=== PATIENT | male | born 1960 | race Caucasian/White ===

== ENCOUNTER 2021-12-01 07:05 | Inpatient (IN) | payer MEDICARE, OTHER ==
[~2021-12-01] VITALS: Ht 185.4 cm; Wt 120.6 kg
[2021-12-01] MEDS ORDERED: IPRATROPIUM BROM 0.5 MG/2.5ML INH SOL NEB ONE (07:15)
[2021-12-01] MEDS ORDERED: methylPREDNISolone SOD SUCC 125 MG/2 ML VL IV ONE (07:15)
[2021-12-01] MEDS ORDERED: ALBUTEROL SULF 2.5 MG/0.5ML(0.5%) NEB SOLN NEB ONE (07:15)
[2021-12-01] MEDS: MAGNESIUM SULFATE 1GM/100ML 100 ML IV SCH ×2 (07:33→08:15)
[2021-12-01 07:36] LABS: Basophils # (auto) 0.1 10 ^3/uL (0-0.2); Basophils % (auto) 0.9 % (0.0-2.0); Eosinophils # (auto) 0.2 10 ^3/uL (0-0.8); Eosinophils % (auto) 1.2 % (0.0-7.0); Hematocrit 38.9 % (41.0-53.0); Hemoglobin 12.4 g/dL (13.5-17.5); Lymphocytes # (auto) 1.5 10 ^3/uL (0.4-5.4); Lymphocytes % (auto) 11.3 % (10.0-50.0); Mean Corpuscular Hemoglobin 27.3 pg (28.0-32.0); Mean Corpuscular Hgb Conc. 31.9 g/dL (32.0-36.0); Mean Corpuscular Volume 85.7 fL (80.0-100.0); Monocytes # (auto) 1.1 10 ^3/uL (0-1.3); Monocytes % (auto) 8.4 % (0.0-12.0); Neutrophils # (auto) 10.5 10 ^3/uL (1.6-8.6); Neutrophils % (auto) 78.2 % (37.0-80.0); Nucleated Red Blood Cells % 0.1 %; Red Blood Cells 4.54 10^6/uL (4.5-5.90); Red Cell Distribution Width 14.4 % (11.8-14.3); White Blood Cell 13.4 10^3/uL (4.4-10.8)
[2021-12-01 08:00] LABS: Albumin 3.1 g/dL (3.4-5.0); BUN/Creatinine Ratio 18.8; Calcium 9.2 mg/dL (8.5-10.1); Magnesium 2.2 mg/dL (1.6-2.6); Potassium 4.1 mmol/L (3.5-5.1)
[2021-12-01] MEDS ORDERED: VANCOMYCIN 1GM/250ML 250 ML IV ONE (08:00)
[2021-12-01] MEDS ORDERED: CEFEPIME 1 GM in SODIUM CHL 0.9% 50 ML IV ONE ×2 (08:00→09:45)
[2021-12-01 08:07] LABS: Bilirubin, Total 0.4 mg/dL (0.2-1.0); Total Protein 7.9 g/dL (6.4-8.2)
[2021-12-01] MEDS ORDERED: IOHEXOL 350 MG/ML 100ML IJ ONE (08:47)
[2021-12-01] MEDS ORDERED: MORPHINE SULFATE 4 MG/ML SYR/VIAL IV PRN (11:00)
[2021-12-01] MEDS ORDERED: ONDANSETRON HCL 4 MG/2 ML VIAL IV PRN (11:00)
[2021-12-01] MEDS ORDERED: FUROSEMIDE 40 MG/4 ML VIAL IV ONE (11:15)
[2021-12-01] MEDS ORDERED: ALBUTEROL SULF 2.5 MG/0.5ML(0.5%) NEB SOLN NEB PRN (11:15)
[2021-12-01 11:44] LABS: Cholesterol 142 mg/dL (< 200)
[2021-12-01 11:47] LABS: HDL Cholesterol 49 mg/dL (40-59); LDL Cholesterol 74 mg/dL (< 100); Triglycerides 101 mg/dL (< 150)
[2021-12-01 12:58] LABS: Urine Bacteria NONE SEEN /hpf (None Seen); Urine Blood Negative /uL (Negative); Urine Mucus FEW (None Seen); Urine WBC 1 /hpf (0 - 3)
[2021-12-01 13:01] LABS: Alcohol, Urine < 3.0 mg/dL (0-10); Amphetamine Screen, Urine NEGATIVE (NEGATIVE); Barbiturate Scree,Urine NEGATIVE (NEGATIVE); Benzodiazephine Screen, Urine NEGATIVE (NEGATIVE); Cannabinoid Screen, Urine NEGATIVE (NEGATIVE); Cocaine Screen, Urine NEGATIVE (NEGATIVE); Opiate Scree,Urine POSITIVE (NEGATIVE); Phencyclidine Screen, Urine NEGATIVE (NEGATIVE)
[2021-12-01] MEDS: AZITHROMYCIN 500MG/ 250ML 250 ML IV SCH (13:02)
[2021-12-01] MEDS: SODIUM CHLORIDE 0.9% 1,000 ML IV SCH ×2 (13:03→23:30)
[2021-12-01 13:05] VITALS: BP 113/64
[2021-12-01 13:06] LABS: Urine Specific Gravity > 1.050 (1.001-1.035)
[2021-12-01 15:05] VITALS: BP 120/70
[2021-12-01 15:10] VITALS: BP 120/70
[2021-12-01 20:00] VITALS: BP 119/63
[2021-12-01 22:00] VITALS: BP 119/63
[2021-12-01] MEDS: methylPREDNISolone SOD SUCC 40 MG/ML VL IV SCH (22:16)
[2021-12-02] VITALS (7 sets, daily range): BP systolic 123–141; BP diastolic 63–78
[2021-12-02 06:32] LABS: Basophils # (auto) 0 10 ^3/uL (0-0.2); Basophils % (auto) 0.1 % (0.0-2.0); Eosinophils # (auto) 0 10 ^3/uL (0-0.8); Hemoglobin 11.1 g/dL (13.5-17.5); Lymphocytes # (auto) 0.8 10 ^3/uL (0.4-5.4); Lymphocytes % (auto) 7.4 % (10.0-50.0); Mean Corpuscular Hemoglobin 27.3 pg (28.0-32.0); Mean Corpuscular Hgb Conc. 32.5 g/dL (32.0-36.0); Mean Corpuscular Volume 83.9 fL (80.0-100.0); Monocytes # (auto) 0.5 10 ^3/uL (0-1.3); Monocytes % (auto) 4.1 % (0.0-12.0); Neutrophils # (auto) 9.8 10 ^3/uL (1.6-8.6); Neutrophils % (auto) 88.4 % (37.0-80.0); Nucleated Red Blood Cells % 0.1 %; Red Blood Cells 4.05 10^6/uL (4.5-5.90); Red Cell Distribution Width 14.2 % (11.8-14.3)
[2021-12-02 06:41] LABS: Potassium 4.2 mmol/L (3.5-5.1)
[2021-12-02 06:46] LABS: Albumin 2.7 g/dL (3.4-5.0); BUN/Creatinine Ratio 28.4
[2021-12-02 06:48] LABS: Bilirubin, Total 0.2 mg/dL (0.2-1.0); Total Protein 7.1 g/dL (6.4-8.2)
[2021-12-02] MEDS: AZITHROMYCIN 500MG/ 250ML 250 ML IV SCH (10:09)
[2021-12-02] MEDS: methylPREDNISolone SOD SUCC 40 MG/ML VL IV SCH ×2 (10:09→22:06)
[2021-12-02] MEDS: ENOXAPARIN SOD 40 MG/0.4 ML SYRINGE SC SCH (10:10)
[2021-12-02] MEDS ORDERED: cefTRIAXone 1GM/50ML D5W 50 ML IV ONE (12:00)
[2021-12-02] MEDS ORDERED: SERT50TA19 PO (13:43)
[2021-12-02] MEDS ORDERED: CIPR500T4 PO (13:43)
[2021-12-02] MEDS ORDERED: HYDR-4798 PO ×2 (13:43)
[2021-12-02] MEDS ORDERED: ENO40SY SUBCUT (13:43)
[2021-12-02] MEDS ORDERED: ERGO1CAP23 PO (13:43)
[2021-12-02] MEDS ORDERED: BISO5TAB44 PO (13:43)
[2021-12-02] MEDS ORDERED: SERTRALINE HCL 50 MG TAB PO ONE (14:00)
[2021-12-03 05:00] VITALS: BP 144/88
[2021-12-03 07:00] VITALS: BP 130/71
[2021-12-03 08:00] VITALS: BP 130/71
[2021-12-03] MEDS ORDERED: ALBUTEROL SULF 2.5 MG/0.5ML(0.5%) NEB SOLN NEB STA (08:30)
[2021-12-03] MEDS ORDERED: IPRATROPIUM BROM 0.5 MG/2.5ML INH SOL NEB STA (08:30)
[2021-12-03] MEDS ORDERED: ALBUTEROL SULF 2.5 MG/0.5ML(0.5%) NEB SOLN ONE (08:38)
[2021-12-03] MEDS ORDERED: IPRATROPIUM BROM 0.5 MG/2.5ML INH SOL ONE (08:41)
[2021-12-03] MEDS ORDERED: BUDESONIDE (INHALATION) 0.5 MG/2 ML NEB ONE (08:41)
[2021-12-03 08:53] VITALS: BP 141/85
[2021-12-03] MEDS ORDERED: cefTRIAXone 1GM/50ML D5W 50 ML IV SCH (09:00)
[2021-12-03] MEDS: methylPREDNISolone SOD SUCC 40 MG/ML VL IV SCH (09:01)
[2021-12-03] MEDS: AZITHROMYCIN 500MG/ 250ML 250 ML IV SCH (09:01)
[2021-12-03] MEDS: ENOXAPARIN SOD 40 MG/0.4 ML SYRINGE SC SCH (09:03)
[2021-12-03] MEDS: ALBUTEROL SULF 2.5 MG/0.5ML(0.5%) NEB SOLN NEB SCH ×2 (10:00→14:38)
[2021-12-03] MEDS ORDERED: BUDESONIDE (INHALATION) 0.5 MG/2 ML NEB NEB SCH (10:00)
[2021-12-03] MEDS: IPRATROPIUM BROM 0.5 MG/2.5ML INH SOL NEB SCH ×2 (10:00→14:38)
[2021-12-03] MEDS ORDERED: SERTRALINE HCL 50 MG TAB PO SCH (10:00)
[2021-12-03] MEDS ORDERED: PRED20TA2 PO (11:20)
[2021-12-03] MEDS ORDERED: DOXY-112 PO (11:21)
[2021-12-03 13:00] VITALS: BP 124/65
[2021-12-03 14:18] VITALS: BP 130/71
== END 2021-12-03 15:30 | disposition home or self-care (01) | DRG 193 ==
LOC: ER 07:05 → EDBD 07:05 → TELE-EAST 10:57
PROVIDERS: ADMIT Registered Nurse; ATTEND Registered Nurse
PROC: 5A09357 Assistance with Respiratory Ventilation, Less than 24 Consecutive Hours, Continuous Positive Airway Pressure (ICD-10-PCS; principal; 2021-12-01)
DX: J18.9 Pneumonia, unspecified organism (principal); J96.21 Acute and chronic respiratory failure with hypoxia; J96.22 Acute and chronic respiratory failure with hypercapnia; J44.0 Chronic obstructive pulmonary disease with (acute) lower respiratory infection; J44.1 Chronic obstructive pulmonary disease with (acute) exacerbation; D63.8 Anemia in other chronic diseases classified elsewhere; E66.9 Obesity, unspecified; R91.1 Solitary pulmonary nodule; E88.09 Other disorders of plasma-protein metabolism, not elsewhere classified; I48.91 Unspecified atrial fibrillation; Z68.35 Body mass index [BMI] 35.0-35.9, adult; Z68.34 Body mass index [BMI] 34.0-34.9, adult; Z87.891 Personal history of nicotine dependence; Z98.2 Presence of cerebrospinal fluid drainage device; Z99.81 Dependence on supplemental oxygen; Z20.822 Contact with and (suspected) exposure to COVID-19
CPT/HCPCS: 36415; 36600; 71045; 71275; 80053; 80061; 80307; 81001; 82805; 83036; 83605; 83735; 83880; 84443; 84484; 85025; 87040; 87081; 93005; 94640; 94660; 96365; 96366; 96367; 96368; 96375; 99291; G0378; J0696

== ENCOUNTER 2025-02-14 12:50 | Inpatient (IN) | payer MEDICARE, OTHER ==
[~2025-02-14] VITALS: Ht 185.4 cm; Wt 119.4 kg
[~2025-02-14 12:50] MED LIST: BISO5TAB44 PO; CIPR500T4 PO; DOXY-267 PO; ENO40SY SUBCUT; ERGO1CAP23 PO; HYDR-4798 PO; PRED20TA2 PO; SERT-206 PO
--- NOTE | 2025-02-14 13:08 | ED.PDOC ---
SOB-HPI HPI Comments 65 year old male presents to the ED via EMS with a chief complaint of shortness of breath onset 1 day. Per EMS, patient has PMHx COPD, chronic hypoxic respiratory distress. He began experiencing shortness of breath, worsen today after bending over to lift an object. Upon EMS arrival, patient was on 4L O2, sat was 70%, was given 3 breathing treatments in route to ED with no improvement of symptoms. No other symptoms or modifying factors present at this time. Chief Complaint: Shortness of Breath Time Seen by MD: 12:55 Reviewed notes: Medications, Allergies Information Source: Patient, Emergency Med Personnel Mode of Arrival: EMS Severity: Moderate Timing: Days Duration: Since onset Context: With Light Exertion PE Risk Factors: None History of: COPD Prehospital treatment: Breathing Tx (3) Associated Signs and Symptoms: None Past Medical History PAST MEDICAL HISTORY: AFIB, COPD Family History Family History: Reviewed,noncontributory to illness Social History Smoker: Non-Smoker Alcohol: Denies ETOH Use Drugs: Denies Drug Use Lives In: Home Constitutional: denies: chills, diaphoresis, fatigue, fever, malaise, sweats, weakness, others EENTM: denies: blurred vision, double vision, ear bleeding, ear discharge, ear drainage, ear pain, ear ringing, eye pain, eye redness, hearing loss, mouth pain, mouth swelling, nasal discharge, nose bleeding, nose congestion, nose pain, photophobia, tearing, throat pain, throat swelling, voice changes, others Respiratory: reports: shortness of breath; denies: cough, hemoptysis, orthopnea, SOB at rest, SOB with excertion, stridor, wheezing, others Gastrointestinal: denies: abdomen distended, abdominal pain, blood streaked bowels, constipated, diarrhea, dysphagia, difficulty swallowing, hematemesis, melena, nausea, poor appetite, poor fluid intake, rectal bleeding, rectal pain, vomiting, others Genitourinary: denies: burning, dysuria, flank pain, frequency, hematuria, incontinence, penile discharge, penile sore, pain, testicle pain, testicle swelling, urgency, others Neurological: denies: dizziness, fainting, headache, left sided numbness, left sided weakness, numbness, paresthesia, pre-existing deficit, right sided numbness, right sided weakness, seizure, speech problems, tingling, tremors, weakness, others Musculoskeletal: denies: back pain, gout, joint pain, joint swelling, muscle pain, muscle stiffness, neck pain, others Integumetry: denies: bruises, change in color, change in hair/nails, dryness, laceration, lesions, lumps, rash, wounds, others Allergic/Immunocompromised: denies: Difficulty Healing, Frequent Infections, Hives, Itching, others Hematologic/Lymphatic: denies: anemia, blood clots, easy bleeding, easy bruising, swollen glands, others Endocrine: denies: excessive hunger, excessive sweating, excessive thirst, excessive urination, flushing, intolerance to cold, intolerance to heat, unexplained weight gain, unexplained weight loss, others Psychiatric: denies: anxiety, bipolar disorder, depression, hopeless, panic disorder, schizophrenia, sleepless, suicidal, others All Other Systems: Reviewed and Negative Physical Exam General Appearance: Normal HEENT: Normal ENT Inspection, Pharynx Normal, TMs Normal Neck: Full Range of Motion, Non-Tender, Normal, Normal Inspection Respiratory: Decreased Breath Sounds (Bilateral) Cardiovascular: No Edema, No JVD, No Murmur, No Gallop, Normal Peripheral Pulses, Regular Rate/Rhythm Breast Exam: Deferred Gastrointestinal: No Organomegaly, Non Tender, No Pulsatile Mass, Normal Bowel Sounds, Soft Genitalia: Deferred Pelvic: Deferred Rectal: Deferred Extremities: No calf tenderness, Normal capillary refill, Normal inspection, Normal range of motion, Non-tender, No pedal edema Musculoskeletal : Apperance: Normal Neurologic: Alert, can conveyor feeder II-XII nml as Tested, No Motor Deficits, Normal Affect, Normal Mood, No Sensory Deficits Cerebellar Function: Normal Reflexes: Normal Skin: Dry, Normal Color, Warm Lymphatic: No Adenopathy Was a procedure done? Was a procedure done?: No Differential Dx Differential Diagnosis: Anxiety, Asthma, Bronchitis, Cardiogenic Shock, CHF, CO PD, Dysrhythmia, Hyperventilation, Myocardial infarction, Panic Attack, Pneumonia, Pneumothorax, Pulmonary Embolism, Respiratory Distress X-Ray, Labs, Meds, VS Vital Signs Date Time Temp Pulse Resp B/P (MAP) Pulse Ox O2 Delivery O2 Flow Rate FiO2 02/14/25 14:13 99.0 101 23 133/88 95 35 99.0 02/14/25 14:00 90 16 119/80 (93) 92 02/14/25 14:00 92 Nasal Cannula* 4 36 02/14/25 13:57 107 133/88 Facial BiPAP Mask 35 02/14/25 13:54 95 Bi-Pap+ 35 35 02/14/25 13:46 99 20 95 Bi-Pap+ 35 35 02/14/25 13:42 19 94 Bi-Pap+ 35 35 02/14/25 13:10 97 02/14/25 13:03 96 02/14/25 13:00 96.9 98 20 133/68 (89) 96 96.9 02/14/25 12:59 101 133/68 Facial BiPAP Mask 35 02/14/25 12:51 99.0 94 34 139/67 (91) 97 99.0 Lab Test 02/14/25 14:13 02/14/25 13:51 02/14/25 13:12 Range/Units Lactic Acid Level 1.6 0.4-2.0 mmol/L Blood Gas Specimen Type Arterial Blood Gas Sample Site Left radial Blood Gas Patient Temperature 37.0 Arterial Blood Date Drawn [id number] Arterial Blood pH 7.337 L 7.350-7.450 Arterial Blood Partial Pressure CO2 67.0 *H 35.0-48.0 mmHg Arterial Blood Partial Pressure O2 75.5 L 83.0-108.0 mmHg Arterial Blood HCO3 35.1 H 21.0-28.0 mmol/L Arterial Blood Oxygen Saturation 95.0 94.0-98.0 % Arterial Blood Base Excess 6.9 H -2.0-3.0 mmol/L Arterial Blood Oxyhemoglobin 93.0 L 94.0-98.0 % Arterial Blood Carboxyhemoglobin 1.6 H 0.5-1.5 % Arterial Blood Methemoglobin 0.5 0.0-1.5 % Reji Test Yes Blood Gas Total Hemoglobin 13.80 13.5-17.5 g/dL Blood Gas Set Respiration Rate 12.0 Blood Gas Modality Mask - bipap FiO2 % 35.0 Blood Gas EPAP 5 Blood Gas IPAP 12 Blood Gas Critical Value Read Back Yes Blood Gas Notified Whom Shani santo Blood Gas Notified Time [id number] Blood Gas Notified By Luna triniadd White Blood Count 9.2 4.4-10.8 10^3/uL Red Blood Count 4.56 4.5-5.90 10^6/uL Hemoglobin 13.1 L 13.5-17.5 g/dL Hematocrit 40.4 L 41.0-53.0 % Mean Corpuscular Volume 88.6 80.0-100.0 fL Mean Corpuscular Hemoglobin 28.8 28.0-32.0 pg Mean Corpuscular Hemoglobin Concent 32.6 32.0-36.0 g/dL Red Cell Distribution Width 13.2 11.8-14.3 % Platelet Count 201 140-450 10^3/uL Mean Platelet Volume 8.8 6.9-10.8 fL Neutrophils (%) (Auto) 77.4 37.0-80.0 % Lymphocytes (%) (Auto) 14.3 10.0-50.0 % Monocytes (%) (Auto) 6.7 0.0-12.0 % Eosinophils (%) (Auto) 0.9 0.0-7.0 % Basophils (%) (Auto) 0.7 0.0-2.0 % Neutrophils # (Auto) 7.1 1.6-8.6 10 ^3/uL Lymphocytes # (Auto) 1.3 0.4-5.4 10 ^3/uL Monocytes # (Auto) 0.6 0-1.3 10 ^3/uL Eosinophils # (Auto) 0.1 0-0.8 10 ^3/uL Basophils # (Auto) 0.1 0-0.2 10 ^3/uL Nucleated Red Blood Cells 0.0 % Sodium Level 143 136-145 mmol/L Potassium Level 4.3 3.5-5.1 mmol/L Chloride Level 101 98-107 mmol/L Carbon Dioxide Level 36 H 20-31 mmol/L Anion Gap 6 5-15 Blood Urea Nitrogen 14 9-23 mg/dL Creatinine 0.92 0.700-1.30 mg/dL Glomerular Filtration Rate Calc 92 >90 mL/min BUN/Creatinine Ratio 15.2 10.0-20.0 Serum Glucose 128 H 74-106 mg/dL Calcium Level 10.5 H 8.7-10.4 mg/dL Current Medications Medications (Trade) Dose Ordered Sig/Gagan Route Start Time Stop Time Status Last Admin Albuterol (Ventolin Medneb) 10 mg ONCE ONCE NEB 02/14/25 13:15 02/14/25 13:16 DC 02/14/25 13:42 Ipratropium [place] (Atrovent Medneb) 0.5 mg ONCE ONCE NEB 02/14/25 13:15 02/14/25 13:16 DC 02/14/25 13:42 Methylprednisolone Sodium Succinate (Solu Medrol) 125 mg ONCE ONCE IV 02/14/25 13:15 02/14/25 13:16 DC 02/14/25 13:53 Magnesium Sulfate/ Dextrose 100 ml @ 100 mls/hr ONCE ONCE IV 02/14/25 13:15 02/14/25 14:14 DC 02/14/25 13:53 Lactated Ringer's 2,350 ml @ 2,350 mls/hr ONCE ONCE IV 02/14/25 14:00 02/14/25 14:59 DC 02/14/25 14:26 Vancomycin HCl 200 ml @ 200 mls/hr ONCE ONCE IV 02/14/25 14:00 02/14/25 14:59 DC 02/14/25 14:26 Cefepime HCl 50 ml @ 12.5 mls/hr Q8HR IV 02/14/25 14:00 02/14/25 14:25 [place] [id number] Ph: [phone] DIAGNOSTIC IMAGING Diagnostic Imaging Report : [id number] Signed PATIENT: MICAELA RICHARDSONT: [id number] UNIT: [id number] : 1960 LOC: ER ROOM / BED: / AGE / SEX: 65 / M ADM STATUS: REG ER SERVICE 1303 ORDERING PHYSICIAN: LISA SINGH MD PROCEDURE(s): CXRP - CHEST PORTABLE REASON: sob ORDER NUMBER(s): [id number], ACCESSION NUMBER(s): [id number] CHEST RADIOGRAPH Indication: sob Technique: Single frontal view of the chest was obtained Comparison: CHEST PORTABLE on DOS: 12/01/21, CXRP on DOS: 12/01/21 FINDINGS: Lines and Tubes: None Lungs: Prominent bronchovascular markings right base. These findings were present on chest x-ray of 2021 and May either represent recurrent disease or chronic disease. Pleura: No effusion. No pneumothorax. Cardiomediastinal contours: Unremarkable Bones: No acute osseous abnormality. IMPRESSION: 1. Dominant bronchovascular markings right base. May represent recurrent or chr onic disease. HS:Y ATED BY: ZOILA SINHA Jr., DO DICTATED DATE/TIME: 02/14/251419 SIGNED BY: ZOILA SINHA Jr., SIGNED DATE/TIME: 02/14/251419 CC: Time of 1ST Reevaluation: 13:15 Reevaluation 1ST: Unchanged Time of 2ND Reevaluation: 15:10 Reevaluation 2ND: Improved Patient Education/Counseling: Diagnosis, Treatment, Prognosis, Need For Follow Up Family Education/Counseling: Diagnosis, Treatment, Prognosis, Need For Follow Up, No Family Present Comments pt has copd exacerbation with sepsis. the cxr shows chronic changes, but pneumonia cannot be excluded. he has sepsis with end organ failure from acute on chronic respiratory failure. he is improved and off bipap now. however, he will be admitted Additional Information Previous visits reviewed: 11/2021 COPD exacerbation The following tests were ordered, and results were reviewed by me: CBC, BMP, XY CHEST Additional Information was gathered from interviewing the following independent historians: EMS I reviewed and agreed with the following test results read by other providers: XY CHEST I discussed treatment and results with medical personnel and: patient Comprehensive systems review obtained and negative except for what is stated in the HPI. SEPSIS Sepsis Screen Date sepsis recognized/suspect: Feb 14, 2025 Time Sepsis recognized/suspect: 1251 Recent Procedure: No On Antibiotic Therapy: No Respiratory Rate >20: No Heart Rate >90: Yes Temp<36 C (96.8 F) or >38.3 C: No SBP <90 or MAP <65 mmHG: No New Acute Mental Status Change: No Is the patient on CPAP, BIPAP,: No Physician Orders BIPAP (02/14/25 12:58) Abg W/ Co-Ox (02/14/25 13:40) Abg W/ Co-Ox (02/14/25 13:03) Chest Portable (02/14/25 13:03) BIPAP (02/14/25 13:03) Urinalysis (02/14/25 13:52) Accucheck (02/14/25 13:52) Blood Culture (02/14/25 13:52) Cefepime 1gm/ 50ml (Maxipime 1gm/50ml) (02/14/25 14:00) Notify Md If Map <65 Or Bp<90 (02/14/25 13:52) If Map<65 Start Vasopressor (02/14/25 13:52) Vital Signs Date Time Temp Pulse Resp B/P (MAP) Pulse Ox O2 Delivery O2 Flow Rate FiO2 02/14/25 14:13 99.0 101 23 133/88 95 35 99.0 02/14/25 14:00 90 16 119/80 (93) 92 02/14/25 14:00 92 Nasal Cannula* 4 36 02/14/25 13:57 107 133/88 Facial BiPAP Mask 35 02/14/25 13:54 95 Bi-Pap+ 35 35 02/14/25 13:46 99 20 95 Bi-Pap+ 35 35 02/14/25 13:42 19 94 Bi-Pap+ 35 35 02/14/25 13:10 97 02/14/25 13:03 96 02/14/25 13:00 96.9 98 20 133/68 (89) 96 96.9 02/14/25 12:59 101 133/68 Facial BiPAP Mask 35 02/14/25 12:51 99.0 94 34 139/67 (91) 97 99.0 Laboratory Tests Test 02/14/25 13:12 02/14/25 14:13 White Blood Count 9.2 10^3/uL (4.4-10.8) Lactic Acid Level 1.6 mmol/L (0.4-2.0) Medications Medications Dose Ordered Sig/Gagan Route Start Time Stop Time Status Last Admin Dose Admin Albuterol 10 mg ONCE ONCE NEB 02/14/25 13:15 02/14/25 13:16 DC 02/14/25 13:42 Cefepime HCl 50 ml @ 12.5 mls/hr Q8HR IV 02/14/25 14:00 02/14/25 14:25 Ipratropium [place] 0.5 mg ONCE ONCE NEB 02/14/25 13:15 02/14/25 13:16 DC 02/14/25 13:42 Lactated Ringer's 2,350 ml @ 2,350 mls/hr ONCE ONCE IV 02/14/25 14:00 02/14/25 14:59 DC 02/14/25 14:26 Magnesium Sulfate/ Dextrose 100 ml @ 100 mls/hr ONCE ONCE IV 02/14/25 13:15 02/14/25 14:14 DC 02/14/25 13:53 Methylprednisolone Sodium Succinate 125 mg ONCE ONCE IV 02/14/25 13:15 02/14/25 13:16 DC 02/14/25 13:53 Vancomycin HCl 200 ml @ 200 mls/hr ONCE ONCE IV 02/14/25 14:00 02/14/25 14:59 DC 02/14/25 14:26 Reassessment Post Fluid SEPSIS FOCUS EXAM(REASSESSMENT Sepsis reassessment focused exam completed. Date: 02/14/25 Time 13:53 Departure 1 Departure Time of Disposition: 15:11 Impression: Primary Impression: COPD with acute exacerbation Additional Impressions: Acute respiratory failure with hypoxia Severe sepsis with acute organ dysfunction Disposition: ADMITTED INPATIENT Admit to: Tele Condition: Serious Discharged With: Self, Spouse Critical Care Note Critical Care Time?: Yes (45 min-critical care time only) Critical care comment: Due to concerns for patients condition deteriorating, the care required my highest level of attention and readiness to intervene. I assessed the patient, reviewed the medical records, ordered the appropriate tests and treatments, then reassessed for results and responsiveness. I communicated with medical personnel and consultants and formulated a plan of care. Total critical care time excludes any procedures Stability Stability form required: No Heart Score Heart Score: Heart Score Response (Comments) Value History Slightly Suspicious 0 EKG Repolarization Disturb 1 Age >65 2 Risk Factors 1 or 2 risk factors 1 Troponin Normal limit 0 Total 4 I personally scribed for LISA SINGH MD ([email or web address]) on 02/14/25 at 13:07. Electronically submitted by Amy Jacques ([email or web address]). I personally scribed for LISA SINGH MD ([email or web address]) on 02/14/25 at 13:09. Electronically submitted by Amy Jacques ([email or web address]). I personally scribed for LISA SINGH MD ([email or web address]) on 02/14/25 at 14:26. Electronically submitted by Amy Jacques ([email or web address]). LISA SINGH MD Feb 14, 2025 13:07
--- NOTE | 2025-02-14 13:10 | ECG ---
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
[2025-02-14 13:29] LABS: Basophils # (auto) 0.1 10 ^3/uL (0-0.2); Basophils % (auto) 0.7 % (0.0-2.0); Eosinophils # (auto) 0.1 10 ^3/uL (0-0.8); Eosinophils % (auto) 0.9 % (0.0-7.0); Hematocrit 40.4 % (41.0-53.0); Hemoglobin 13.1 g/dL (13.5-17.5); Lymphocytes # (auto) 1.3 10 ^3/uL (0.4-5.4); Lymphocytes % (auto) 14.3 % (10.0-50.0); Mean Corpuscular Hemoglobin 28.8 pg (28.0-32.0); Mean Corpuscular Hgb Conc. 32.6 g/dL (32.0-36.0); Mean Corpuscular Volume 88.6 fL (80.0-100.0); Monocytes # (auto) 0.6 10 ^3/uL (0-1.3); Monocytes % (auto) 6.7 % (0.0-12.0); Neutrophils # (auto) 7.1 10 ^3/uL (1.6-8.6); Neutrophils % (auto) 77.4 % (37.0-80.0); Platelet Count (auto) 201 10^3/uL (140-450); Red Blood Cells 4.56 10^6/uL (4.5-5.90); Red Cell Distribution Width 13.2 % (11.8-14.3); White Blood Cell 9.2 10^3/uL (4.4-10.8)
[2025-02-14 13:36] LABS: Chloride 101 mmol/L (98-107); Potassium 4.3 mmol/L (3.5-5.1); Sodium 143 mmol/L (136-145)
[2025-02-14 13:37] LABS: Anion Gap 6 (5-15)
[2025-02-14 13:42] LABS: BUN/Creatinine Ratio 15.2 (10.0-20.0); Blood Urea Nitrogen 14 mg/dL (9-23)
[2025-02-14] MEDS: ALBUTEROL SULF 2.5 MG/0.5ML(0.5%) NEB SOLN NEB ONE (13:42)
[2025-02-14] MEDS: IPRATROPIUM BROM 0.5 MG/2.5ML INH SOL NEB ONE (13:42)
[2025-02-14 13:46] VITALS: PULSE 99; RESP 20; O2SAT 95
[2025-02-14] MEDS: MAGNESIUM SULFATE 1GM/100ML 100 ML IV ONE (13:53)
[2025-02-14] MEDS: methylPREDNISolone SOD SUCC 125 MG/2 ML VL IV ONE (13:53)
[2025-02-14 14:00] LABS: Calcium 10.5 mg/dL (8.7-10.4); Carbon Dioxide 36 mmol/L (20-31); Glucose 128 mg/dL (74-106)
[2025-02-14 14:07] LABS: Base Excess 6.9 mmol/L (-2.0-3.0)
[2025-02-14 14:13] VITALS: BP 133/88; PULSE 101; RESP 23; TEMP 99; O2SAT 95
--- NOTE | 2025-02-14 14:23 | DVH ---
CHEST RADIOGRAPH Indication: sob Technique: Single frontal view of the chest was obtained Comparison: CHEST PORTABLE on DOS: 12/01/21, CXRP on DOS: 12/01/21 FINDINGS: Lines and Tubes: None Lungs: Prominent bronchovascular markings right base. These findings were present on chest x-ray of 2 022 and May either represent recurrent disease or chronic disease. Pleura: No effusion. No pneumothorax. Cardiomediastinal contours: Unremarkable Bones: No acute osseous abnormality. IMPRESSION: 1. Dominant bronchovascular markings right base. May represent recurrent or chronic disease. HS:Y
[2025-02-14] MEDS: CEFEPIME 1GM/ 50ML 50 ML IV SCH (14:25)
[2025-02-14] MEDS: LACTATED RINGER'S 2,350 ML IV ONE (14:26)
[2025-02-14] MEDS: VANCOMYCIN 1GM/200ML PM 200 ML IV ONE (14:26)
--- NOTE | 2025-02-14 17:28 | DVHHP2 ---
History of Present Illness History of Present Illness 65 year old male presents to the ED via EMS with a chief complaint of shortness of breath onset 1 day. Per EMS, patient has PMHx COPD, chronic hypoxic respiratory distress. He began experiencing shortness of breath, worsen today after bending over to lift an object. Upon EMS arrival, patient was on 4L O2, sat was 70%, was given 3 breathing treatments in route to ED with no improvement of symptoms. No other symptoms or modifying factors present at this time. Review of Systems Allergies: Coded Allergies: NO KNOWN ALLERGIES (Unverified , 12/01/21) Medications Current Medications Medications Dose Ordered Sig/Gagan Route Start Time Stop Time Status Last Admin Dose Admin Cefepime HCl 50 ml @ 12.5 mls/hr Q8HR IV 02/14/25 14:00 02/14/25 14:25 12.5 MLS/HR Exam Vital Signs Vital Signs Date Time Temp Pulse Resp B/P (MAP) Pulse Ox O2 Delivery O2 Flow Rate FiO2 02/14/25 16:00 97.7 86 16 118/60 (79) 91 97.7 02/14/25 14:13 35 02/14/25 14:00 Nasal Cannula* 4 Exam GEN: Healthy appearing, well-developed, NAD. HEENT: NC/AT; MMM. CV: RRR, no m/r/g. LUNGS: Distant diffuse expiratory wheezing in all lung boyer ABD: Soft, NT/ND, NBS, no masses or organomegaly. EXT: skin Warm, well perfused. no rashes. No clubbing, cyanosis, or edema. NEURO: Ambulating with no limitations. No focal deficits. Labs/Xrays Labs Test 02/14/25 14:13 02/14/25 13:51 02/14/25 13:12 Range/Units Lactic Acid Level 1.6 0.4-2.0 mmol/L Blood Gas Specimen Type Arterial Blood Gas Sample Site Left radial Blood Gas Patient Temperature 37.0 Arterial Blood Date Drawn [id number] Arterial Blood pH 7.337 L 7.350-7.450 Arterial Blood Partial Pressure CO2 67.0 *H 35.0-48.0 mmHg Arterial Blood Partial Pressure O2 75.5 L 83.0-108.0 mmHg Arterial Blood HCO3 35.1 H 21.0-28.0 mmol/L Arterial Blood Oxygen Saturation 95.0 94.0-98.0 % Arterial Blood Base Excess 6.9 H -2.0-3.0 mmol/L Arterial Blood Oxyhemoglobin 93.0 L 94.0-98.0 % Arterial Blood Carboxyhemoglobin 1.6 H 0.5-1.5 % Arterial Blood Methemoglobin 0.5 0.0-1.5 % Reji Test Yes Blood Gas Total Hemoglobin 13.80 13.5-17.5 g/dL Blood Gas Set Respiration Rate 12.0 Blood Gas Modality Mask - bipap FiO2 % 35.0 Blood Gas EPAP 5 Blood Gas IPAP 12 Blood Gas Critical Value Read Back Yes Blood Gas Notified Whom Shani bowman. Blood Gas Notified Time [id number] Blood Gas Notified By Luna trinidad White Blood Count 9.2 4.4-10.8 10^3/uL Red Blood Count 4.56 4.5-5.90 10^6/uL Hemoglobin 13.1 L 13.5-17.5 g/dL Hematocrit 40.4 L 41.0-53.0 % Mean Corpuscular Volume 88.6 80.0-100.0 fL Mean Corpuscular Hemoglobin 28.8 28.0-32.0 pg Mean Corpuscular Hemoglobin Concent 32.6 32.0-36.0 g/dL Red Cell Distribution Width 13.2 11.8-14.3 % Platelet Count 201 140-450 10^3/uL Mean Platelet Volume 8.8 6.9-10.8 fL Neutrophils (%) (Auto) 77.4 37.0-80.0 % Lymphocytes (%) (Auto) 14.3 10.0-50.0 % Monocytes (%) (Auto) 6.7 0.0-12.0 % Eosinophils (%) (Auto) 0.9 0.0-7.0 % Basophils (%) (Auto) 0.7 0.0-2.0 % Neutrophils # (Auto) 7.1 1.6-8.6 10 ^3/uL Lymphocytes # (Auto) 1.3 0.4-5.4 10 ^3/uL Monocytes # (Auto) 0.6 0-1.3 10 ^3/uL Eosinophils # (Auto) 0.1 0-0.8 10 ^3/uL Basophils # (Auto) 0.1 0-0.2 10 ^3/uL Nucleated Red Blood Cells 0.0 % Sodium Level 143 136-145 mmol/L Potassium Level 4.3 3.5-5.1 mmol/L Chloride Level 101 98-107 mmol/L Carbon Dioxide Level 36 H 20-31 mmol/L Anion Gap 6 5-15 Blood Urea Nitrogen 14 9-23 mg/dL Creatinine 0.92 0.700-1.30 mg/dL Glomerular Filtration Rate Calc 92 >90 mL/min BUN/Creatinine Ratio 15.2 10.0-20.0 Serum Glucose 128 H 74-106 mg/dL Calcium Level 10.5 H 8.7-10.4 mg/dL Assessment/Plan Assessment/Plan Acute hypoxic respiratory failure due to below Acute COPD exacerbation, with pneumonitis Tachycardia Tachypnea Sirs with AOD History of AFib s/p RFA, on chronic AC Pradaxa - continue home meds dabigatran, bisoprolol, amiodarone, sertraline - duo nebs q.4 while awake - Solu-Medrol 60 IV b.i.d. - Azithromycin 500 daily - Unstable for transfer, we will continue management in facility for today and reassess stability for transfer to a network facility tomorrow Diet cardiac GI prophylaxis tolerating p.o. DVT prophylaxis-dabigatran home dose Med surge Full code Plan discussed with: Patient Date of Service: Feb 14, 2025 Billing Provider: TRAVIS WALL MD Common Visit Codes: [id number] INP/OBS CARE (HIGH) Secondary Visit Codes: [id number] CARE PLAN 30 MINUTES TRAVIS WALL MD Feb 14, 2025 17:28
[2025-02-14] MEDS ORDERED: AZITHROMYCIN 500MG/ 250ML 250 ML IV ONE (17:30)
[2025-02-14 17:58] LABS: Urine Bacteria None Seen /hpf (None Seen)
[2025-02-14 18:03] LABS: Urine Blood Negative /uL (Negative); Urine Clarity Clear (Clear); Urine Color Yellow (Yellow); Urine Mucus FEW (None Seen); Urine Protein, UAD Negative (Negative); Urine Specific Gravity 1.022 (1.001-1.035); Urine Squamous Epithelial Cell FEW /hpf (<5); Urine Urobilinogen Normal (Negative); Urine WBC < 1 /HPF (0-3)
[2025-02-14] MEDS: DOXYCYCLINE 100MG/100ML 100 ML IV SCH (18:17)
[2025-02-14] MEDS: ACETAMINOPHEN 325 MG TAB PO PRN (18:26)
[2025-02-14] MEDS: IPRATROPIUM BROM 0.5 MG/2.5ML INH SOL NEB SCH (18:35)
[2025-02-14] MEDS: ALBUTEROL SULF 2.5 MG/0.5ML(0.5%) NEB SOLN NEB SCH (18:36)
[2025-02-14 19:30] VITALS: PULSE 97; RESP 24; O2SAT 88
[2025-02-14] MEDS: ONDANSETRON HCL 4 MG/2 ML VIAL IV ONE (19:42)
[2025-02-14 22:13] VITALS: BP 113/71; PULSE 92; RESP 16; TEMP 97.8; O2SAT 92
[2025-02-14] MEDS: methylPREDNISolone SOD SUCC 125 MG/2 ML VL IV SCH (22:24)
[2025-02-14] MEDS: HYDROcodone-ACET 5/325MG TAB PO PRN (22:24)
[2025-02-14] MEDS: DABIGATRAN 75 MG CAP PO SCH (22:33)
[2025-02-14 22:57] VITALS: PULSE 90; O2SAT 96
[2025-02-15] VITALS (17 sets, daily range): BP systolic 102–144; BP diastolic 61–72; PULSE 70–92; RESP 16–19; TEMP 97.5–98.8; O2SAT 92–97
[2025-02-15 06:27] LABS: Basophils # (auto) 0 10 ^3/uL (0-0.2); Basophils % (auto) 0.1 % (0.0-2.0); Eosinophils # (auto) 0 10 ^3/uL (0-0.8); Hematocrit 38.4 % (41.0-53.0); Hemoglobin 12.5 g/dL (13.5-17.5); Lymphocytes # (auto) 0.5 10 ^3/uL (0.4-5.4); Mean Corpuscular Hemoglobin 28.7 pg (28.0-32.0); Mean Corpuscular Hgb Conc. 32.5 g/dL (32.0-36.0); Mean Corpuscular Volume 88.2 fL (80.0-100.0); Monocytes # (auto) 0.1 10 ^3/uL (0-1.3); Neutrophils # (auto) 8.7 10 ^3/uL (1.6-8.6); Neutrophils % (auto) 93.9 % (37.0-80.0); Platelet Count (auto) 190 10^3/uL (140-450); Red Blood Cells 4.36 10^6/uL (4.5-5.90); Red Cell Distribution Width 13.3 % (11.8-14.3); White Blood Cell 9.2 10^3/uL (4.4-10.8)
[2025-02-15 06:51] LABS: Alanine Aminotransferase 14 U/L (7-40); Alkaline Phosphatase 75 U/L (46-116); Anion Gap 8 (5-15); Aspartate Aminotransferase 17 U/L (<34); Blood Urea Nitrogen 17 mg/dL (9-23); Calcium 9.5 mg/dL (8.7-10.4); Chloride 100 mmol/L (98-107); Potassium 4.8 mmol/L (3.5-5.1); Sodium 140 mmol/L (136-145); Total Protein 6.5 g/dL (5.7-8.2)
[2025-02-15 06:53] LABS: Bilirubin, Total 0.2 mg/dL (0.2-1.0); Carbon Dioxide 32 mmol/L (20-31); Glucose 145 mg/dL (74-106)
[2025-02-15] MEDS: AMIODARONE HCL 200 MG TAB PO SCH (08:48)
[2025-02-15] MEDS: ATENOLOL 25 MG TAB PO SCH (08:49)
[2025-02-15] MEDS: SERTRALINE HCL 50 MG TAB PO SCH (08:49)
[2025-02-15] MEDS ORDERED: ENOXAPARIN SOD 40 MG/0.4 ML SYRINGE SC SCH (10:00)
[2025-02-15] MEDS ORDERED: AZITHROMYCIN 500MG/ 250ML 250 ML IV SCH (10:00)
--- NOTE | 2025-02-15 15:53 | DVHPN2 ---
Progress Note Date Seen: Feb 15, 2025 Medical Necessity Reason Pt with a Central, PICC or Fol: No Subjective Patient reports: No new complaints Review of Systems: HEENT:Normal, CVS:Normal, RESPIRATORY:Normal, GI:Normal, :Normal, MSK:Normal, NEURO:Normal Objective vital signs Vital Sign Date Time Temp Pulse Resp B/P (MAP) Pulse Ox O2 Delivery O2 Flow Rate FiO2 02/15/25 12:51 97.9 76 18 120/63 (82) 93 97.9 02/15/25 09:54 4.0 02/15/25 09:54 Nasal Cannula* 36 Total Intake and Output 02/14/25 02/14/25 02/15/25 15:00 23:00 07:00 Intake Total 100 ml 2700 ml 301.58 ml Output Total 200 ml Balance 100 ml 2700 ml 101.58 ml medications Current Medications Medications Dose Ordered Sig/Gagan Route Start Time Stop Time Status Last Admin Dose Admin Cefepime HCl 50 ml @ 12.5 mls/hr Q8HR IV 02/14/25 14:00 02/15/25 13:28 12.5 MLS/HR Acetaminophen/ Hydrocodone Bitart 1 tab Q4HP PRN PO 02/14/25 17:15 02/15/25 13:31 1 TAB Acetaminophen 650 mg Q6HP PRN PO 02/14/25 17:15 02/14/25 18:26 650 MG Albuterol 2.5 mg Q4HWA [facility] [place] 02/14/25 18:00 02/15/25 07:10 2.5 MG Ipratropium [place] 0.5 mg Q4HWA [facility] [place] 02/14/25 18:00 02/15/25 07:11 0.5 MG Methylprednisolone Sodium Succinate 60 mg BID IV 02/14/25 22:00 02/15/25 08:49 60 MG Azithromycin 250 ml @ 125 mls/hr DAILY IV 02/15/25 10:00 UNV Doxycycline Hyclate 100 ml @ 50 mls/hr Q12H IV 02/14/25 18:00 02/15/25 08:50 50 MLS/HR Atenolol 12.5 mg DAILY PO 02/15/25 10:00 02/15/25 08:49 12.5 MG Amiodarone HCl 200 mg DAILY PO 02/15/25 10:00 02/15/25 08:48 200 MG Sertraline HCl 150 mg DAILY PO 02/15/25 10:00 02/15/25 08:49 150 MG Dabigatran 150 mg BID PO 02/14/25 22:00 02/15/25 10:32 150 MG Examination: GENERAL:Normal, HEENT:Normal, NECK:Normal, LUNGS:Normal, LUNGS:Abnormal (ON OXYGEN, DECREASED BILATERAL), CVS:Normal, ABDOMEN:Normal, MSK:Normal, SKIN:Normal, NEURO:Normal, :Normal laboratory and microbiology Laboratory Tests 02/15/25 05:17 Test 02/15/25 05:17 Range/Units Serum Glucose 145 H 74-106 mg/dL Microbiology Date/Time Source Procedure Growth Status 02/15/25 00:47 Nose MRSA Screen - Final Complete 02/14/25 14:13 Blood Blood Culture - Preliminary NO GROWTH AFTER 24 HOURS OF INCUBATION. Resulted Problem List/Assessment/Plan Problem List/Assessment/Plan #1 copd with exacerbation: cont meds #2 acute on chronic resp failure: bipap/oxygen #3 ?pneumonia- gram positive/neg: iv antibiotics #4 obesity #5 afib s/p ablation: cont meds/pradaxa unstable for transfer advance care oreedmaj-eog-[id number] spent 21 mins Plan discussed with: Patient, Spouse Date of Service: Feb 15, 2025 Billing Provider: JOHN SMITH MD Common Visit Codes: [id number] INP/OBS CARE(HIGH) Secondary Visit Codes: [id number] CARE PLAN 30 MINUTES JOHN SMITH MD Feb 15, 2025 15:52
[2025-02-15] MEDS ORDERED: ONDANSETRON HCL 4 MG/2 ML VIAL IV PRN (16:00)
[2025-02-15] MEDS: METOCLOPRAMIDE HCL 5MG/ml INJ 2ml VIAL IV PRN (17:05)
[2025-02-15] MEDS: LORazepam 2MG/ML-1ML VIAL IV PRN (19:34)
[2025-02-16] VITALS (11 sets, daily range): BP systolic 106–127; BP diastolic 58–81; PULSE 68–75; RESP 16–23; TEMP 97.3–98.5; O2SAT 91–100
--- NOTE | 2025-02-16 12:32 | DVHDS2 ---
Discharge Summary Date of Admission Feb 14, 2025 at 17:08 Date of Discharge: Feb 16, 2025 Labs/Diagnostic Data: Laboratory Results Test 02/15/25 05:17 02/14/25 17:50 02/14/25 14:13 02/14/25 13:51 White Blood Count 9.2 10^3/uL (4.4-10.8) Red Blood Count 4.36 10^6/uL (4.5-5.90) Hemoglobin 12.5 g/dL (13.5-17.5) Hematocrit 38.4 % (41.0-53.0) Mean Corpuscular Volume 88.2 fL (80.0-100.0) Mean Corpuscular Hemoglobin 28.7 pg (28.0-32.0) Mean Corpuscular Hemoglobin Concent 32.5 g/dL (32.0-36.0) Red Cell Distribution Width 13.3 % (11.8-14.3) Platelet Count 190 10^3/uL (140-450) Mean Platelet Volume 9.5 fL (6.9-10.8) Neutrophils (%) (Auto) 93.9 % (37.0-80.0) Lymphocytes (%) (Auto) 5.0 % (10.0-50.0) Monocytes (%) (Auto) 1.0 % (0.0-12.0) Eosinophils (%) (Auto) 0.0 % (0.0-7.0) Basophils (%) (Auto) 0.1 % (0.0-2.0) Neutrophils # (Auto) 8.7 10 ^3/uL (1.6-8.6) Lymphocytes # (Auto) 0.5 10 ^3/uL (0.4-5.4) Monocytes # (Auto) 0.1 10 ^3/uL (0-1.3) Eosinophils # (Auto) 0 10 ^3/uL (0-0.8) Basophils # (Auto) 0 10 ^3/uL (0-0.2) Nucleated Red Blood Cells 0.0 % Sodium Level 140 mmol/L (136-145) Potassium Level 4.8 mmol/L (3.5-5.1) Chloride Level 100 mmol/L (98-107) Carbon Dioxide Level 32 mmol/L (20-31) Anion Gap 8 (5-15) Blood Urea Nitrogen 17 mg/dL (9-23) Creatinine 0.85 mg/dL (0.700-1.30) Glomerular Filtration Rate Calc 96 mL/min (>90) BUN/Creatinine Ratio 20.0 (10.0-20.0) Serum Glucose 145 mg/dL (74-106) Calcium Level 9.5 mg/dL (8.7-10.4) Total Bilirubin 0.2 mg/dL (0.2-1.0) Aspartate Amino Transferase (AST) 17 U/L (<34) Alanine Aminotransferase (ALT) 14 U/L (7-40) Alkaline Phosphatase 75 U/L (46-116) Total Protein 6.5 g/dL (5.7-8.2) Albumin 4.0 g/dL (3.2-4.8) Urine Color Yellow (Yellow) Urine Clarity Clear (Clear) Urine pH 6.0 (5.0-9.0) Urine Specific [place] 1.022 (1.001-1.035) Urine Protein Negative (Negative) Urine Ketones 1+ (Negative) Urine Blood Negative /uL (Negative) Urine Nitrite Negative (Negative) Urine Bilirubin Negative (Negative) Urine Urobilinogen Normal mg/dL (Negative) Urine Leukocyte Esterase Negative /uL (Negative) Urine RBC <1 /hpf (0 - 3) Urine Microscopic WBC < 1 /HPF (0-3) Urine Squamous Epithelial Cells Few /hpf (<5) Urine Bacteria None seen /hpf (None Seen) Urine Mucus Few (None Seen) Urine Glucose Normal mg/dL (Normal) Lactic Acid Level 1.6 mmol/L (0.4-2.0) Blood Gas Specimen Type Arterial Blood Gas Sample Site Left radial Blood Gas Patient Temperature 37.0 Arterial Blood Date Drawn [id number] Arterial Blood pH 7.337 (7.350-7.450) Arterial Blood Partial Pressure CO2 67.0 mmHg (35.0-48.0) Arterial Blood Partial Pressure O2 75.5 mmHg (83.0-108.0) Arterial Blood HCO3 35.1 mmol/L (21.0-28.0) Arterial Blood Oxygen Saturation 95.0 % (94.0-98.0) Arterial Blood Base Excess 6.9 mmol/L (-2.0-3.0) Arterial Blood Oxyhemoglobin 93.0 % (94.0-98.0) Arterial Blood Carboxyhemoglobin 1.6 % (0.5-1.5) Arterial Blood Methemoglobin 0.5 % (0.0-1.5) Reji Test Yes Blood Gas Total Hemoglobin 13.80 g/dL (13.5-17.5) Blood Gas Set Respiration Rate 12.0 Blood Gas Modality Mask - bipap FiO2 % 35.0 Blood Gas EPAP 5 Blood Gas IPAP 12 Blood Gas Critical Value Read Back Yes Blood Gas Notified Whom Shani bowman. Blood Gas Notified Time [id number] Blood Gas Notified By Luna trinidad Other Laboratory Tests 02/15/25 05:17 Brief Hx & Hospital Course: see dictated note Condition at Discharge: Fair Final Diagnosis/Problems List copd Discharge Disposition: Acute Care Facility Discharge Instruct/Medications Diet: Cardiac 2g Na,low cholest Activity: No Restrictions, As Tolerated Follow Up/Referral: fu with hoang Medications: per oct Discharge Statement: "Patient was advised to return to the ER or call 911 if any headaches, dizziness, shortness of breath, chest pain, abdominal pain, bleeding, fevers, or worsening of medical condition. Patient was counseled about treatment plan, medications, possible side effects, patientverbalized understanding. All questions were answered to the best of my ability. This discharge took greater then 30 minutes in planning, reviewing documentation, counseling the patient, and discussing with other team members." ASSESSMENT ASSESSMENT Assessment copd Date of Service: Feb 16, 2025 Billing Provider: JOHN SMITH MD Common Visit Codes: 18250-BHG/OBS DISCH DAY >30min Secondary Visit Codes: 39397-XKMFJOUR CARE PLAN 30 MINUTES JOHN SMITH MD Feb 16, 2025 12:32
--- NOTE | 2025-02-16 12:44 | DVHDS ---
HISTORY OF PRESENT ILLNESS: The patient is a 65-year-old gentleman who is admitted with increasing shortness of breath and has history of COPD with chronic respiratory failure as well as atrial fibrillation. HOSPITAL COURSE: The patient was in acute respiratory failure with a CO2 of 67. The patient was placed on BiPAP. Chest x-ray showed possible infiltrate in the right lung base. The patient's blood cultures have so far been negative. The patient is now improved in his symptoms and will be transferred to [facility] for further management. FINAL DIAGNOSES: * COPD with exacerbation. * Acute on chronic respiratory failure. * Questionable right lower lobe pneumonia. * Obesity. * Atrial fibrillation with previous ablation. * The patient wishes to be a DNR at this time. Time spent in discharge planning and review of plan with the patient and nursing was 38 minutes. Advanced care planning time spent was 21 minutes. MD LESIA Driscoll/FAROOQ TID: [id number] RECEIPT: [id number]
== END 2025-02-16 19:02 | disposition short-term general hospital (02) | DRG 189 ==
LOC: EDBD 12:50 → ER 12:50 → OVERFLOW 17:08 → WEST WING 22:08 → TELE-WESTW 02-15 01:16
PROVIDERS: ADMIT Internal Medicine; ATTEND Internal Medicine
PROC: 5A09357 Assistance with Respiratory Ventilation, Less than 24 Consecutive Hours, Continuous Positive Airway Pressure (ICD-10-PCS; principal; 2025-02-14)
PROC: 5A09357 Assistance with Respiratory Ventilation, Less than 24 Consecutive Hours, Continuous Positive Airway Pressure (ICD-10-PCS; 2025-02-15)
DX: J96.21 Acute and chronic respiratory failure with hypoxia (principal); J15.69 Pneumonia due to other Gram-negative bacteria; J15.9 Unspecified bacterial pneumonia; J44.1 Chronic obstructive pulmonary disease with (acute) exacerbation; J44.0 Chronic obstructive pulmonary disease with (acute) lower respiratory infection; Z66 Do not resuscitate; I48.91 Unspecified atrial fibrillation; E66.9 Obesity, unspecified; Z79.899 Other long term (current) drug therapy; Z68.35 Body mass index [BMI] 35.0-35.9, adult
CPT/HCPCS: 36415; 36600; 71045; 80048; 80053; 81001; 82805; 83605; 85025; 87040; 87081; 93005; 94640; 94660; 96365; 96375; 99291; G0378; J2405

== ENCOUNTER 2025-02-28 15:37 | Inpatient (IN) | payer OTHER ==
[~2025-02-28] VITALS: Ht 185.4 cm; Wt 119.9 kg
[2025-02-28] VITALS (7 sets, daily range): BP systolic 112–141; BP diastolic 54–59; PULSE 83–96; RESP 15–20; TEMP 97.7–98.1; O2SAT 59–97
--- NOTE | 2025-02-28 15:44 | ED.PDOC ---
History of Present Illness HPI Comments 65-year-old male brought by paramedics from home because of shortness a breath. He was going to the bathroom and hour ago when he he started to have shortness a breath. He is currently on home oxygen on 2 L. paramedics noticed the oxygen saturation to be 80 %. He was placed on 10 L which bumped up to 90%. Paramedics brought him to the ER on CPAP. History of COPD. Denies any other symptoms. Time Seen by MD: 15:39 Reviewed Notes: Nurses Notes, Medications, Allergies Allergies: Coded Allergies: NO KNOWN ALLERGIES (Unverified , 12/01/21) Home Meds Active Scripts Doxycycline Monohydrate (Doxycycline Monohydrate) 100 Mg Cap, 1 CAP PO BID for 7 Days, #14 CAP Prov:DECLAN BALLESTEROS MD 12/03/21 Prednisone (Prednisone) 20 Mg Tab, 20 MG PO DAILY for 7 Days, #7 MG Prov:DECLAN BALLESTEROS MD 12/03/21 Reported Medications Sertraline Hcl (Sertraline Hcl) 50 Mg Tab, 50 MG PO DAILY for 30 Days, MG 12/02/21 Bisoprolol Fumarate (Bisoprolol Fumarate) 5 Mg Tab, 0.5 TAB PO Q2HR, #30 TAB 5 Refills 12/02/21 Hydrocodone-Acetaminophen (Hydrocodone Bitartrate/AC 10-325 mg) 1 Tab Tab, 2 TAB PO Q6HPRN PRN for PAIN SCALE 7 THRU 10, TAB 12/02/21 Hydrocodone-Acetaminophen (Hydrocodone Bitartrate/AC 10-325 mg) 1 Tab Tab, 1 TAB PO Q4HPRN PRN for PAIN SCALE 1 THRU 6, TAB 12/02/21 Ciprofloxacin Hcl (Ciprofloxacin Hcl) 500 Mg Tab, 500 MG PO Q12HR, MG 12/02/21 Enoxaparin Sodium (Lovenox) 40 Mg/0.4 Ml Ij, 0.4 ML SUBCUT DAILY, #10 SYR 12/02/21 Ergocalciferol (VITAMIN D 11687 UNIT) 50,000 [place], [address] UNIT PO QWEEKLY, CAP 12/02/21 Information Source: Patient, Emergency Med Personnel Mode of Arrival: EMS Severity: Moderate Timing: Hours Duration: Since onset Past Medical History PAST MEDICAL HISTORY: AFIB, COPD Surgical History: Denies all surgeries Family History Family History: Reviewed,noncontributory to illness Social History Smoker: Non-Smoker Alcohol: Denies ETOH Use Drugs: Denies Drug Use Lives In: Home Constitutional: denies: chills, diaphoresis, fatigue, fever, malaise, sweats, weakness, others EENTM: denies: blurred vision, double vision, ear bleeding, ear discharge, ear drainage, ear pain, ear ringing, eye pain, eye redness, hearing loss, mouth pain, mouth swelling, nasal discharge, nose bleeding, nose congestion, nose pain, photophobia, tearing, throat pain, throat swelling, voice changes, others Respiratory: reports: shortness of breath; denies: cough, hemoptysis, orthopnea, SOB at rest, SOB with excertion, stridor, wheezing, others Cardiovascular: denies: chest pain, dizzy spells, diaphoresis, Dyspnea on exertion, edema, irregular heart beat, left arm pain, lightheadedness, palpitations, PND, syncope, others Gastrointestinal: denies: abdomen distended, abdominal pain, blood streaked bowels, constipated, diarrhea, dysphagia, difficulty swallowing, hematemesis, melena, nausea, poor appetite, poor fluid intake, rectal bleeding, rectal pain, vomiting, others Genitourinary: denies: burning, dysuria, flank pain, frequency, hematuria, incontinence, penile discharge, penile sore, pain, testicle pain, testicle swelling, urgency, others Neurological: denies: dizziness, fainting, headache, left sided numbness, left sided weakness, numbness, paresthesia, pre-existing deficit, right sided numbness, right sided weakness, seizure, speech problems, tingling, tremors, weakness, others Musculoskeletal: denies: back pain, gout, joint pain, joint swelling, muscle pa in, muscle stiffness, neck pain, others Integumetry: denies: bruises, change in color, change in hair/nails, dryness, laceration, lesions, lumps, rash, wounds, others Allergic/Immunocompromised: denies: Difficulty Healing, Frequent Infections, Hives, Itching, others Hematologic/Lymphatic: denies: anemia, blood clots, easy bleeding, easy bruising, swollen glands, others Endocrine: denies: excessive hunger, excessive sweating, excessive thirst, excessive urination, flushing, intolerance to cold, intolerance to heat, unexplained weight gain, unexplained weight loss, others Psychiatric: denies: anxiety, bipolar disorder, depression, hopeless, panic disorder, schizophrenia, sleepless, suicidal, others Physical Exam General Appearance: Moderate Distress HEENT: Normal ENT Inspection, Pharynx Normal, TMs Normal Neck: Full Range of Motion, Non-Tender, Normal, Normal Inspection Respiratory: Accessory Muscle Use, Respiratory Distress Cardiovascular: No Edema, No JVD, No Murmur, No Gallop, Normal Peripheral Pulses, Tachycardia Breast Exam: Deferred Gastrointestinal: No Organomegaly, Non Tender, No Pulsatile Mass, Normal Bowel Sounds, Soft Genitalia: Deferred Pelvic: Deferred Rectal: Deferred Extremities: No calf tenderness, No pedal edema Musculoskeletal : Apperance: Normal Neurologic: Alert, No Motor Deficits, No Sensory Deficits Cerebellar Function: NOT DONE Reflexes: NOT DONE Skin: Normal Color Peripheral Pulses: 3+ Radial (R), 3+ Radial (L) Lymphatic: No Adenopathy Was a procedure done? Was a procedure done?: No EKG EKG : Pulse Rate (adult): 104 Cardiac Rhythm: NSR Differential Dx Considerations may include: COPD Pneumonia X-Ray, Labs, Meds, VS Vital Signs Date Time Temp Pulse Resp B/P (MAP) Pulse Ox O2 Delivery O2 Flow Rate FiO2 02/28/25 16:00 99 02/28/25 15:49 99.7 110 20 118/72 (87) 95 99.7 02/28/25 15:45 102 109/78 Nasal BiPAP Mask 40 02/28/25 15:44 104 Current Medications Medications (Trade) Dose Ordered Sig/Gagan Route Start Time Stop Time Status Last Admin Methylprednisolone Sodium Succinate (Solu Medrol) 125 mg ONCE ONCE IV 02/28/25 15:45 02/28/25 15:46 DC 02/28/25 15:59 Magnesium Sulfate/ Dextrose 100 ml @ 100 mls/hr ONCE ONCE IV 02/28/25 15:45 02/28/25 16:44 02/28/25 15:59 Sodium Chloride 1,000 ml @ 2,000 mls/hr Q30M ONCE IV 02/28/25 15:45 02/28/25 16:14 02/28/25 15:59 Patient alert. Complaining of shortness a breath. Came in on CPAP. Using accessory muscles. Placed on BiPAP. Establish intravenous access. Was given steroid. Was given Rocephin. Was given azithromycin. Reviewed his previous visit. Explained to the patient. Continue monitoring. [facility] approved inpatient admission [id number]. Time of 1ST Reevaluation: 15:41 Reevaluation 1ST: Unchanged Patient Education/Counseling: Diagnosis, Treatment, Prognosis Family Education/Counseling: No Family Present SEPSIS Sepsis Screen Physician Orders BIPAP (02/28/25 15:43) Abg W/ Co-Ox (02/28/25 16:30) Blood Culture (02/28/25 15:44) Lactic Acid W/ Reflex Order (02/28/25 15:44) Ceftriaxone 1gm/50ml D5w (Rocephin) (02/28/25 15:45) Azithromycin 500mg/ 250ml (Zithromax 50 (02/28/25 15:45) Magnesium Sulfate 1gm/100ml (02/28/25 15:45) Troponin-I Hs (02/28/25 15:44) Complete Blood Count (02/28/25 15:44) Comprehensive Metabolic Panel (02/28/25 15:44) Chest Portable (02/28/25 15:44) Urinalysis (02/28/25 15:44) Sodium Chloride 0.9% (02/28/25 15:45) Sodium Chloride 0.9% (02/28/25 15:45) Troponin-I Hs (02/28/25 16:44) Troponin-I Hs (02/28/25 18:44) Vital Signs Date Time Temp Pulse Resp B/P (MAP) Pulse Ox O2 Delivery O2 Flow Rate FiO2 02/28/25 16:00 99 02/28/25 15:49 99.7 110 20 118/72 (87) 95 99.7 02/28/25 15:45 102 109/78 Nasal BiPAP Mask 40 02/28/25 15:44 104 Medications Medications Dose Ordered Sig/Gagan Route Start Time Stop Time Status Last Admin Dose Admin Magnesium Sulfate/ Dextrose 100 ml @ 100 mls/hr ONCE ONCE IV 02/28/25 15:45 02/28/25 16:44 02/28/25 15:59 Methylprednisolone Sodium Succinate 125 mg ONCE ONCE IV 02/28/25 15:45 02/28/25 15:46 DC 02/28/25 15:59 Sodium Chloride 1,000 ml @ 2,000 mls/hr Q30M ONCE IV 02/28/25 15:45 02/28/25 16:14 02/28/25 15:59 Departure 1 Departure Time of Disposition: 15:43 Impression: Primary Impression: Acute respiratory failure with hypoxia Additional Impression: COPD with acute exacerbation Disposition: ADMITTED INPATIENT Admit to: Med Surg Condition: Guarded Critical Care Note Critical Care Time?: Yes (90 min-critical care time only) Critical care comment: Continue monitoring Stability Stability form required: No Heart Score Heart Score: Heart Score Response (Comments) Value History Slightly Suspicious 0 EKG Normal 0 Age >65 2 Risk Factors >3 or Hx ASHD 2 Troponin Normal limit 0 Total 4 RANULFO DELGADO MD Feb 28, 2025 15:44
[2025-02-28] MEDS: SODIUM CHLORIDE 0.9% 1,000 ML IV ONE ×2 (15:59→18:13)
[2025-02-28] MEDS: MAGNESIUM SULFATE 1GM/100ML 100 ML IV ONE (15:59)
[2025-02-28] MEDS: methylPREDNISolone SOD SUCC 125 MG/2 ML VL IV ONE (15:59)
--- NOTE | 2025-02-28 16:11 | ECG ---
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
[2025-02-28 16:16] LABS: Hematocrit 38.8 % (41.0-53.0); Hemoglobin 12.5 g/dL (13.5-17.5); Mean Corpuscular Hemoglobin 28.7 pg (28.0-32.0); Mean Corpuscular Volume 89.3 fL (80.0-100.0); Nucleated Red Blood Cells % 0.0 %
[2025-02-28] MEDS: cefTRIAXone 1GM/50ML D5W 50 ML IV ONE ×2 (16:16→22:43)
[2025-02-28] MEDS: IPRATROPIUM BROM 0.5 MG/2.5ML INH SOL NEB ONE ×3 (16:20→23:05)
[2025-02-28] MEDS: IPRATROPIUM BROM 0.5 MG/2.5ML INH SOL ONE (16:20)
[2025-02-28] MEDS: ALBUTEROL SULF 2.5 MG/0.5ML(0.5%) NEB SOLN NEB ONE ×2 (16:20→23:35)
[2025-02-28] MEDS: ALBUTEROL SULF 2.5 MG/0.5ML(0.5%) NEB SOLN ONE (16:21)
--- NOTE | 2025-02-28 16:23 | DVH ---
EXAM: XY CHEST PORTABLE TECHNIQUE: Single frontal chest radiograph CLINICAL HISTORY: sob COMPARISON: XY CHEST PORTABLE on DOS: 02/14/25, CHEST PORTABLE on DOS: 12/01/21, CXRP on DOS: 12/01/21 Findings/Impression: Frontal chest radiograph demonstrates no acute osseous or superficial soft tissue abnormalities. The trachea is midline. The cardiac silhouette and mediastinum are within normal limits. Bibasilar atelectasis. No pneumothorax, pleural effusions, or consolidations.
[2025-02-28 16:34] LABS: Alanine Aminotransferase 17 U/L (7-40); Albumin 4.1 g/dL (3.2-4.8); Alkaline Phosphatase 70 U/L (46-116); Anion Gap 6 (5-15); BUN/Creatinine Ratio 12.0 (10.0-20.0); Blood Urea Nitrogen 11 mg/dL (9-23); Calcium 9.8 mg/dL (8.7-10.4); Chloride 99 mmol/L (98-107); Potassium 4.4 mmol/L (3.5-5.1); Sodium 143 mmol/L (136-145); Total Protein 6.3 g/dL (5.7-8.2)
[2025-02-28 16:35] LABS: Bilirubin, Total 0.3 mg/dL (0.2-1.0); Carbon Dioxide 38 mmol/L (20-31); Glucose 125 mg/dL (74-106)
[2025-02-28 16:44] LABS: Base Excess 9.6 mmol/L (-2.0-3.0)
[2025-02-28] MEDS: AZITHROMYCIN 500MG/ 250ML 250 ML IV ONE ×2 (16:50→23:33)
[2025-02-28] MEDS: ACETAMINOPHEN 325 MG TAB PO ONE (19:23)
[2025-02-28] MEDS: HYDROcodone-ACET 10/325MG TAB PO ONE (20:46)
[2025-02-28] MEDS ORDERED: AZIT-43 PO (21:27)
[2025-02-28] MEDS ORDERED: TIOT17SP INH (21:27)
[2025-02-28] MEDS ORDERED: ALBU108A5 INH (21:27)
[2025-02-28] MEDS ORDERED: AMIO200T13 PO (21:27)
[2025-02-28] MEDS ORDERED: SERT-160 PO (21:27)
[2025-02-28] MEDS ORDERED: ACETAMINOPHEN 325 MG TAB PO PRN ×2 (22:15→22:30)
[2025-02-28] MEDS ORDERED: NITROGLYCERIN 0.4 MG SL TAB SL PRN ×2 (22:15→22:30)
--- NOTE | 2025-02-28 22:15 | DVHHP2 ---
History of Present Illness History of Present Illness Patient is 65 years old male with a past medical history of atrial fibrillation, status post cardiac ablation 10 years before, COPD on home oxygen [place] O2 2 L/min, history of right kidney neoplasm, status post right nephrectomy 17 years before came with a complaint of shortness of breaths. patient came to the ER with a complaint of shortness of breaths that started today in the morning. patient started feeling short of breath after waking up in the morning which was getting worse throughout the day. Patient reported he was desaturating to 68% at home. Patient also endorsed some palpitation with the shortness of breaths. Patient was recently discharged from [facility] for acute hypoxic respiratory failure. Patient denied any chest pain, cough, fever, diarrhea, acute joint redness or swelling, dysarthria or change in vision. Initial lab workup revealed leukocytosis WBC 13.5, hemoglobin 12.5, neutrophils 83.7, troponin I negative, lactic acid 0.9. CXR-bilateral atelectasis. ABG revealed pH 7.36, pCO2 66.6, PO2 81.2, bicarbonate 37.2 Past Medical History atrial fibrillation, status post cardiac ablation 10 years before, COPD on home oxygen [place] O2 2 L/min, history of right kidney neoplasm, status post right nephrectomy 17 years before Past Surgical History Right ankle surgery after he had a fall, status post right nephrectomy 17 years before Family History None Past Social History Smokes 2 pack per day for last 25 years, ex alcoholic, denies any drug abuse, lives with Review of Systems Review of Systems Allergy- NKDA Patient was seen today at the bedside. Cardiovascular- deny acute chest pain OR cough or palpitation Gastrointestinal- denies any rectal bleeding, nausea or vomiting Musculoskeletal-denies acute joint swelling or tenderness or redness Neurological- denies acute dysarthria, dysphagia, change in vision Psychiatry- denies depression or SI or HI Skin- denies acute rash or purpura Allergies: Coded Allergies: NO KNOWN ALLERGIES (Unverified , 12/01/21) Exam Vital Signs Vital Signs Date Time Temp Pulse Resp B/P (MAP) Pulse Ox O2 Delivery O2 Flow Rate FiO2 02/28/25 21:00 86 11 112/54 (73) 87 02/28/25 19:30 Nasal Cannula* 6 44 02/28/25 19:30 98.1 98.1 Exam General examination-awake, alert, oriented HEENT- PEERLA, no acute nasal discharge Cardiovascular- S1-S2 audible, rate and rhythm regular, no murmur Respiratory- + bilateral lung crackles+ Gastrointestinal-nontender, bowel sound+. Nondistended Musculoskeletal-no acute joint swelling or tenderness or redness Lower extremity- no leg edema Neurological- cranial nerves intact, no acute dysarthria or dysphagia Psychiatry- denies depression or SI or HI Skin- no acute rash or purpura Labs/Xrays Labs Test 02/28/25 19:04 02/28/25 19:01 02/28/25 16:38 02/28/25 15:59 Range/Units Troponin I High Sensitivity 11 </=54 ng/L Blood Gas Specimen Type Arterial Blood Gas Sample Site Right radial Blood Gas Patient Temperature 37.0 Arterial Blood Date Drawn [id number] Arterial Blood pH 7.365 7.350-7.450 Arterial Blood Partial Pressure CO2 66.5 *H 35.0-48.0 mmHg Arterial Blood Partial Pressure O2 81.2 L 83.0-108.0 mmHg Arterial Blood HCO3 37.2 H 21.0-28.0 mmol/L Arterial Blood Oxygen Saturation 96.2 94.0-98.0 % Arterial Blood Base Excess 9.6 H -2.0-3.0 mmol/L Arterial Blood Oxyhemoglobin 94.7 94.0-98.0 % Arterial Blood Carboxyhemoglobin 1.4 0.5-1.5 % Arterial Blood Methemoglobin 0.2 0.0-1.5 % Reji Test Yes Blood Gas Total Hemoglobin 11.90 L 13.5-17.5 g/dL Blood Gas Set Respiration Rate 12.0 Blood Gas Modality Mask - bipap Blood Gas Spontaneous Rate 25 FiO2 % 40.0 Blood Gas EPAP 5 Blood Gas IPAP 12 Blood Gas Critical Value Read Back yes Blood Gas Notified Whom Blood Gas Notified Time [id number] Blood Gas Notified By cigarette vendor norberto White Blood Count 13.5 H 4.4-10.8 10^3/uL Red Blood Count 4.35 L 4.5-5.90 10^6/uL Hemoglobin 12.5 L 13.5-17.5 g/dL Hematocrit 38.8 L 41.0-53.0 % Mean Corpuscular Volume 89.3 80.0-100.0 fL Mean Corpuscular Hemoglobin 28.7 28.0-32.0 pg Mean Corpuscular Hemoglobin Concent 32.2 32.0-36.0 g/dL Red Cell Distribution Width 14.0 11.8-14.3 % Platelet Count 206 140-450 10^3/uL Mean Platelet Volume 8.9 6.9-10.8 fL Neutrophils (%) (Auto) 83.7 H 37.0-80.0 % Lymphocytes (%) (Auto) 7.9 L 10.0-50.0 % Monocytes (%) (Auto) 7.1 0.0-12.0 % Eosinophils (%) (Auto) 0.8 0.0-7.0 % Basophils (%) (Auto) 0.5 0.0-2.0 % Neutrophils # (Auto) 11.3 H 1.6-8.6 10 ^3/uL Lymphocytes # (Auto) 1.1 0.4-5.4 10 ^3/uL Monocytes # (Auto) 1.0 0-1.3 10 ^3/uL Eosinophils # (Auto) 0.1 0-0.8 10 ^3/uL Basophils # (Auto) 0.1 0-0.2 10 ^3/uL Nucleated Red Blood Cells 0.0 % Sodium Level 143 136-145 mmol/L Potassium Level 4.4 3.5-5.1 mmol/L Chloride Level 99 98-107 mmol/L Carbon Dioxide Level 38 H 20-31 mmol/L Anion Gap 6 5-15 Blood Urea Nitrogen 11 9-23 mg/dL Creatinine 0.92 0.700-1.30 mg/dL Glomerular Filtration Rate Calc 92 >90 mL/min BUN/Creatinine Ratio 12.0 10.0-20.0 Serum Glucose 125 H 74-106 mg/dL Lactic Acid Level 0.9 0.4-2.0 mmol/L Calcium Level 9.8 8.7-10.4 mg/dL Total Bilirubin 0.3 0.2-1.0 mg/dL Aspartate Amino Transferase (AST) 17 13-40 U/L Alanine Aminotransferase (ALT) 17 7-40 U/L Alkaline Phosphatase 70 46-116 U/L Total Protein 6.3 5.7-8.2 g/dL Albumin 4.1 3.2-4.8 g/dL Assessment/Plan Assessment/Plan Assessment and plan # acute on chronic hypercapnic respiratory failure -ABG revealed pH 7.36, pCO2 66.6, PO2 81.2, bicarbonate 37.2 -CXR bilateral atelectasis -CXR no acute cardiopulmonary abnormality noted -continue nebulization with albuterol and ipratropium bromide as prescribed -status post CPAP ---ordered ceftriaxone 1 g IV daily -ordered azithromycin 500 mg IV daily -methylprednisolone 40 mg IV b.i.d. # pneumonia, Gram-positive versus Gram-negative -CXR bilateral atelectasis --ordered ceftriaxone 1 g IV daily -ordered azithromycin 500 mg IV daily -incentive spirometry -pending sputum culture, blood culture # atrial fibrillation, status post cardiac ablation -continue amiodarone 200 mg p.o. daily -atenolol 25 mg p.o. daily -resume home medication Pradaxa # COPD, acute exacerbation --continue nebulization with albuterol and ipratropium bromide as prescribed -status post CPAP -methylprednisolone 40 mg IV b.i.d. -ceftriaxone 1 g IV daily -azithromycin 500 mg IV daily -incentive spirometry # history of right renal carcinoma status post nephrectomy -follow up outpatient with the primary care physician # obesity -patient is counseled about the effect of obesity on health, weight reduction, healthy diet, physical activity Patient wished to be DNR, only aggressive medical management until, ok with BiPAP/CPAP Goals of care, Code status DNR ; discussed with >15 minutes PUD prophylaxis: Pantoprazole DVT prophylaxis: Pradaxa Plan discussed with Dr. Woo , nursing staff, Total time spent on patient evaluation, chart review, assessment and plan, discussion discussion >35 minutes Plan discussed with: Patient, Other (RN) My Orders Orders - HEBER CALLAHAN RESIDENT Procedure Category Date Status Time Admit ADMIT 02/28/25 Transmitted 22:08 Code Status CODE 02/28/25 Transmitted 22:08 Complete Blood Count LAB 03/01/25 Verified 04:00 Comprehensive LAB 03/01/25 Verified Metabolic Panel 04:00 Echo 2d Mode Cardiac US 02/28/25 Logged DOP 22:08 Oxygen By Nasal RT 02/28/25 Transmitted Cannula 22:08 D-Dimer LAB 02/28/25 In Process 22:08 Date of Service: Feb 28, 2025 Billing Provider: TAYO WOO MD Common Visit Codes: 81032-GVVPIPL INP/OBS CARE (HIGH) Secondary Visit Codes: 91688-[id number] CARE PLAN 30 MINUTES HEBER CALLAHAN RESIDENT Feb 28, 2025 22:15
[2025-02-28] MEDS: PANTOPRAZOLE 40 MG TAB PO ONE (22:42)
[2025-02-28] MEDS: methylPREDNISolone SOD SUCC 40 MG/ML VL IV ONE (22:42)
[2025-03-01] VITALS (17 sets, daily range): BP systolic 109–134; BP diastolic 72–87; PULSE 58–96; RESP 12–22; TEMP 97.7–99; O2SAT 83–99
[2025-03-01 02:35] LABS: Base Excess 8.2 mmol/L (-2.0-3.0)
[2025-03-01] MEDS: HYDROcodone-ACET 10/325MG TAB PO PRN ×2 (03:58→16:46)
[2025-03-01] MEDS: ALBUTEROL SULF 2.5 MG/0.5ML(0.5%) NEB SOLN NEB SCH (05:53)
[2025-03-01] MEDS: IPRATROPIUM BROM 0.5 MG/2.5ML INH SOL NEB SCH (05:53)
[2025-03-01] MEDS ORDERED: IPRATROPIUM BROM 0.5 MG/2.5ML INH SOL NEB SCH (06:00)
[2025-03-01] MEDS: PANTOPRAZOLE 40 MG TAB PO SCH (06:06)
[2025-03-01 06:56] LABS: Alanine Aminotransferase 17 U/L (7-40); Albumin 4.2 g/dL (3.2-4.8); Alkaline Phosphatase 67 U/L (46-116); Anion Gap 5 (5-15); BUN/Creatinine Ratio 14.8 (10.0-20.0); Blood Urea Nitrogen 12 mg/dL (9-23); Calcium 9.0 mg/dL (8.7-10.4); Chloride 99 mmol/L (98-107); Magnesium 2.2 mg/dL (1.6-2.6); Potassium 4.7 mmol/L (3.5-5.1); Sodium 140 mmol/L (136-145); Total Protein 6.5 g/dL (5.7-8.2)
[2025-03-01 06:57] LABS: Bilirubin, Total 0.3 mg/dL (0.2-1.0); Carbon Dioxide 36 mmol/L (20-31); Glucose 140 mg/dL (74-106)
[2025-03-01 07:03] LABS: Hematocrit 37.4 % (41.0-53.0); Hemoglobin 12.0 g/dL (13.5-17.5); Mean Corpuscular Hemoglobin 28.7 pg (28.0-32.0); Mean Corpuscular Volume 89.3 fL (80.0-100.0); Nucleated Red Blood Cells % 0.0 %
[2025-03-01 09:47] LABS: Urine Protein, UAD Negative (Negative)
[2025-03-01] MEDS ORDERED: ENOXAPARIN SOD 40 MG/0.4 ML SYRINGE SC SCH (10:00)
[2025-03-01] MEDS: AMIODARONE HCL 200 MG TAB PO SCH (10:08)
[2025-03-01] MEDS: methylPREDNISolone SOD SUCC 40 MG/ML VL IV SCH (10:10)
[2025-03-01] MEDS: ATENOLOL 25 MG TAB PO SCH (10:10)
[2025-03-01] MEDS: ENOXAPARIN SOD 40 MG/0.4 ML SYRINGE SC SCH (10:12)
[2025-03-01] MEDS ORDERED: SERT100T PO (12:41)
[2025-03-01] MEDS ORDERED: BISO5TAB44 PO (12:44)
--- NOTE | 2025-03-01 13:01 | DVHSR ---
APPROVED REPORT EXAM: LIMITED Two-dimensional and M-mode echocardiogram with Doppler and color Doppler. Blood Pressure: 118/72 mmHg INDICATION Rule out heart failure RISK FACTORS Height: 71, Weight: 247 DIMENSIONS LVDd4.8 (3.8-5.7cm)LA (2D)4.3 (1.9-4.0cm)Aortic Root4.3 (2.0-3.7cm) LVDs2.9 (2.5-4.0cm)LA (MM) (1.9-4.0cm)Aortic Cusp Exc2.2 (1.5-2.0cm) EF (%) 71.0 (55-70%)Rt. Atrium4.4 (1.9-4.0cm)Asc. Aorta cm IVSd1.3 (0.7-1.1cm)RV (D) (1.8-2.4cm) PWd1.7 (0.7-1.1cm) Mitral Valve MitralMitral Stenosis E/A ratio0.02D MVAcm2 Aortic Valve Aortic ValveAortic Stenosis LVOT Diameter1.9 (1.8-2.4cm)Doppler AVAcm2 Tricuspid Valve TR Velocity2.60m/s [id number] Other Information Technically limited study due to body habitus and patient position. Patient sitting straight up duri ng exam. Conclusion lvef 65% mild LVH grade 1 diastolic dysfunction normal rv function left atrium enlarged mild no severe valve abnormalities noted pericardial fat pad noted
--- NOTE | 2025-03-01 15:40 | MEDREC ---
[facility] ASP Intervention Section I [facility] ASP Intervention: Review courses of therapy (DUE TO PROLONG QTc > 500 PLEASE CONSIDER SWITCHING AZITHROMYCIN TO DOXYCYCLINE ) VIKY CISNEROS PHARMACIST Mar 01, 2025 15:40
[2025-03-01] MEDS: SERTRALINE HCL 50 MG TAB PO ONE (16:00)
--- NOTE | 2025-03-01 19:19 | DVHPN2 ---
Subjective 65-year-old male with a known history of chronic respiratory failure on home O2, COPD, morbid obesity class I,, hypertension, chronic insomnia, anxiety disorder initiation with the hospital with increasing shortness a breath found to have acute COPD exacerbation. Patient is still complaining of shortness of breath. Changes from previous H/P or p: No Changes Objective Vitals Vital Signs Date Time Temp Pulse Resp B/P (MAP) Pulse Ox O2 Delivery O2 Flow Rate FiO2 03/01/25 18:42 82 20 99 03/01/25 18:36 Nasal Cannula 5.0 03/01/25 18:36 40 03/01/25 17:00 98.7 134/74 (94) 98.7 Intake/Output Intake and Output 03/01/25 07:00 Intake Total 3350 ml Output Total 400 ml Balance 2950 ml Intake Oral 800 ml IV Total 2550 ml Output Urine Total 400 ml Exam HEENT pupils are reactive Neck is supple CV is S1-S2 regular rate and rhythm Respiratory diminished breath sound bilateral lung bases GI positive bowel sound Extremity no edema [employer] no motor deficit Medications Current Medications Medications Dose Ordered Sig/Gagan Route Start Time Stop Time Status Last Admin Dose Admin Enoxaparin Sodium 40 mg DAILY SC 03/01/25 10:00 03/01/25 10:12 40 MG Acetaminophen 650 mg Q6HP PRN PO 02/28/25 22:30 Nitroglycerin 0.4 mg Q5MINP PRN SL 02/28/25 22:30 Ipratropium [place] 0.5 mg Q4HWA NEB 03/01/25 06:00 03/01/25 18:36 0.5 MG Ceftriaxone Sodium 50 ml @ 100 mls/hr Q24H IV 03/01/25 20:00 Azithromycin 250 ml @ 125 mls/hr Q24H IV 03/01/25 21:00 Amiodarone HCl 200 mg DAILY PO 03/01/25 10:00 03/01/25 10:08 200 MG Ergocalciferol 50,000 unit QWEEKLY PO 03/01/25 11:08 Methylprednisolone Sodium Succinate 40 mg BID IV 03/01/25 10:00 03/01/25 10:10 40 MG Pantoprazole Sodium 40 mg DAILY@0600 PO 03/01/25 06:00 03/01/25 06:06 40 MG Albuterol 2.5 mg Q4HWA NEB 03/01/25 06:00 03/01/25 18:36 2.5 MG Patient Own Medication 5 BID PO 03/01/25 22:00 Dabigatran 150 mg BID PO 03/01/25 22:00 Acetaminophen/ Hydrocodone Bitart 1 tab Q4HP PRN PO 03/01/25 16:00 03/01/25 16:46 1 TAB Laboratory Results Laboratory Tests 03/01/25 05:40 Chemistry Test 03/01/25 05:40 Albumin 4.2 g/dL (3.2-4.8) Calcium Level 9.0 mg/dL (8.7-10.4) Magnesium Level 2.2 mg/dL (1.6-2.6) Total Protein 6.5 g/dL (5.7-8.2) Cardiac Markers Test 03/01/25 05:40 B-Type Natriuretic Peptide 67.20 pg/mL (0-100) LFT Test 03/01/25 05:40 Alanine Aminotransferase (ALT) 17 U/L (7-40) Alkaline Phosphatase 67 U/L (46-116) Aspartate Amino Transferase (AST) 17 U/L (13-40) Total Bilirubin 0.3 mg/dL (0.2-1.0) Urinalysis Test 03/01/25 09:41 Urine Color Light-yellow (Yellow) Urine Clarity Clear (Clear) Urine pH 6.5 (5.0-9.0) Urine Specific [place] 1.020 (1.001-1.035) Urine Protein Negative (Negative) Urine Ketones 1+ (Negative) H Urine Blood Negative /uL (Negative) Urine Nitrite Negative (Negative) Urine Bilirubin Negative (Negative) Urine Urobilinogen Normal mg/dL (Negative) Urine Leukocyte Esterase Negative /uL (Negative) Urine RBC <1 /hpf (0 - 3) Urine Microscopic WBC < 1 /HPF (0-3) Urine Squamous Epithelial Cells None seen /hpf (<5) Urine Bacteria None seen /hpf (None Seen) Urine Glucose Normal mg/dL (Normal) Blood Gas Results Test 03/01/25 02:30 Arterial Blood pH 7.388 (7.350-7.450) FiO2 % 44.0 Microbiology Microbiology Date/Time Source Procedure Growth Status 02/28/25 15:59 Blood Blood Culture - Preliminary NO GROWTH AFTER 24 HOURS OF INCUBATION. Resulted Assessment/Plan Assessment/Plan 65-year-old male with a known history of chronic respiratory failure on home O2, COPD, chronic AFib currently on Pradaxa, morbid obesity class I,, hypertension, chronic insomnia, anxiety disorder initiation with the hospital with increasing shortness a breath found to have 1. Acute on chronic hypoxic respiratory failure secondary to acute COPD exacerbation 2. Acute COPD exacerbation 3. Chronic AFib currently on Pradax 4. Hypertension 5. Anxiety disorder 6. Chronic insomnia 7. Morbid obesity classI -O2 supplementation, med nebs resume home medications PT evaluation and treatment Plan discussed with: Patient, Other My Orders Orders - MARCI SANABRIA MD Procedure Category Date Status Time Melatonin (Melatonin) PHA 03/01/25 In Process 22:00 Patients Own PHA 03/01/25 In Process Medication 22:00 Hydrocodone-Acet PHA 03/01/25 In Process 10/325mg Tab ([place] 16:00 Dabigatran Capsule PHA 03/01/25 In Process (Pradaxa Capsule) 22:00 Date of Service: Mar 01, 2025 Billing Provider: MARCI SANABRIA MD Common Visit Codes: [id number] INP/OBS CARE(MOD) MARCI SANABRIA MD Mar 01, 2025 19:19
[2025-03-01] MEDS: cefTRIAXone 1GM/50ML D5W 50 ML IV SCH (20:09)
[2025-03-01] MEDS ORDERED: MELATONIN 5 MG TAB PO ONE (22:00)
[2025-03-01] MEDS: MELATONIN 5 MG TAB PO ONE (22:18)
[2025-03-01] MEDS: DABIGATRAN 75 MG CAP PO SCH (22:19)
[2025-03-01] MEDS: AZITHROMYCIN 500MG/ 250ML 250 ML IV SCH (22:19)
[2025-03-01] MEDS: BISOPROLOL 5 MG PO SCH (22:19)
[2025-03-02] VITALS (18 sets, daily range): BP systolic 109–131; BP diastolic 61–86; PULSE 56–96; RESP 16–20; TEMP 97.8–99.4; O2SAT 10–100
[2025-03-02] MEDS: ERGOCALCIFEROL 50,000 UNIT(1.25MG) CAP PO SCH (06:07)
--- NOTE | 2025-03-02 19:22 | DVHPN2 ---
Subjective 65-year-old male with a known history of chronic respiratory failure on home O2, COPD, morbid obesity class I,, hypertension, chronic insomnia, anxiety disorder initiation with the hospital with increasing shortness a breath found to have acute COPD exacerbation. Patient is still complaining of shortness of breath. Changes from previous H/P or p: No Changes Objective Vitals Vital Signs Date Time Temp Pulse Resp B/P (MAP) Pulse Ox O2 Delivery O2 Flow Rate FiO2 03/02/25 17:00 97.9 80 18 118/74 (89) 96 97.9 03/02/25 10:30 Nasal Cannula 5.0 03/02/25 10:30 40 Intake/Output Intake and Output 03/02/25 07:00 Intake Total 1950 ml Balance 1950 ml Intake Oral 1650 ml IV Total 300 ml # Voids 9 # Bowel Movements 1 Exam HEENT pupils are reactive Neck is supple CV is S1-S2 regular rate and rhythm Respiratory diminished breath sound bilateral lung bases GI positive bowel sound Extremity no edema [employer] no motor deficit Medications Current Medications Medications Dose Ordered Sig/Gagan Route Start Time Stop Time Status Last Admin Dose Admin Enoxaparin Sodium 40 mg DAILY SC 03/01/25 10:00 03/02/25 11:59 40 MG Acetaminophen 650 mg Q6HP PRN PO 02/28/25 22:30 Nitroglycerin 0.4 mg Q5MINP PRN SL 02/28/25 22:30 Ipratropium [place] 0.5 mg Q4HWA [facility] 03/01/25 06:00 03/02/25 14:36 0.5 MG Ceftriaxone Sodium 50 ml @ 100 mls/hr Q24H IV 03/01/25 20:00 03/01/25 20:09 100 MLS/HR Azithromycin 250 ml @ 125 mls/hr Q24H IV 03/01/25 21:00 03/01/25 22:19 125 MLS/HR Amiodarone HCl 200 mg DAILY PO 03/01/25 10:00 03/02/25 12:14 200 MG Ergocalciferol 50,000 unit QWEEKLY PO 03/01/25 11:08 03/02/25 06:07 50,000 UNIT Pantoprazole Sodium 40 mg DAILY@0600 PO 03/01/25 06:00 03/02/25 06:07 40 MG Albuterol 2.5 mg Q4HWA [facility] 03/01/25 06:00 03/02/25 14:36 2.5 MG Patient Own Medication 2.5 BID PO 03/01/25 22:00 03/02/25 12:13 2.5 Dabigatran 150 mg BID PO 03/01/25 22:00 03/02/25 11:58 150 MG Acetaminophen/ Hydrocodone Bitart 1 tab Q4HP PRN PO 03/01/25 16:00 03/02/25 12:13 1 TAB Methylprednisolone Sodium Succinate 40 mg Q6HR IV 03/02/25 19:30 UNV Laboratory Results Laboratory Tests 03/01/25 05:40 Urinalysis Test 03/01/25 09:41 Urine Color Light-yellow (Yellow) Urine Clarity Clear (Clear) Urine pH 6.5 (5.0-9.0) Urine Specific [place] 1.020 (1.001-1.035) Urine Protein Negative (Negative) Urine Ketones 1+ (Negative) H Urine Blood Negative /uL (Negative) Urine Nitrite Negative (Negative) Urine Bilirubin Negative (Negative) Urine Urobilinogen Normal mg/dL (Negative) Urine Leukocyte Esterase Negative /uL (Negative) Urine RBC <1 /hpf (0 - 3) Urine Microscopic WBC < 1 /HPF (0-3) Urine Squamous Epithelial Cells None seen /hpf (<5) Urine Bacteria None seen /hpf (None Seen) Urine Glucose Normal mg/dL (Normal) Microbiology Microbiology Date/Time Source Procedure Growth Status 03/01/25 14:30 Nose MRSA Screen - Final Complete 03/01/25 11:40 Blood Blood Culture - Preliminary NO GROWTH AFTER 24 HOURS OF INCUBATION. Resulted 03/01/25 01:54 Sputum Gram Stain - Final Resulted 03/01/25 01:54 Sputum Respiratory Culture - Preliminary Resulted Assessment/Plan Assessment/Plan 65-year-old male with a known history of chronic respiratory failure on home O2, COPD, chronic AFib currently on Pradaxa, morbid obesity class I,, hypertension, chronic insomnia, anxiety disorder initiation with the hospital with increasing shortness a breath found to have 1. Acute on chronic hypoxic respiratory failure secondary to acute COPD exacerbation 2. Acute COPD exacerbation 3. Chronic AFib currently on Pradax 4. Hypertension 5. Anxiety disorder 6. Chronic insomnia 7. Morbid obesity classI -increase Solu-Medrol to 40 mg IV q.6 hours. -O2 supplementation, med nebs resume home medications PT evaluation and treatment Plan discussed with: Patient My Orders Orders - MARCI SANABRIA MD Procedure Category Date Status Time Melatonin (Melatonin) [facility] 03/02/25 In Process 22:00 Methylprednisolone [facility] 03/02/25 Logged Sod Succ (Solu Medrol 19:30 Date of Service: Mar 02, 2025 Billing Provider: MARCI SANABRIA MD Common Visit Codes: [id number] INP/OBS CARE(MOD) MARCI SANABRIA MD Mar 02, 2025 19:22
[2025-03-02] MEDS: methylPREDNISolone SOD SUCC 40 MG/ML VL IV SCH (21:25)
[2025-03-02] MEDS: MELATONIN 5 MG TAB PO ONE (21:27)
[2025-03-03] VITALS (8 sets, daily range): BP systolic 115–151; BP diastolic 61–90; PULSE 57–96; RESP 18–22; TEMP 97.5–98.4; O2SAT 94–99
[2025-03-03] MEDS ORDERED: METH4PAK PO (13:34)
--- NOTE | 2025-03-03 13:53 | DVHDS2 ---
Discharge Summary Date of Admission Feb 28, 2025 at 22:08 Date of Discharge: Mar 03, 2025 Labs/Diagnostic Data: Laboratory Results Test 03/01/25 09:41 03/01/25 05:40 03/01/25 02:30 02/28/25 19:04 Urine Color Light-yellow (Yellow) Urine Clarity Clear (Clear) Urine pH 6.5 (5.0-9.0) Urine Specific [place] 1.020 (1.001-1.035) Urine Protein Negative (Negative) Urine Ketones 1+ (Negative) Urine Blood Negative /uL (Negative) Urine Nitrite Negative (Negative) Urine Bilirubin Negative (Negative) Urine Urobilinogen Normal mg/dL (Negative) Urine Leukocyte Esterase Negative /uL (Negative) Urine RBC <1 /hpf (0 - 3) Urine Microscopic WBC < 1 /HPF (0-3) Urine Squamous Epithelial Cells None seen /hpf (<5) Urine Bacteria None seen /hpf (None Seen) Urine Glucose Normal mg/dL (Normal) White Blood Count 12.0 10^3/uL (4.4-10.8) Red Blood Count 4.18 10^6/uL (4.5-5.90) Hemoglobin 12.0 g/dL (13.5-17.5) Hematocrit 37.4 % (41.0-53.0) Mean Corpuscular Volume 89.3 fL (80.0-100.0) Mean Corpuscular Hemoglobin 28.7 pg (28.0-32.0) Mean Corpuscular Hemoglobin Concent 32.2 g/dL (32.0-36.0) Red Cell Distribution Width 13.7 % (11.8-14.3) Platelet Count 193 10^3/uL (140-450) Mean Platelet Volume 9.1 fL (6.9-10.8) Neutrophils (%) (Auto) 95.0 % (37.0-80.0) Lymphocytes (%) (Auto) 3.6 % (10.0-50.0) Monocytes (%) (Auto) 1.4 % (0.0-12.0) Eosinophils (%) (Auto) 0.0 % (0.0-7.0) Basophils (%) (Auto) 0.0 % (0.0-2.0) Neutrophils # (Auto) 11.4 10 ^3/uL (1.6-8.6) Lymphocytes # (Auto) 0.4 10 ^3/uL (0.4-5.4) Monocytes # (Auto) 0.2 10 ^3/uL (0-1.3) Eosinophils # (Auto) 0 10 ^3/uL (0-0.8) Basophils # (Auto) 0 10 ^3/uL (0-0.2) Nucleated Red Blood Cells 0.0 % Sodium Level 140 mmol/L (136-145) Potassium Level 4.7 mmol/L (3.5-5.1) Chloride Level 99 mmol/L (98-107) Carbon Dioxide Level 36 mmol/L (20-31) Anion Gap 5 (5-15) Blood Urea Nitrogen 12 mg/dL (9-23) Creatinine 0.81 mg/dL (0.700-1.30) Glomerular Filtration Rate Calc 97 mL/min (>90) BUN/Creatinine Ratio 14.8 (10.0-20.0) Serum Glucose 140 mg/dL (74-106) Calcium Level 9.0 mg/dL (8.7-10.4) Magnesium Level 2.2 mg/dL (1.6-2.6) Total Bilirubin 0.3 mg/dL (0.2-1.0) Aspartate Amino Transferase (AST) 17 U/L (13-40) Alanine Aminotransferase (ALT) 17 U/L (7-40) Alkaline Phosphatase 67 U/L (46-116) B-Type Natriuretic Peptide 67.20 pg/mL (0-100) Total Protein 6.5 g/dL (5.7-8.2) Albumin 4.2 g/dL (3.2-4.8) Vitamin B12 Level 554 pg/mL (211-911) Vitamin D 25-Hydroxy 62.4 ng/mL (30.0-100) Folic Acid 9.79 ng/mL (>5.38) Blood Gas Specimen Type Arterial Blood Gas Sample Site Right radial Blood Gas Patient Temperature 37.0 Arterial Blood Date Drawn [id number] Arterial Blood pH 7.388 (7.350-7.450) Arterial Blood Partial Pressure CO2 59.3 mmHg (35.0-48.0) Arterial Blood Partial Pressure O2 75.5 mmHg (83.0-108.0) Arterial Blood HCO3 34.9 mmol/L (21.0-28.0) Arterial Blood Oxygen Saturation 95.4 % (94.0-98.0) Arterial Blood Base Excess 8.2 mmol/L (-2.0-3.0) Arterial Blood Oxyhemoglobin 94.3 % (94.0-98.0) Arterial Blood Carboxyhemoglobin 0.9 % (0.5-1.5) Arterial Blood Methemoglobin 0.3 % (0.0-1.5) Reji Test Modified Blood Gas Total Hemoglobin 12.10 g/dL (13.5-17.5) Blood Gas Liter Flow 6.00 Blood Gas Modality Nasal cannula FiO2 % 44.0 D-Dimer, Quantitative 0.47 mg/L FEU (0.0-0.49) Test 02/28/25 19:01 02/28/25 16:38 02/28/25 15:59 Troponin I High Sensitivity 11 ng/L (</=54) Blood Gas Set Respiration Rate 12.0 Blood Gas Spontaneous Rate 25 Blood Gas EPAP 5 Blood Gas IPAP 12 Blood Gas Critical Value Read Back yes Blood Gas Notified Whom Blood Gas Notified Time [id number] Blood Gas Notified By risk assessment consultant norberto Lactic Acid Level 0.9 mmol/L (0.4-2.0) Other Laboratory Tests 03/01/25 05:40 Brief Hx & Hospital Course: 65-year-old male with a known history of chronic respiratory failure on home O2, COPD, chronic AFib currently on Pradaxa, morbid obesity class I,, hypertension, chronic insomnia, anxiety disorder initiation with the hospital with increasing shortness a breath found to have acute on chronic hypoxic respiratory failure secondary to acute COPD exacerbation. Patient was given med nebs IV Solu-Medrol has been as empirical IV antibiotics. Patient does have known history of chronic AFib currently on Pradaxa. Patient's hospital course was uneventful. Patient improved significantly currently stable to be discharged. Pulmonary also cleared the patient to be discharged. Condition at Discharge: Stable Final Diagnosis/Problems List 65-year-old male with a known history of chronic respiratory failure on home O2, COPD, chronic AFib currently on Pradaxa, morbid obesity class I,, hypertension, chronic insomnia, anxiety disorder initiation with the hospital with increasing shortness a breath found to have 1. Acute on chronic hypoxic respiratory failure secondary to acute COPD exacerbation 2. Acute COPD exacerbation 3. Chronic AFib currently on Pradax 4. Hypertension 5. Anxiety disorder 6. Chronic insomnia 7. Morbid obesity classI Discharge Disposition: Home SNF Discharge Will this Physician continue t: No Discharge Instruct/Medications Diet: Cardiac 2g Na,low cholest Activity: No Restrictions, As Tolerated Follow Up/Referral: With the PCP in 1-2 weeks Medications: Resume home medications Scheduled Amiodarone HCl (Amiodarone HCl), 1 TAB PO DAILY, (Reported) Azithromycin (Azithromycin), 1 TAB PO DAILY, (Reported) Bisoprolol Fumarate (Bisoprolol Fumarate), 0.5 TAB PO Q2HR, (Reported) Bisoprolol Fumarate (Bisoprolol Fumarate), 0.5 TAB PO BID, (Reported) Ciprofloxacin Hcl (Ciprofloxacin Hcl), 500 MG PO Q12HR, (Reported) Doxycycline Monohydrate (Doxycycline Monohydrate), 1 CAP PO BID Enoxaparin Sodium (Lovenox), 0.4 ML SUBCUT DAILY, (Reported) Ergocalciferol (Vitamin D 74775 Unit), 50,000 UNIT PO QWEEKLY, (Reported) Methylprednisolone (Medrol Dosepak), 4 MG PO UD Sertraline Hcl (Zoloft), 150 MG PO DAILY, (Reported) Tiotropium [place] Monohydrate (Spiriva Respimat), 2 PUFF INH DAILY, (Reported) Scheduled PRN Hydrocodone-Acetaminophen (Hydrocodone Bitartrate/AC 10-325 mg), 1 TAB PO Q4HPRN PRN for PAIN SCALE 1 THRU 6, (Reported) Hydrocodone-Acetaminophen (Hydrocodone Bitartrate/AC 10-325 mg), 2 TAB PO Q6HPRN PRN for PAIN SCALE 7 THRU 10, (Reported) Miscellaneous Medications Albuterol Sulfate (Albuterol Sulfate Hfa), INH, (Reported) Sertraline Hcl (Sertraline Hcl), TAB PO, (Reported) Discontinued Medications Prednisone (Prednisone), 20 MG PO DAILY Discharge Statement: "Patient was advised to return to the ER or call 911 if any headaches, dizziness, shortness of breath, chest pain, abdominal pain, bleeding, fevers, or worsening of medical condition. Patient was counseled about treatment plan, medications, possible side effects, patientverbalized understanding. All questions were answered to the best of my ability. This discharge took greater then 30 minutes in planning, reviewing documentation, counseling the patient, and discussing with other team members." ASSESSMENT ASSESSMENT Assessment 65-year-old male with a known history of chronic respiratory failure on home O2, COPD, chronic AFib currently on Pradaxa, morbid obesity class I,, hypertension, chronic insomnia, anxiety disorder initiation with the hospital with increasing shortness a breath found to have 1. Acute on chronic hypoxic respiratory failure secondary to acute COPD exacerbation 2. Acute COPD exacerbation 3. Chronic AFib currently on Pradax 4. Hypertension 5. Anxiety disorder 6. Chronic insomnia 7. Morbid obesity classI Date of Service: Mar 03, 2025 Billing Provider: MARCI SANABRIA MD Common Visit Codes: [id number] DISCH DAY >30min MARCI SANABRIA MD Mar 03, 2025 13:53
--- NOTE | 2025-03-03 14:45 | CONS ---
Pharmacy Clinical Information: QTc > 500, patient on azithromycin --> consider changing azithromycin to dox ycycline DUDLEY ARRIAGA PHARMACIST Mar 03, 2025 14:45
[2025-03-03] MEDS ORDERED: LEVALBUTEROL HCL 1.25 MG/3 ML NEB NEB SCH (18:00)
--- NOTE | 2025-03-04 12:03 | ECG ---
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
== END 2025-03-03 16:38 | disposition home or self-care (01) | DRG 177 ==
LOC: EDBD 15:37 → ER 15:37 → OVERFLOW 22:08 → ER 22:08 → TELE-EAST 22:08
PROVIDERS: ADMIT Internal Medicine; ATTEND Internal Medicine
PROC: 5A09357 Assistance with Respiratory Ventilation, Less than 24 Consecutive Hours, Continuous Positive Airway Pressure (ICD-10-PCS; principal; 2025-02-28)
DX: J15.69 Pneumonia due to other Gram-negative bacteria (principal); J96.21 Acute and chronic respiratory failure with hypoxia; J96.22 Acute and chronic respiratory failure with hypercapnia; J44.1 Chronic obstructive pulmonary disease with (acute) exacerbation; I48.20 Chronic atrial fibrillation, unspecified; J44.0 Chronic obstructive pulmonary disease with (acute) lower respiratory infection; J15.9 Unspecified bacterial pneumonia; I10 Essential (primary) hypertension; F41.9 Anxiety disorder, unspecified; F51.04 Psychophysiologic insomnia; E66.01 Morbid (severe) obesity due to excess calories; F17.210 Nicotine dependence, cigarettes, uncomplicated; Z79.2 Long term (current) use of antibiotics; Z99.81 Dependence on supplemental oxygen; Z90.5 Acquired absence of kidney; Z79.899 Other long term (current) drug therapy; Z85.528 Personal history of other malignant neoplasm of kidney; Z68.32 Body mass index [BMI] 32.0-32.9, adult
CPT/HCPCS: 36415; 36600; 71045; 80053; 81001; 82306; 82607; 82746; 82805; 83605; 83735; 83880; 84484; 85025; 85379; 87040; 87070; 87077; 87081; 87205; 93005; 93306; 94640; 94660; 96365; 96375; 99291; 99292; G0378

== ENCOUNTER 2025-05-18 08:38 | Inpatient (IN) | payer OTHER ==
[~2025-05-18] VITALS: Ht 185.4 cm; Wt 114.2 kg
[~2025-05-18 08:38] MED LIST changes: +ALBU108A5 INH; +AMIO200T13 PO; +AZIT-43 PO; +METH4PAK PO; -PRED20TA2 PO; +SERT-160 PO; -SERT-206 PO; +SERT100T PO; +TIOT17SP INH
[2025-05-18] MEDS: ALBUTEROL SULF 2.5 MG/0.5ML(0.5%) NEB SOLN NEB ONE (08:50)
[2025-05-18] MEDS: IPRATROPIUM BROM 0.5 MG/2.5ML INH SOL NEB ONE (08:50)
[2025-05-18] MEDS: methylPREDNISolone SOD SUCC 125 MG/2 ML VL IV ONE (08:53)
--- NOTE | 2025-05-18 08:54 | ECG ---
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
[2025-05-18] MEDS: ACETAMINOPHEN IV 1000 MG/100ML (10MG/ML) IV STA (08:57)
[2025-05-18 09:08] LABS: Hematocrit 40.4 % (41.0-53.0); Hemoglobin 13.0 g/dL (13.5-17.5); Mean Corpuscular Hemoglobin 29.9 pg (28.0-32.0); Mean Corpuscular Volume 93.0 fL (80.0-100.0); Nucleated Red Blood Cells % 0.1 %
[2025-05-18 09:17] LABS: Anion Gap 7 (5-15); Potassium 4.2 mmol/L (3.5-5.1); Sodium 140 mmol/L (136-145)
[2025-05-18 09:18] LABS: Calcium 10.4 mg/dL (8.7-10.4)
[2025-05-18] MEDS: SODIUM CHLORIDE 0.9% 1,000 ML IV ONE ×2 (09:20→11:15)
[2025-05-18 09:23] LABS: BUN/Creatinine Ratio 10.5 (10.0-20.0)
[2025-05-18 09:26] LABS: Blood Urea Nitrogen 8 mg/dL (9-23); Carbon Dioxide 39 mmol/L (20-31); Chloride 94 mmol/L (98-107); Glucose 160 mg/dL (74-106)
--- NOTE | 2025-05-18 09:31 | DVH ---
CHEST RADIOGRAPH Indication: sob Technique: Single frontal view of the chest was obtained COMPARISON: XY CHEST PORTABLE on DOS: 02/28/25, XY CHEST PORTABLE on DOS: 02/14/25, CT ANGIO CHEST CONTR AST on DOS: 12/01/21, CHEST PORTABLE on DOS: 12/01/21, CXRP on DOS: 12/01/21 FINDINGS: Lines and Tubes: None Lungs: Multifocal airspace disease. Pleura: No effusion. No pneumothorax. Cardiomediastinal contours: Unremarkable Bones: Unremarkable IMPRESSION: Multifocal airspace disease.
--- NOTE | 2025-05-18 09:40 | ED.PDOC ---
History of Present Illness HPI Comments 65-YEAR-OLD MALE BIBA WITH PRIOR MEDICAL HISTORY OF RIGHT LUNG INOPERABLE, COPD, ASTHMA, PNEUMONIA AND A CHIEF COMPLAINT OF SHORTNESS A BREATH FOR 30 MINUTES BEFORE EMS ARRIVED ON SCENE. WHEN EMS ARRIVED TO THE PATIENT'S HOUSE, THE PATIENT WAS ON 3L OF O2 SATURATION OF 86%. IN ROUTE THEY GAVE THE PATIENT A 20 GAUGE TO HIS LEFT HAND AND A CPAP WHICH BROUGHT HIS O2 SAT UP TO 95%. ON SCENE STATED THAT THE PATIENT WAS SPITTING UP GREEN PHLEGM FOR THE PAST TWO DAYS. DENIES CHILLS, FEVER, N/V/D, CP. NO OTHER ASSOCIATED SYMPTOMS, MODIFIERS, RECENT INJURIES OR SICK CONTACTS PRESENT AT THIS TIME. Chief Complaint: Shortness of Breath Time Seen by MD: 09:35 Reviewed Notes: Nurses Notes, Medications, Allergies Allergies: Coded Allergies: NO KNOWN ALLERGIES (Unverified , 12/01/21) Home Meds Active Scripts Methylprednisolone (Medrol Dosepak) 4 Mg Jaleel, 4 MG PO UD, #21 TAB UAD Prov:MARCI SANABRIA MD 03/03/25 Doxycycline Monohydrate (Doxycycline Monohydrate) 100 Mg Cap, 1 CAP PO BID for 7 Days, #14 CAP Prov:DECLAN BALLESTEROS MD 12/03/21 Reported Medications Bisoprolol Fumarate (Bisoprolol Fumarate) 5 Mg Tab, 0.5 TAB PO BID, #30 TAB 5 Refills 03/01/25 Sertraline Hcl (Zoloft) 100 Mg Tab, 150 MG PO DAILY, TAB 03/01/25 Albuterol Sulfate (Albuterol Sulfate Hfa) 108 Mcg/Act Aer, INH 02/28/25 Tiotropium [place] Monohydrate (Spiriva Respimat) 2.5 Mcg/Act Spr, 2 PUFF INH DAILY 02/28/25 Azithromycin (Azithromycin) 250 Mg Tab, 1 TAB PO DAILY 02/28/25 Sertraline Hcl (Sertraline Hcl) 100 Mg Tab, TAB PO 02/28/25 Amiodarone HCl (Amiodarone HCl) 200 Mg Tab, 1 TAB PO DAILY 02/28/25 Bisoprolol Fumarate (Bisoprolol Fumarate) 5 Mg Tab, 0.5 TAB PO Q2HR, #30 TAB 5 Refills 12/02/21 Hydrocodone-Acetaminophen (Hydrocodone Bitartrate/AC 10-325 mg) 1 Tab Tab, 2 TAB PO Q6HPRN PRN for PAIN SCALE 7 THRU 10, TAB 12/02/21 Hydrocodone-Acetaminophen (Hydrocodone Bitartrate/AC 10-325 mg) 1 Tab Tab, 1 TAB PO Q4HPRN PRN for PAIN SCALE 1 THRU 6, TAB 12/02/21 Ciprofloxacin Hcl (Ciprofloxacin Hcl) 500 Mg Tab, 500 MG PO Q12HR, MG 12/02/21 Enoxaparin Sodium (Lovenox) 40 Mg/0.4 Ml Ij, 0.4 ML SUBCUT DAILY, #10 SYR 12/02/21 Ergocalciferol (VITAMIN D 19784 UNIT) 50,000 [place], [address] UNIT PO QWEEKLY, CAP 12/02/21 Information Source: Patient Mode of Arrival: EMS Severity: Moderate Timing: Minutes Duration: Since onset Prehospital treatment: None Past Medical History PAST MEDICAL HISTORY: AFIB, Asthma, COPD Past Medical History (Other): PNEUMONIA Surgical History: Denies all surgeries Family History Family History: Reviewed,noncontributory to illness, Unknown Social History Smoker: Non-Smoker Alcohol: Denies ETOH Use Drugs: Denies Drug Use Lives In: Home Constitutional: denies: chills, diaphoresis, fatigue, fever, malaise, sweats, weakness, others EENTM: denies: blurred vision, double vision, ear bleeding, ear discharge, ear drainage, ear pain, ear ringing, eye pain, eye redness, hearing loss, mouth pain, mouth swelling, nasal discharge, nose bleeding, nose congestion, nose daniel n, photophobia, tearing, throat pain, throat swelling, voice changes, others Respiratory: reports: shortness of breath; denies: cough, hemoptysis, orthopnea, SOB at rest, SOB with excertion, stridor, wheezing, others Cardiovascular: denies: chest pain, dizzy spells, diaphoresis, Dyspnea on exertion, edema, irregular heart beat, left arm pain, lightheadedness, palpitations, PND, syncope, others Gastrointestinal: denies: abdomen distended, abdominal pain, blood streaked bowels, constipated, diarrhea, dysphagia, difficulty swallowing, hematemesis, me sushma, nausea, poor appetite, poor fluid intake, rectal bleeding, rectal pain, vomiting, others Genitourinary: denies: burning, dysuria, flank pain, frequency, hematuria, incontinence, penile discharge, penile sore, pain, testicle pain, testicle swelling, urgency, others Neurological: denies: dizziness, fainting, headache, left sided numbness, left sided weakness, numbness, paresthesia, pre-existing deficit, right sided numbness, right sided weakness, seizure, speech problems, tingling, tremors, weakness, others Musculoskeletal: denies: back pain, gout, joint pain, joint swelling, muscle pain, muscle stiffness, neck pain, others Integumetry: denies: bruises, change in color, change in hair/nails, dryness, laceration, lesions, lumps, rash, wounds, others Allergic/Immunocompromised: denies: Difficulty Healing, Frequent Infections, Hives, Itching, others Hematologic/Lymphatic: denies: anemia, blood clots, easy bleeding, easy bruising, swollen glands, others Endocrine: denies: excessive hunger, excessive sweating, excessive thirst, excessive urination, flushing, intolerance to cold, intolerance to heat, unexplained weight gain, unexplained weight loss, others Psychiatric: denies: anxiety, bipolar disorder, depression, hopeless, panic disorder, schizophrenia, sleepless, suicidal, others All Other Systems: Reviewed and Negative Physical Exam General Appearance: No Apparent Distress, Normal HEENT: Normal ENT Inspection, Pharynx Normal, TMs Normal Neck: Full Range of Motion, Non-Tender, Normal, Normal Inspection Respiratory: Chest Non-Tender, Lungs Clear, No Accessory Muscle Use, No Respiratory Distress, Normal Breath Sounds Cardiovascular: No Edema, No JVD, No Murmur, No Gallop, Normal Peripheral Pulses, Regular Rate/Rhythm Breast Exam: Deferred Gastrointestinal: No Organomegaly, Non Tender, No Pulsatile Mass, Normal Bowel Sounds, Soft Genitalia: Deferred Pelvic: Deferred Rectal: Deferred Extremities: No calf tenderness, Normal capillary refill, Normal inspection, Normal range of motion, Non-tender, No pedal edema Musculoskeletal : Apperance: Normal Neurologic: Alert, strategic communications manager II-XII nml as Tested, No Motor Deficits, Normal Affect, Normal Mood, No Sensory Deficits Cerebellar Function: Normal Reflexes: Normal Skin: Dry, Normal Color, Warm Lymphatic: No Adenopathy Was a procedure done? Was a procedure done?: No EKG EKG : Pulse Rate (adult): 128 [place]: Normal Cardiac Rhythm: ST Block: None Hypertrophy: None ST: Normal Differential Dx Considerations may include: Sepsis, COPD, viral syndrome, electrolyte abnormality, CHF X-Ray, Labs, Meds, VS Vital Signs Date Time Temp Pulse Resp B/P (MAP) Pulse Ox O2 Delivery O2 Flow Rate FiO2 05/18/25 12:04 107 05/18/25 12:00 106 05/18/25 10:45 105 146/93 Facial BiPAP Mask 40 05/18/25 09:55 107 05/18/25 09:40 128 05/18/25 09:07 101.1 120 24 120/90 95 101.1 05/18/25 08:51 128 05/18/25 08:50 31 90 Bi-Pap+ 50 50 05/18/25 08:50 125 158/138 Facial BiPAP Mask 40 Lab Test 05/18/25 11:50 05/18/25 11:34 05/18/25 09:58 05/18/25 09:38 Range/Units Lactic Acid Level Pending Troponin I High Sensitivity Pending 41 </=54 ng/L Urine Color Light-yellow Yellow Urine Clarity Clear Clear Urine pH 6.0 5.0-9.0 Urine Specific [place] 1.016 1.001-1.035 Urine Protein Negative Negative Urine Ketones Trace Negative Urine Blood Negative Negative /uL Urine Nitrite Negative Negative Urine Bilirubin Negative Negative Urine Urobilinogen Normal Negative mg/dL Urine Leukocyte Esterase Negative Negative /uL Urine RBC 1 0 - 3 /hpf Urine Microscopic WBC 1 0-3 /HPF Urine Squamous Epithelial Cells Few <5 /hpf Urine Bacteria None seen None Seen /hpf Urine Glucose Normal Normal mg/dL Blood Gas Specimen Type Arterial Blood Gas Sample Site Right radial Blood Gas Patient Temperature 37.0 Arterial Blood Date Drawn [id number] Arterial Blood pH 7.315 L 7.350-7.450 Arterial Blood Partial Pressure CO2 73.8 *H 35.0-48.0 mmHg Arterial Blood Partial Pressure O2 64.6 L 83.0-108.0 mmHg Arterial Blood HCO3 36.7 H 21.0-28.0 mmol/L Arterial Blood Oxygen Saturation 91.8 L 94.0-98.0 % Arterial Blood Base Excess 8.0 H -2.0-3.0 mmol/L Arterial Blood Oxyhemoglobin 89.7 L 94.0-98.0 % Arterial Blood Carboxyhemoglobin 1.8 H 0.5-1.5 % Arterial Blood Methemoglobin 0.5 0.0-1.5 % Reji Test Yes Blood Gas Total Hemoglobin 12.80 L 13.5-17.5 g/dL Blood Gas Set Respiration Rate 12.0 Blood Gas Modality Mask - bipap FiO2 % 40.0 Blood Gas EPAP 5 Blood Gas IPAP 12 Blood Gas Critical Value Read Back Yes Blood Gas Notified Whom prabhu Jose Blood Gas Notified Time [id number] Blood Gas Notified By Asad velez Test 05/18/25 08:50 Range/Units White Blood Count 9.4 4.4-10.8 10^3/uL Red Blood Count 4.35 L 4.5-5.90 10^6/uL Hemoglobin 13.0 L 13.5-17.5 g/dL Hematocrit 40.4 L 41.0-53.0 % Mean Corpuscular Volume 93.0 80.0-100.0 fL Mean Corpuscular Hemoglobin 29.9 28.0-32.0 pg Mean Corpuscular Hemoglobin Concent 32.2 32.0-36.0 g/dL Red Cell Distribution Width 13.3 11.8-14.3 % Platelet Count 305 140-450 10^3/uL Mean Platelet Volume 8.4 6.9-10.8 fL Neutrophils (%) (Auto) 77.8 37.0-80.0 % Lymphocytes (%) (Auto) 11.3 10.0-50.0 % Monocytes (%) (Auto) 9.5 0.0-12.0 % Eosinophils (%) (Auto) 0.9 0.0-7.0 % Basophils (%) (Auto) 0.5 0.0-2.0 % Neutrophils # (Auto) 7.3 1.6-8.6 10 ^3/uL Lymphocytes # (Auto) 1.1 0.4-5.4 10 ^3/uL Monocytes # (Auto) 0.9 0-1.3 10 ^3/uL Eosinophils # (Auto) 0.1 0-0.8 10 ^3/uL Basophils # (Auto) 0 0-0.2 10 ^3/uL Nucleated Red Blood Cells 0.1 % Prothrombin Time 10.8 9.3-11.8 sec Prothrombin Time INR 1.02 0.9-1.15 Activated Partial Thromboplast Time 29.1 24.5-34.5 SEC Sodium Level 140 136-145 mmol/L Potassium Level 4.2 3.5-5.1 mmol/L Chloride Level 94 L 98-107 mmol/L Carbon Dioxide Level 39 H 20-31 mmol/L Anion Gap 7 5-15 Blood Urea Nitrogen 8 L 9-23 mg/dL Creatinine 0.76 0.700-1.30 mg/dL Glomerular Filtration Rate Calc 99 >90 mL/min BUN/Creatinine Ratio 10.5 10.0-20.0 Serum Glucose 160 H 74-106 mg/dL Lactic Acid Level 1.8 0.4-2.0 mmol/L Calcium Level 10.4 8.7-10.4 mg/dL Troponin I High Sensitivity 36 </=54 ng/L B-Type Natriuretic Peptide 64.34 0-100 pg/mL Current Medications Medications (Trade) Dose Ordered Sig/Gagan Route Start Time Stop Time Status Last Admin Albuterol (Ventolin Medneb) 5 mg ONCE ONCE NEB 05/18/25 08:45 05/18/25 08:46 DC 05/18/25 08:50 Ipratropium [place] (Atrovent Medneb) 0.5 mg ONCE ONCE NEB 05/18/25 08:45 05/18/25 08:46 DC 05/18/25 08:50 Methylprednisolone Sodium Succinate (Solu Medrol) 62.5 mg ONCE ONCE IV 05/18/25 08:45 05/18/25 08:46 DC 05/18/25 08:53 Acetaminophen (Ofirmev) 1,000 mg DAILY STAT IV 05/18/25 08:47 05/18/25 08:49 DC 05/18/25 08:57 Sodium Chloride 1,000 ml @ 1,000 mls/hr Q1H ONCE IV 05/18/25 09:00 05/18/25 09:59 DC 05/18/25 09:20 Vancomycin HCl 250 ml @ 250 mls/hr ONCE ONCE IV 05/18/25 11:15 05/18/25 12:14 DC 05/18/25 11:55 Sodium Chloride 1,000 ml @ 1,000 mls/hr Q1H ONCE IV 05/18/25 11:15 05/18/25 12:14 DC 05/18/25 11:15 Time of 1ST Reevaluation: 10:05 Reevaluation 1ST: Unchanged Patient Education/Counseling: Diagnosis, Treatment, Prognosis Family Education/Counseling: No Family Present SEPSIS Sepsis Screen Date sepsis recognized/suspect: May 18, 2025 Time Sepsis recognized/suspect: 0839 Recent Procedure: No On Antibiotic Therapy: No Respiratory Rate >20: Yes Heart Rate >90: Yes Temp<36 C (96.8 F) or >38.3 C: Yes SBP <90 or MAP <65 mmHG: No New Acute Mental Status Change: No Is the patient on CPAP, BIPAP,: Yes Physician Orders Chest Portable (05/18/25 08:47) Troponin-I Hs (05/18/25 11:42) BIPAP (05/18/25 08:40) Accucheck (05/18/25 08:47) Blood Culture (05/18/25 08:47) Lactic Acid W/ Reflex Order (05/18/25 12:00) Cefepime 1gm/50ml (Maxipime 1gm/50ml) (05/18/25 14:00) Notify Md If Map <65 Or Bp<90 (05/18/25 08:47) If Map<65 Start Vasopressor (05/18/25 08:47) Sepsis Reassesment After Fluid (05/18/25 09:47) Abg W/ Co-Ox (05/18/25 09:46) Azithromycin 500mg/ 250ml (Zithromax 50 (05/18/25 11:15) Vital Signs Date Time Temp Pulse Resp B/P (MAP) Pulse Ox O2 Delivery O2 Flow Rate FiO2 05/18/25 12:04 107 05/18/25 12:00 106 05/18/25 10:45 105 146/93 Facial BiPAP Mask 40 05/18/25 09:55 107 05/18/25 09:40 128 05/18/25 09:07 101.1 120 24 120/90 95 101.1 05/18/25 08:51 128 05/18/25 08:50 31 90 Bi-Pap+ 50 50 05/18/25 08:50 125 158/138 Facial BiPAP Mask 40 Laboratory Tests Test 05/18/25 08:50 05/18/25 11:50 Lactic Acid Level 1.8 mmol/L (0.4-2.0) Pending White Blood Count 9.4 10^3/uL (4.4-10.8) Medications Medications Dose Ordered Sig/Gagan Route Start Time Stop Time Status Last Admin Dose Admin Acetaminophen 1,000 mg DAILY STAT IV 05/18/25 08:47 05/18/25 08:49 DC 05/18/25 08:57 Albuterol 5 mg ONCE ONCE NEB 05/18/25 08:45 05/18/25 08:46 DC 05/18/25 08:50 Ipratropium [place] 0.5 mg ONCE ONCE NEB 05/18/25 08:45 05/18/25 08:46 DC 05/18/25 08:50 Methylprednisolone Sodium Succinate 62.5 mg ONCE ONCE IV 05/18/25 08:45 05/18/25 08:46 DC 05/18/25 08:53 Sodium Chloride 1,000 ml @ 1,000 mls/hr Q1H ONCE IV 05/18/25 09:00 05/18/25 09:59 DC 05/18/25 09:20 Sodium Chloride 1,000 ml @ 1,000 mls/hr Q1H ONCE IV 05/18/25 11:15 05/18/25 12:14 DC 05/18/25 11:15 Vancomycin HCl 250 ml @ 250 mls/hr ONCE ONCE IV 05/18/25 11:15 05/18/25 12:14 DC 05/18/25 11:55 Departure 1 Departure Time of Disposition: 12:27 (Patient presented with acute shortness of breath concerning for acute on chronic COPD Exacerbation, Pneumonia, ACS, CHF, Pneumothorax. Less likely PE, Dissection. Data: 1. I ordered and reviewed the result of at least 3 labs including a CBC, BMP, and Troponin. 2. I independently interpreted the following tests: Chest X-ray shows multifocal lung disease .Risk:This patient has a high risk of morbidity due to further diagnostic testing or treatment and may suffer from respiratory or cardiac etiology . Workup reveals a likely COPD Exacerbation and patient should be admitted for further workup. and possible expert consultation.Patient with possible sepsis but appears clinically volume overloaded so we will not give the full fluid bolus.) Impression: Primary Impression: Acute and chronic respiratory failure Additional Impressions: Shortness of breath Sepsis Disposition: ADMITTED INPATIENT Admit to: DEO Condition: Critical Critical Care Note Critical Care Time?: Yes Critical care comment: Acute on chronic respiratory failure Authorized and Performed by: Magnolia Greenfield MD Total critical care time: Approximately 117 minutes Due to a high probability of clinically significant, life threatening deterioration, the patient required my highest level of preparedness to intervene emergently and I personally spent this critical care time directly and personally managing the patient. This critical care time included obtaining a history; examining the patient; pulse oximetry; ordering and review of studies; arranging urgent treatment with development of a management plan; evaluation of patient's response to treatment; frequent reassessment; and, discussions with other providers. This critical care time was performed to assess and manage the high probability of imminent, life-threatening deterioration that could result in multi-organ failure. It was exclusive of separately billable procedures and treating other patients and teaching time. Please see my other sections and the rest of the note for further information on patient assessment and treatment. Stability Stability form required: No I personally scribed for MAGNOLIA GREENFIELD MD ([email or web address]) on 05/18/25 at 09:40. Electronically submitted by Fritz Flores ([email or web address]). MAGNOLIA GREENFIELD MD May 18, 2025 09:40
[2025-05-18 09:50] LABS: Base Excess 8.0 mmol/L (-2.0-3.0)
[2025-05-18 09:55] LABS: INR 1.02 (0.9-1.15); Partial Thromboplastin Time 29.1 SEC (24.5-34.5); Prothrombin Time 10.8 sec (9.3-11.8)
--- NOTE | 2025-05-18 09:56 | ECG ---
[facility] Test Date: 2025-05-18 Test Time: 09:55:28 Pat Name: TEJA RICHARDSON Department: Room: [address] [place] [address] Gender: M Manager Fire: MARCUS : 1960 Requested By: MAGNOLIA SO Order Number: [id number] Reading MD: Palmer Rasmussen Measurements Intervals [place] Rate: 107 P: 59 GA: 156 QRS: 94 QRSD: 158 T: 8 QT: 394 QTc: 526 Interpretive Statements Sinus tachycardia RBBB and LPFB Electronically Signed On 05-18-2025 16:39:48 PDT by Palmer Rasmussen Please click the below link to view image of tracing.
[2025-05-18] MEDS: VANCOMYCIN 1GM/250ML KIT 250 ML IV ONE (11:55)
--- NOTE | 2025-05-18 12:06 | ECG ---
[facility] Test Date: 2025-05-18 Test Time: 12:04:40 Pat Name: TEJA RICHARDSON Department: Room: [address] [place] [address] Gender: M Chief Psychology: MARCUS : 1960 Requested By: MAGNOLIA SO Order Number: [id number] Reading MD: Palmer Rasmussen Measurements Intervals [place] Rate: 107 P: 73 MA: 161 QRS: 144 QRSD: 161 T: 0 QT: 365 QTc: 487 Interpretive Statements Sinus tachycardia Atrial premature complex Consider right atrial enlargement RBBB and LPFB Electronically Signed On 05-18-2025 16:40:18 PDT by Palmer Rasmussen Please click the below link to view image of tracing.
[2025-05-18 12:15] LABS: Urine Protein, UAD Negative (Negative)
[2025-05-18] MEDS: AZITHROMYCIN 500MG/ 250ML 250 ML IV ONE (13:30)
[2025-05-18 15:15] VITALS: BP 141/76; PULSE 100; O2SAT 95
[2025-05-18 15:24] VITALS: BP 140/88; PULSE 102; RESP 31; TEMP 99.2; O2SAT 91
[2025-05-18] MEDS: CEFEPIME 1GM/50ML 50 ML IV SCH (15:35)
[2025-05-18] MEDS ORDERED: ACETAMINOPHEN 325 MG TAB PO PRN (16:15)
[2025-05-18] MEDS ORDERED: ONDANSETRON HCL 4 MG/2 ML VIAL IV PRN (16:15)
[2025-05-18] MEDS ORDERED: MORPHINE SULFATE INJ 2 MG/ml SYRG IV PRN (16:15)
[2025-05-18] MEDS ORDERED: NITROGLYCERIN 0.4 MG SL TAB SL PRN (16:15)
[2025-05-18] MEDS ORDERED: DABI150C7 PO (16:27)
--- NOTE | 2025-05-18 16:50 | DVHHP2 ---
History of Present Illness Reason for Visit: Shortness of breath History of Present Illness Saul Bajwa is a 65-year-old male with past medical history of COPD on home oxygen at 6L N/C at home, atrial fibrillation, depression, and asthma, who came to the hospital for shortness of breath. Patient's states she was sick about 2 weeks ago and he started feeling bad about 4 days ago. Patient is typically on 6L N/C oxygen at home. They called and spoke with his backend developer at [place] a couple days ago who told them to increase his oxygen to 7L. This morning the patient continued to worsen with decreased oxygenation, and increased work of breathing, so EMS was called and he was taken to the hospital. at the bedside states his mentation is worsening, and that he started saying things that don't make sense. ABG was completed that showed he was worsening. My self, respiratory therapy, and primary RN spoke with the patient and his about possible intubation and plan of care they both stated they did not want CPR or intubation. That it is okay to leave him on the BiPAP and continue treatment, but not intubation or CPR. Cardiovascular: AFIB Pulmonary: Asthma, COPD Psych: Depression Past Surgical History: Other (right nephrectomy, right leg), Total hip replacement (bilateral ) Smoke: No ALCOHOL: heavy (3-4 beers/day) Drugs: None Lives: with Family Domestic Violence: Neg Review of Systems Constitutional: No: Fever, Chills, Sweats, Weakness, Malaise, Other Eyes: No: Pain, Vision change, Conjunctivae inflammation, Eyelid inflammation, Other, Redness ENT: No: Ear pain, Ear discharge, Nose pain, Nose discharge, Nose congestion, Mouth pain, Mouth swelling, Throat pain, Throat swelling, Other Respiratory: Shortness of breath, SOB with excertion, Wheezing; No: Cough, Dry, Hemoptysis, Pleuritic Pain, Sputum, Wheezing, Other Cardiovascular: No: Chest Pain, Palpitations, Orthopnea, Paroxysmal Noc. Dyspnea, Edema, Lt Headedness, Other Gastrointestinal: No: Nausea, Vomiting, Abdominal Pain, Diarrhea, Constipation, Melena, Hematochezia, Other Genitourinary: No Dysuria, No Frequency, No Incontinence, No Hematuria, No Retention, No Other Musculoskeletal: No: other, neck pain, shoulder pain, arm pain, back pain, hand pain, leg pain, foot pain Skin: No: Rash, Lesions, Jaundice, Bruising, Other Neurological: No: Weakness, Numbness, Incoordination, Change in speech, Confusion, Seizures, Other Allergies: Coded Allergies: NO KNOWN ALLERGIES (Unverified , 12/01/21) Medications Current Medications Medications Dose Ordered Sig/Gagan Route Start Time Stop Time Status Last Admin Dose Admin Cefepime HCl 50 ml @ 12.5 mls/hr Q8HR IV 05/18/25 14:00 05/18/25 15:35 12.5 MLS/HR Nifedipine 30 mg DAILY PO 05/19/25 18:00 Acetaminophen/ Hydrocodone Bitart 1 tab Q4HP PRN PO 05/18/25 16:15 UNV Ondansetron HCl 4 mg Q4HP PRN IV 05/18/25 16:15 UNV Docusate Sodium 100 mg BIDPRN PRN PO 05/18/25 16:15 UNV Acetaminophen 650 mg Q6HP PRN PO 05/18/25 16:15 UNV Nitroglycerin 0.4 mg Q5MINP PRN SL 05/18/25 16:15 UNV Morphine Sulfate 2 mg Q30M PRN IV 05/18/25 16:15 UNV Amiodarone HCl 200 mg DAILY PO 05/19/25 10:00 UNV Patient Own Medication 0.5 tab BID PO 05/18/25 22:00 UNV Patient Own Medication 150 mg DAILY PO 05/19/25 10:00 UNV Patient Own Medication 2 puff DAILY INH 05/19/25 10:00 UNV Exam Vital Signs Vital Signs Date Time Temp Pulse Resp B/P (MAP) Pulse Ox O2 Delivery O2 Flow Rate FiO2 05/18/25 16:21 97 37 161/92 (115) 94 05/18/25 15:24 99.2 50 99.2 05/18/25 12:22 Facial BiPAP Mask General Appearance: Alert, Oriented X3, Cooperative, moderate distress HEENT: Atraumatic, PERRLA Respiratory: Other (Diminished and wheezing breath sounds) Cardiovascular: Normal S1, Normal S2, No murmurs, Other (ST) Abdominal: Normal bowel sounds, Soft, No tenderness, No hepatospenomegaly Extremities: No clubbing, No cyanosis Skin: No rashes, No breakdown Neuro: Normal speech Psych/Mental Status: Mental status NL Labs/Xrays Labs Test 05/18/25 11:50 05/18/25 11:34 05/18/25 09:38 05/18/25 08:50 Range/Units Lactic Acid Level 1.5 0.4-2.0 mmol/L Troponin I High Sensitivity 45 </=54 ng/L Urine Color Light-yellow Yellow Urine Clarity Clear Clear Urine pH 6.0 5.0-9.0 Urine Specific Bryant 1.016 1.001-1.035 Urine Protein Negative Negative Urine Ketones Trace Negative Urine Blood Negative Negative /uL Urine Nitrite Negative Negative Urine Bilirubin Negative Negative Urine Urobilinogen Normal Negative mg/dL Urine Leukocyte Esterase Negative Negative /uL Urine RBC 1 0 - 3 /hpf Urine Microscopic WBC 1 0-3 /HPF Urine Squamous Epithelial Cells Few <5 /hpf Urine Bacteria None seen None Seen /hpf Urine Glucose Normal Normal mg/dL Blood Gas Specimen Type Arterial Blood Gas Sample Site Right radial Blood Gas Patient Temperature 37.0 Arterial Blood Date Drawn [id number] Arterial Blood pH 7.315 L 7.350-7.450 Arterial Blood Partial Pressure CO2 73.8 *H 35.0-48.0 mmHg Arterial Blood Partial Pressure O2 64.6 L 83.0-108.0 mmHg Arterial Blood HCO3 36.7 H 21.0-28.0 mmol/L Arterial Blood Oxygen Saturation 91.8 L 94.0-98.0 % Arterial Blood Base Excess 8.0 H -2.0-3.0 mmol/L Arterial Blood Oxyhemoglobin 89.7 L 94.0-98.0 % Arterial Blood Carboxyhemoglobin 1.8 H 0.5-1.5 % Arterial Blood Methemoglobin 0.5 0.0-1.5 % Reji Test Yes Blood Gas Total Hemoglobin 12.80 L 13.5-17.5 g/dL Blood Gas Set Respiration Rate 12.0 Blood Gas Modality Mask - bipap FiO2 % 40.0 Blood Gas EPAP 5 Blood Gas IPAP 12 Blood Gas Critical Value Read Back Yes Blood Gas Notified Whom prabhu Jose Blood Gas Notified Time [id number] Blood Gas Notified By Asad velez White Blood Count 9.4 4.4-10.8 10^3/uL Red Blood Count 4.35 L 4.5-5.90 10^6/uL Hemoglobin 13.0 L 13.5-17.5 g/dL Hematocrit 40.4 L 41.0-53.0 % Mean Corpuscular Volume 93.0 80.0-100.0 fL Mean Corpuscular Hemoglobin 29.9 28.0-32.0 pg Mean Corpuscular Hemoglobin Concent 32.2 32.0-36.0 g/dL Red Cell Distribution Width 13.3 11.8-14.3 % Platelet Count 305 140-450 10^3/uL Mean Platelet Volume 8.4 6.9-10.8 fL Neutrophils (%) (Auto) 77.8 37.0-80.0 % Lymphocytes (%) (Auto) 11.3 10.0-50.0 % Monocytes (%) (Auto) 9.5 0.0-12.0 % Eosinophils (%) (Auto) 0.9 0.0-7.0 % Basophils (%) (Auto) 0.5 0.0-2.0 % Neutrophils # (Auto) 7.3 1.6-8.6 10 ^3/uL Lymphocytes # (Auto) 1.1 0.4-5.4 10 ^3/uL Monocytes # (Auto) 0.9 0-1.3 10 ^3/uL Eosinophils # (Auto) 0.1 0-0.8 10 ^3/uL Basophils # (Auto) 0 0-0.2 10 ^3/uL Nucleated Red Blood Cells 0.1 % Prothrombin Time 10.8 9.3-11.8 sec Prothrombin Time INR 1.02 0.9-1.15 Activated Partial Thromboplast Time 29.1 24.5-34.5 SEC Sodium Level 140 136-145 mmol/L Potassium Level 4.2 3.5-5.1 mmol/L Chloride Level 94 L 98-107 mmol/L Carbon Dioxide Level 39 H 20-31 mmol/L Anion Gap 7 5-15 Blood Urea Nitrogen 8 L 9-23 mg/dL Creatinine 0.76 0.700-1.30 mg/dL Glomerular Filtration Rate Calc 99 >90 mL/min BUN/Creatinine Ratio 10.5 10.0-20.0 Serum Glucose 160 H 74-106 mg/dL Calcium Level 10.4 8.7-10.4 mg/dL B-Type Natriuretic Peptide 64.34 0-100 pg/mL SEPSIS Sepsis Screen Date sepsis recognized/suspect: May 18, 2025 Time Sepsis recognized/suspect: 0839 Recent Procedure: No On Antibiotic Therapy: No Respiratory Rate >20: Yes Heart Rate >90: Yes Temp<36 C (96.8 F) or >38.3 C: Yes SBP <90 or MAP <65 mmHG: No New Acute Mental Status Change: No Is the patient on CPAP, BIPAP,: Yes Physician Orders Chest Portable (05/18/25 08:47) Electrocardigram (05/18/25 08:42) BIPAP (05/18/25 08:40) Accucheck (05/18/25 08:47) Blood Culture (05/18/25 08:47) Cefepime 1gm/50ml (Maxipime 1gm/50ml) (05/18/25 14:00) Notify Md If Map <65 Or Bp<90 (05/18/25 08:47) If Map<65 Start Vasopressor (05/18/25 08:47) Sepsis Reassesment After Fluid (05/18/25 09:47) Abg W/ Co-Ox (05/18/25 09:46) Nifedipine Er (Procardia Xl (Time-Releas (05/19/25 18:00) Abg W/ Co-Ox (05/18/25 15:00) Admit (05/18/25 16:11) Code Status (05/18/25 16:11) Hydrocodone-Acet 5/325mg Tab ([place] 5/32 (05/18/25 16:15) Ondansetron Hcl (Zofran) (05/18/25 16:15) Docusate Sodium Capsule (Colace Capsule) (05/18/25 16:15) Complete Blood Count (05/19/25 04:00) Comprehensive Metabolic Panel (05/19/25 04:00) Condition: Critical (05/18/25 16:11) Acetaminophen Tablet (Tylenol Tablet) (05/18/25 16:15) Nitroglycerin Sublingual (Ntrostat Subli (05/18/25 16:15) Morphine Sulfate Injection (05/18/25 16:15) Stat Ekg For Chest Pain (05/18/25 16:11) Notify Md Of Changes From Base (05/18/25 16:11) Crawler Tractor Operator For 24 Hours (05/18/25 16:11) Emergency Dysrhythmia Protocol (05/18/25 16:11) Rhythm Strips Once Every Shift (05/18/25 16:11) Oxygen By Nasal Cannula (05/18/25 16:11) Regular Diet (05/18/25 Dinner) Amiodarone Tablet (Cordarone Tablet) (05/19/25 10:00) (Nf) Bisoprolol Fumarate (05/18/25 22:00) (Nf) Sertraline Hcl (Zoloft) (05/19/25 10:00) (Nf) Tiotropium [place] Monohydrate (Spi (05/19/25 10:00) Vital Signs Date Time Temp Pulse Resp B/P (MAP) Pulse Ox O2 Delivery O2 Flow Rate FiO2 05/18/25 16:21 97 37 161/92 (115) 94 05/18/25 15:24 99.2 102 31 140/88 91 50 99.2 05/18/25 14:27 99.2 102 37 140/88 (105) 91 99.2 05/18/25 12:22 105 163/85 Facial BiPAP Mask 40 05/18/25 12:04 107 05/18/25 12:00 104 40 144/91 (108) 40 05/18/25 12:00 106 05/18/25 11:00 105 37 146/93 (110) 91 05/18/25 10:45 105 146/93 Facial BiPAP Mask 40 05/18/25 10:00 107 106/66 (79) 91 05/18/25 09:55 107 05/18/25 09:40 128 05/18/25 09:07 101.1 120 24 120/90 95 101.1 05/18/25 09:00 122 16 152/95 (114) 96 05/18/25 08:51 128 05/18/25 08:50 31 90 Bi-Pap+ 50 50 05/18/25 08:50 125 158/138 Facial BiPAP Mask 40 05/18/25 08:45 Bi-Pap+ 40 40 Laboratory Tests Test 05/18/25 08:50 05/18/25 11:50 Lactic Acid Level 1.8 mmol/L (0.4-2.0) 1.5 mmol/L (0.4-2.0) White Blood Count 9.4 10^3/uL (4.4-10.8) Medications Medications Dose Ordered Sig/Gagan Route Start Time Stop Time Status Last Admin Dose Admin Acetaminophen 1,000 mg DAILY STAT IV 05/18/25 08:47 05/18/25 08:49 DC 05/18/25 08:57 1,000 MG Albuterol 5 mg ONCE ONCE NEB 05/18/25 08:45 05/18/25 08:46 DC 05/18/25 08:50 5 MG Azithromycin 250 ml @ 125 mls/hr ONCE ONCE IV 05/18/25 11:15 05/18/25 13:14 DC 05/18/25 13:30 125 MLS/HR Cefepime HCl 50 ml @ 12.5 mls/hr Q8HR IV 05/18/25 14:00 05/18/25 15:35 12.5 MLS/HR Ipratropium [place] 0.5 mg ONCE ONCE NEB 05/18/25 08:45 05/18/25 08:46 DC 05/18/25 08:50 0.5 MG Methylprednisolone Sodium Succinate 62.5 mg ONCE ONCE IV 05/18/25 08:45 05/18/25 15:25 DC 05/18/25 08:53 62.5 MG Sodium Chloride 1,000 ml @ 1,000 mls/hr Q1H ONCE IV 05/18/25 09:00 05/18/25 09:59 DC 05/18/25 09:20 1,000 MLS/HR Sodium Chloride 1,000 ml @ 1,000 mls/hr Q1H ONCE IV 05/18/25 11:15 05/18/25 12:14 DC 05/18/25 11:15 1,000 MLS/HR Vancomycin HCl 250 ml @ 250 mls/hr ONCE ONCE IV 05/18/25 11:15 05/18/25 12:14 DC 05/18/25 11:55 250 MLS/HR Assessment/Plan Assessment/Plan Assessment: Acute respiratory failure with hypoxia, COPD exacerbation, Atrial Fibrillation, Asthma, Plan: Admit to [facility], BiPAP, IV steroids, Breathing treatments, IV antibiotics, IV magnesium, IV Lasix, Home medications reconciled, Plan discussed with: Patient My Orders Orders - DANICA LOPEZ [employer] Procedure Category Date Status Time Abg W/ Co-Ox RT 05/18/25 Logged 15:00 Admit ADMIT 05/18/25 Transmitted 16:11 Code Status CODE 05/18/25 Transmitted 16:11 Hydrocodone-Acet PHA 05/18/25 Transmitted 5/325mg Tab ([place] 16:15 Ondansetron Hcl PHA 05/18/25 Transmitted (Zofran) 16:15 Docusate Sodium PHA 05/18/25 Transmitted Capsule (Colace 16:15 Complete Blood Count LAB 05/19/25 Verified 04:00 Comprehensive LAB 05/19/25 Verified Metabolic Panel 04:00 Condition: Critical JUANITA 05/18/25 Transmitted 16:11 Acetaminophen Tablet PHA 05/18/25 Transmitted (Tylenol Tablet) 16:15 Nitroglycerin PHA 05/18/25 Transmitted Sublingual (Ntrostat 16:15 Morphine Sulfate PHA 05/18/25 Transmitted Injection 16:15 Stat Ekg For Chest JUANITA 05/18/25 In Process Pain 16:11 Notify Md Of Changes [facility] 05/18/25 In Process From Base 16:11 Crawler Tractor Operator For [facility] 05/18/25 In Process 24 Hours 16:11 Emergency Dysrhythmia [facility] 05/18/25 In Process Protocol 16:11 Rhythm Strips Once [facility] 05/18/25 In Process Every Shift 16:11 Oxygen By Nasal RT 05/18/25 Transmitted Cannula 16:11 Regular Diet DIET 05/18/25 Transmitted Dinner Amiodarone Tablet PHA 05/19/25 Transmitted (Cordarone Tablet) 10:00 (Nf) Bisoprolol PHA 05/18/25 Transmitted Fumarate 22:00 (Nf) Sertraline Hcl PHA 05/19/25 Transmitted (Zoloft) 10:00 (Nf) Tiotropium PHA 05/19/25 Transmitted [place] Monohydrate 10:00 Date of Service: May 18, 2025 Billing Provider: DANICA LOPEZ Common Visit Codes: [id number] INP/OBS CARE (HIGH) DANICA LOPEZ May 18, 2025 16:50
[2025-05-18 17:14] LABS: Base Excess 4.0 mmol/L (-2.0-3.0)
[2025-05-18] MEDS: MAGNESIUM SULFATE 1GM/100ML 100 ML IV SCH (18:06)
[2025-05-18 19:02] VITALS: BP 137/90; PULSE 94; RESP 24; O2SAT 97
[2025-05-18] MEDS: IPRATROPIUM BROM 0.5 MG/2.5ML INH SOL NEB SCH (19:02)
[2025-05-18] MEDS: ALBUTEROL SULF 2.5 MG/0.5ML(0.5%) NEB SOLN NEB SCH (19:02)
[2025-05-18] MEDS: FUROSEMIDE 40 MG/4 ML VIAL IV SCH (19:03)
[2025-05-18 19:08] VITALS: PULSE 92; RESP 18; O2SAT 98
[2025-05-18 19:30] VITALS: PULSE 97; RESP 22; O2SAT 97
[2025-05-18] MEDS: HYDROcodone-ACET 5/325MG TAB PO PRN (19:46)
[2025-05-18] MEDS: BISOPROLOL FUMARATE 5 MG PO SCH (22:00)
[2025-05-18] MEDS: methylPREDNISolone SOD SUCC 40 MG/ML VL IV SCH (22:22)
[2025-05-18 23:02] VITALS: BP 137/90; PULSE 105; O2SAT 94
[2025-05-18 23:20] LABS: Base Excess 11.7 mmol/L (-2.0-3.0)
[2025-05-19] VITALS (21 sets, daily range): BP systolic 108–130; BP diastolic 58–105; PULSE 71–148; RESP 12–27; TEMP 98.1–98.8; O2SAT 84–98
[2025-05-19 05:06] LABS: Hematocrit 37.9 % (41.0-53.0); Hemoglobin 12.2 g/dL (13.5-17.5); Mean Corpuscular Hemoglobin 29.8 pg (28.0-32.0); Mean Corpuscular Volume 92.5 fL (80.0-100.0); Nucleated Red Blood Cells % 0.0 %
[2025-05-19 05:23] LABS: Alanine Aminotransferase 16 U/L (7-40); Albumin 4.0 g/dL (3.2-4.8); Alkaline Phosphatase 61 U/L (46-116); Anion Gap 7 (5-15); BUN/Creatinine Ratio 16.7 (10.0-20.0); Blood Urea Nitrogen 12 mg/dL (9-23); Calcium 9.9 mg/dL (8.7-10.4); Magnesium 2.1 mg/dL (1.6-2.6); Potassium 4.4 mmol/L (3.5-5.1); Sodium 141 mmol/L (136-145); Total Protein 6.9 g/dL (5.7-8.2)
[2025-05-19 05:25] LABS: Bilirubin, Total 0.2 mg/dL (0.2-1.0); Carbon Dioxide 39 mmol/L (20-31); Chloride 95 mmol/L (98-107); Glucose 151 mg/dL (74-106)
--- NOTE | 2025-05-19 07:02 | ECG ---
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
[2025-05-19] MEDS: AMIODARONE BOLUS KIT 100 ML IV ONE ×2 (07:27→07:41)
[2025-05-19] MEDS: AMIODARONE 360mg/200mL PREMIX 200 ML IV ONE (07:41)
[2025-05-19] MEDS: AZITHROMYCIN 500MG/ 250ML 250 ML IV SCH (11:54)
[2025-05-19] MEDS: SERTRALINE HCL 50 MG TAB PO SCH (11:55)
[2025-05-19] MEDS: AMIODARONE HCL 200 MG TAB PO SCH (11:56)
--- NOTE | 2025-05-19 12:52 | DVHPN2 ---
Progress Note Date Seen: May 19, 2025 Medical Necessity Reason Pt with a Central, PICC or Fol: No Subjective Patient reports: No new complaints Review of Systems: HEENT:Normal, CVS:Normal, RESPIRATORY:Normal, GI:Normal, :Normal, MSK:Normal, NEURO:Normal Objective vital signs Vital Sign Date Time Temp Pulse Resp B/P (MAP) Pulse Ox O2 Delivery O2 Flow Rate FiO2 05/19/25 11:54 90 12 98 05/19/25 08:25 Bi-Pap+ 30 30 05/19/25 08:07 108/73 05/18/25 20:10 98.8 98.8 05/18/25 19:02 0 Total Intake and Output 05/18/25 05/18/25 05/19/25 15:00 23:00 07:00 Intake Total 2375 ml 275.0 ml 25.0 ml Balance 2375 ml 275.0 ml 25.0 ml medications Current Medications Medications Dose Ordered Sig/Gagan Route Start Time Stop Time Status Last Admin Dose Admin Cefepime HCl 50 ml @ 12.5 mls/hr Q8HR IV 05/18/25 14:00 05/19/25 06:17 12.5 MLS/HR Nifedipine 30 mg DAILY PO 05/19/25 18:00 Acetaminophen/ Hydrocodone Bitart 1 tab Q4HP PRN PO 05/18/25 16:15 05/19/25 11:55 1 TAB Ondansetron HCl 4 mg Q4HP PRN IV 05/18/25 16:15 Docusate Sodium 100 mg BIDPRN PRN PO 05/18/25 16:15 Acetaminophen 650 mg Q6HP PRN PO 05/18/25 16:15 Nitroglycerin 0.4 mg Q5MINP PRN SL 05/18/25 16:15 Morphine Sulfate 2 mg Q30M PRN IV 05/18/25 16:15 Amiodarone HCl 200 mg DAILY PO 05/19/25 10:00 05/19/25 11:56 200 MG Patient Own Medication 0.5 tab BID PO 05/18/25 22:00 Sertraline HCl 150 mg DAILY PO 05/19/25 10:00 05/19/25 11:55 150 MG Patient Own Medication 2 puff DAILY IN 05/19/25 10:00 Azithromycin 250 ml @ 125 mls/hr DAILY IV 05/19/25 10:00 05/19/25 11:54 125 MLS/HR Ipratropium [place] 0.5 mg Q6HWA [facility] 05/18/25 18:00 05/19/25 11:43 0.5 MG Albuterol 2.5 mg Q6HWA [facility] 05/18/25 18:00 05/19/25 11:43 2.5 MG Methylprednisolone Sodium Succinate 40 mg BID IV 05/18/25 22:00 05/19/25 11:54 40 MG Furosemide 40 mg BIDD IV 05/18/25 18:00 05/19/25 06:17 40 MG Amiodarone HCL/ Dextrose 200 ml @ 16.66 mls/ hr Q12H IV 05/19/25 13:15 Examination: GENERAL:Normal, HEENT:Normal, NECK:Normal, LUNGS:Normal, LUNGS:Abnormal (on oxygen, decreased bilateral), CVS:Normal, ABDOMEN:Normal, MSK:Normal, SKIN:Normal, NEURO:Normal, :Normal laboratory and microbiology Laboratory Tests 05/19/25 04:56 Test 05/19/25 04:56 Range/Units Serum Glucose 151 H 74-106 mg/dL Microbiology Date/Time Source Procedure Growth Status 05/18/25 09:00 Blood Blood Culture - Preliminary NO GROWTH AFTER 24 HOURS OF INCUBATION. Resulted Problem List/Assessment/Plan Problem List/Assessment/Plan #1 acute on chronic resp failure: cont oxygen, on bipap prn #2 copd with exacerbation: iv steroids #3 pneumonia - gram positive/neg: iv doxy #4 ? acute diastolic heart failure: lasix iv #5 a fib s/p ablation with secondary hypercoagulable state: pradaxa, bisoprolol #6 anxiety/depression #7 obesity Plan discussed with: Patient My Orders My Orders Orders - JOHN SMITH MD Procedure Category Date Status Time Furosemide Injection PHA 05/20/25 Logged (Lasix Injection) 10:00 Doxycycline PHA 05/19/25 Logged 100mg/100ml 12:45 Basic Metabolic Panel LAB 05/20/25 Verified 06:00 Complete Blood Count LAB 05/20/25 Verified 06:00 Magnesium LAB 05/20/25 Verified 05:00 Chest Portable XY 05/20/25 Logged 06:00 Critical Care Time (mins): 38 (critical care time excluding procedures is 38 mins) Date of Service: May 19, 2025 Billing Provider: JOHN SMITH MD Common Visit Codes: [id number] CARE 30-74 MIN JOHN SMITH MD May 19, 2025 12:52
[2025-05-19] MEDS: AMIODARONE 360mg/200mL PREMIX 200 ML IV SCH (13:51)
[2025-05-19] MEDS: DABIGATRAN 75 MG CAP PO ONE (14:12)
[2025-05-19] MEDS: DOXYCYCLINE 100MG/100ML 100 ML IV SCH (15:32)
[2025-05-19] MEDS: DABIGATRAN 75 MG CAP PO SCH (21:38)
[2025-05-20] VITALS (30 sets, daily range): BP systolic 122–164; BP diastolic 71–94; PULSE 70–89; RESP 12–22; TEMP 97.1–98.7; O2SAT 88–100
--- NOTE | 2025-05-20 00:44 | DVH ---
CHEST RADIOGRAPH Indication: COPD Technique: Single frontal view of the chest was obtained COMPARISON: XY CHEST PORTABLE on DOS: 05/18/25, XY CHEST PORTABLE on DOS: 02/28/25, XY CHEST PORTABLE on DOS: 02/14/25, CHEST PORTABLE on DOS: 12/01/21, CXRP on DOS: 12/01/21 FINDINGS: Mild patchy airspace disease at the right lung base that appears grossly similar. No new airspace dis ease. Cardiac silhouette and noah are within normal limits. Bones and soft tissues demonstrate no sig nificant abnormality. IMPRESSION: 1. Mild patchy airspace disease at the right lung base that appears grossly similar.
[2025-05-20 04:52] LABS: Hematocrit 37.1 % (41.0-53.0); Hemoglobin 12.0 g/dL (13.5-17.5); Mean Corpuscular Hemoglobin 29.9 pg (28.0-32.0); Mean Corpuscular Volume 92.6 fL (80.0-100.0); Nucleated Red Blood Cells % 0.0 %
[2025-05-20 04:55] LABS: Sodium 140 mmol/L (136-145)
[2025-05-20 04:56] LABS: Calcium 10.0 mg/dL (8.7-10.4)
[2025-05-20 05:01] LABS: Anion Gap 5.99999 (5-15); BUN/Creatinine Ratio 21.8 (10.0-20.0); Blood Urea Nitrogen 19 mg/dL (9-23); Chloride 94 mmol/L (98-107); Glucose 150 mg/dL (74-106); Potassium 5.2 mmol/L (3.5-5.1)
[2025-05-20 05:02] LABS: Magnesium 2.0 mg/dL (1.6-2.6)
[2025-05-20 05:04] LABS: Carbon Dioxide > 40 mmol/L (20-31)
[2025-05-20] MEDS: FUROSEMIDE 40 MG/4 ML VIAL IV SCH (10:35)
--- NOTE | 2025-05-20 14:38 | DVHPN2 ---
Progress Note Date Seen: May 20, 2025 Medical Necessity Reason Pt with a Central, PICC or Fol: No Subjective Patient reports: No new complaints Review of Systems: HEENT:Normal, CVS:Normal, RESPIRATORY:Normal, GI:Normal, :Normal, MSK:Normal, NEURO:Normal Objective vital signs Vital Sign Date Time Temp Pulse Resp B/P (MAP) Pulse Ox O2 Delivery O2 Flow Rate FiO2 05/20/25 14:00 98.8 104 16 140/87 (104) 89 98.8 05/20/25 12:10 Nasal Cannula* 6 44 Total Intake and Output 05/19/25 05/19/25 05/20/25 15:00 23:00 07:00 Intake Total 250 ml 166.64 ml 549.96 ml Output Total 300 ml 700 ml Balance -50 ml 166.64 ml -150.04 ml medications Current Medications Medications Dose Ordered Sig/Gagan Route Start Time Stop Time Status Last Admin Dose Admin Acetaminophen/ Hydrocodone Bitart 1 tab Q4HP PRN PO 05/18/25 16:15 05/20/25 12:54 1 TAB Ondansetron HCl 4 mg Q4HP PRN IV 05/18/25 16:15 Docusate Sodium 100 mg BIDPRN PRN PO 05/18/25 16:15 Acetaminophen 650 mg Q6HP PRN PO 05/18/25 16:15 Nitroglycerin 0.4 mg Q5MINP PRN SL 05/18/25 16:15 Morphine Sulfate 2 mg Q30M PRN IV 05/18/25 16:15 Amiodarone HCl 200 mg DAILY PO 05/19/25 10:00 Hold 05/19/25 11:56 200 MG Patient Own Medication 0.5 tab BID PO 05/18/25 22:00 Sertraline HCl 150 mg DAILY PO 05/19/25 10:00 05/20/25 10:36 150 MG Ipratropium [place] 0.5 mg Q6HWA NEB 05/18/25 18:00 05/20/25 12:08 0.5 MG Albuterol 2.5 mg Q6HWA NEB 05/18/25 18:00 05/20/25 12:08 2.5 MG Methylprednisolone Sodium Succinate 40 mg BID IV 05/18/25 22:00 05/20/25 10:35 40 MG Amiodarone HCL/ Dextrose 200 ml @ 16.66 mls/ hr Q12H IV 05/19/25 13:15 05/20/25 05:00 16.66 MLS/HR Furosemide 40 mg DAILY IV 05/20/25 10:00 05/20/25 10:35 40 MG Doxycycline Hyclate 100 ml @ 50 mls/hr Q12H IV 05/19/25 12:45 05/20/25 12:51 50 MLS/HR Dabigatran 150 mg BID PO 05/19/25 22:00 05/20/25 10:36 150 MG Examination: GENERAL:Normal, HEENT:Normal, NECK:Normal, LUNGS:Normal, LUNGS:Abnormal (on oxygen, decreased bilateral), CVS:Normal, ABDOMEN:Normal, MSK:Normal, SKIN:Normal, NEURO:Normal, :Normal laboratory and microbiology Laboratory Tests 05/20/25 03:58 Test 05/20/25 03:58 Range/Units Serum Glucose 150 H 74-106 mg/dL Microbiology Date/Time Source Procedure Growth Status 05/18/25 09:00 Blood Blood Culture - Preliminary NO GROWTH AFTER 48 HOURS OF INCUBATION. Resulted Problem List/Assessment/Plan Problem List/Assessment/Plan #1 acute on chronic resp failure: cont oxygen, on bipap prn #2 copd with exacerbation: iv steroids #3 pneumonia - gram positive/neg: iv doxy #4 ? acute diastolic heart failure: lasix #5 a fib s/p ablation with secondary hypercoagulable state: pradaxa, bisoprolol, amiodarone #6 anxiety/depression #7 obesity advance care planning- dni- time spent 19 mins Plan discussed with: Patient, Spouse My Orders My Orders Orders - JOHN SMITH MD Procedure Category Date Status Time Transfer Orders XFER 05/20/25 Transmitted 14:09 Date of Service: May 20, 2025 Billing Provider: JOHN SMITH MD Common Visit Codes: [id number] INP/OBS CARE(HIGH) Secondary Visit Codes: [id number] CARE PLAN 30 MINUTES JOHN SMITH MD May 20, 2025 14:38
[2025-05-20] MEDS ORDERED: LORazepam 2MG/ML-1ML VIAL IV PRN (14:45)
[2025-05-20] MEDS: LACTULOSE 20Gm/30ML SOLN PO ONE (14:45)
[2025-05-20] MEDS ORDERED: POLYETHYLENE GLYCOL 17 GM PWDR PO PRN (15:00)
[2025-05-20] MEDS: POLYETHYLENE GLYCOL 17 GM PWDR PO ONE (15:00)
[2025-05-20] MEDS: DOCUSATE SOD 100 MG CAP PO PRN (16:04)
[2025-05-20] MEDS: LACTULOSE 20Gm/30ML SOLN PO SCH (21:58)
[2025-05-21] VITALS (20 sets, daily range): BP systolic 99–158; BP diastolic 75–89; PULSE 73–98; RESP 17–22; TEMP 96.6–98.1; O2SAT 90–100
[2025-05-21 06:04] LABS: Hematocrit 36.5 % (41.0-53.0); Hemoglobin 11.8 g/dL (13.5-17.5); Mean Corpuscular Hemoglobin 29.6 pg (28.0-32.0); Mean Corpuscular Volume 91.8 fL (80.0-100.0); Nucleated Red Blood Cells % 0.1 %
[2025-05-21 06:10] LABS: Potassium 4.4 mmol/L (3.5-5.1); Sodium 140 mmol/L (136-145)
[2025-05-21 06:11] LABS: Calcium 9.8 mg/dL (8.7-10.4); Chloride 92 mmol/L (98-107)
[2025-05-21 06:12] LABS: Anion Gap 7.99999 (5-15)
[2025-05-21 06:13] LABS: Carbon Dioxide > 40 mmol/L (20-31)
[2025-05-21 06:16] LABS: BUN/Creatinine Ratio 24.1 (10.0-20.0); Blood Urea Nitrogen 20 mg/dL (9-23)
[2025-05-21 06:21] LABS: Glucose 136 mg/dL (74-106)
[2025-05-21 07:00] LABS: Base Excess 12.9 mmol/L (-2.0-3.0)
[2025-05-21] MEDS: FUROSEMIDE 40 MG TAB PO SCH (09:37)
--- NOTE | 2025-05-21 11:56 | DVHPN2 ---
Reviewed: Care Plan, H&P, Labs, Medications, Previous Orders, Radiology Changes from previous H/P or p: No Changes Eyes: No Pain, No Vision change, No Conjunctivae inflammation, No Eyelid inflammation, No Other, No Redness ENT: No Ear pain, No Ear discharge, No Nose pain, No Nose discharge, No Nose congestion, No Mouth pain, No Mouth swelling, No Throat pain, No Throat swelling, No Other Cardiovascular: No Chest Pain, No Palpitations, No Orthopnea, No Paroxysmal Noc. Dyspnea, No Edema, No Lt Headedness, No Other Respiratory: No Cough, No Dry; Shortness of breath, SOB with excertion, W heezing; No Hemoptysis, No Pleuritic Pain, No Sputum, No Other Gastrointestinal: No Nausea, No Vomiting, No Abdominal Pain, No Diarrhea, No Constipation, No Melena, No Hematochezia, No Other Genitourinary: No Dysuria, No Frequency, No Incontinence, No Hematuria, No Retention, No Other Musculoskeletal: No other, No neck pain, No shoulder pain, No arm pain, No back pain, No hand pain, No leg pain, No foot pain Skin: No Rash, No Lesions, No Jaundice, No Bruising, No Other Objective Vitals Vital Signs Date Time Temp Pulse Resp B/P (MAP) Pulse Ox O2 Delivery O2 Flow Rate FiO2 05/21/25 10:00 90 Nasal Cannula* 4 36 05/21/25 09:37 111/77 05/21/25 08:47 98.1 82 19 98.1 Intake/Output Intake and Output 05/21/25 07:00 Intake Total 1166.60 ml Output Total 675 ml Balance 491.60 ml Intake Oral 600 ml IV Total 566.60 ml Output Urine Total 675 ml # Voids 1 Medications Current Medications Medications Dose Ordered Sig/Gagan Route Start Time Stop Time Status Last Admin Dose Admin Acetaminophen/ Hydrocodone Bitart 1 tab Q4HP PRN PO 05/18/25 16:15 05/21/25 09:48 1 TAB Ondansetron HCl 4 mg Q4HP PRN IV 05/18/25 16:15 Docusate Sodium 100 mg BIDPRN PRN PO 05/18/25 16:15 05/20/25 16:04 100 MG Acetaminophen 650 mg Q6HP PRN PO 05/18/25 16:15 Nitroglycerin 0.4 mg Q5MINP PRN SL 05/18/25 16:15 Morphine Sulfate 2 mg Q30M PRN IV 05/18/25 16:15 Amiodarone HCl 200 mg DAILY PO 05/19/25 10:00 Hold 05/19/25 11:56 200 MG Patient Own Medication 0.5 tab BID PO 05/18/25 22:00 Sertraline HCl 150 mg DAILY PO 05/19/25 10:00 05/21/25 09:33 150 MG Ipratropium [place] 0.5 mg Q6HWA [facility] [place] 05/18/25 18:00 05/21/25 07:03 0.5 MG Albuterol 2.5 mg Q6HWA [facility] [place] 05/18/25 18:00 05/21/25 07:03 2.5 MG Methylprednisolone Sodium Succinate 40 mg BID IV 05/18/25 22:00 05/21/25 09:33 40 MG Amiodarone HCL/ Dextrose 200 ml @ 16.66 mls/ hr Q12H IV 05/19/25 13:15 05/21/25 04:50 16.66 MLS/HR Doxycycline Hyclate 100 ml @ 50 mls/hr Q12H IV 05/19/25 12:45 05/21/25 00:45 50 MLS/HR Dabigatran 150 mg BID PO 05/19/25 22:00 05/21/25 09:34 150 MG Lactulose 30 ml BID PO 05/20/25 22:00 Lorazepam 0.5 mg Q8HP PRN IV 05/20/25 14:45 Furosemide 40 mg DAILY PO 05/21/25 10:00 05/21/25 09:37 40 MG Polyethylene Glycol 17 gm DAILYPRN PRN PO 05/20/25 15:00 Laboratory Results Laboratory Tests 05/21/25 05:22 Chemistry Test 05/21/25 05:22 Calcium Level 9.8 mg/dL (8.7-10.4) Urinalysis Test 05/18/25 11:34 Urine Color Light-yellow (Yellow) Urine Clarity Clear (Clear) Urine pH 6.0 (5.0-9.0) Urine Specific [place] 1.016 (1.001-1.035) Urine Protein Negative (Negative) Urine Ketones Trace (Negative) Urine Blood Negative /uL (Negative) Urine Nitrite Negative (Negative) Urine Bilirubin Negative (Negative) Urine Urobilinogen Normal mg/dL (Negative) Urine Leukocyte Esterase Negative /uL (Negative) Urine RBC 1 /hpf (0 - 3) Urine Microscopic WBC 1 /HPF (0-3) Urine Squamous Epithelial Cells Few /hpf (<5) Urine Bacteria None seen /hpf (None Seen) Urine Glucose Normal mg/dL (Normal) Blood Gas Results Test 05/21/25 06:53 Arterial Blood pH 7.402 (7.350-7.450) FiO2 % 40.0 Microbiology Microbiology Date/Time Source Procedure Growth Status 05/18/25 09:00 Blood Blood Culture - Preliminary NO GROWTH AFTER 72 HOURS OF INCUBATION. Resulted Labs and/or images reviewed: Labs reviewed by me, Image(s) reviewed by me Assessment/Plan Assessment/Plan Covering for Dr. Franklin #1 acute on chronic resp failure: cont oxygen, on bipap prn #2 copd with exacerbation: iv steroids #3 pneumonia - gram positive/neg: iv doxy: Blood cultures negative #4 ? acute diastolic heart failure: lasix #5 a fib s/p ablation with secondary hypercoagulable state: pradaxa, bisoprolol, amiodarone #6 anxiety/depression #7 obesity Not stable for transfer to [place] Time Spent 65 minutes Advanced care planning time 20 minutes Patient is DNI Luciana at bedside Plan discussed with: Patient Date of Service: May 21, 2025 Billing Provider: SANGEETHA MOMIN MD Common Visit Codes: [id number] CARE 30-74 MIN SANGEETHA MOMIN MD May 21, 2025 11:56
[2025-05-21] MEDS: AMIODARONE 360mg/200mL PREMIX 200 ML IV SCH (18:14)
[2025-05-22] VITALS (16 sets, daily range): BP systolic 135–146; BP diastolic 79–93; PULSE 70–86; RESP 18–21; TEMP 97.4–98.1; O2SAT 91–98
--- NOTE | 2025-05-22 12:11 | DVHPN2 ---
Reviewed: Care Plan, H&P, Labs, Medications, Previous Orders, Radiology Changes from previous H/P or p: No Changes Eyes: No Pain, No Vision change, No Conjunctivae inflammation, No Eyelid inflammation, No Other, No Redness ENT: No Ear pain, No Ear discharge, No Nose pain, No Nose discharge, No Nose congestion, No Mouth pain, No Mouth swelling, No Throat pain, No Throat swelling, No Other Cardiovascular: No Chest Pain, No Palpitations, No Orthopnea, No Paroxysmal Noc. Dyspnea, No Edema, No Lt Headedness, No Other Respiratory: No Cough, No Dry; Shortness of breath, SOB with excertion, W heezing; No Hemoptysis, No Pleuritic Pain, No Sputum, No Other Gastrointestinal: No Nausea, No Vomiting, No Abdominal Pain, No Diarrhea, No Constipation, No Melena, No Hematochezia, No Other Genitourinary: No Dysuria, No Frequency, No Incontinence, No Hematuria, No Retention, No Other Musculoskeletal: No other, No neck pain, No shoulder pain, No arm pain, No back pain, No hand pain, No leg pain, No foot pain Skin: No Rash, No Lesions, No Jaundice, No Bruising, No Other Objective Vitals Vital Signs Date Time Temp Pulse Resp B/P (MAP) Pulse Ox O2 Delivery O2 Flow Rate FiO2 05/22/25 12:01 94 Nasal Cannula 5.0 05/22/25 12:01 40 05/22/25 12:01 81 18 05/22/25 10:06 144/91 05/22/25 09:00 98.0 98.0 Intake/Output Intake and Output 05/22/25 07:00 Intake Total 940 ml Output Total 950 ml Balance -10 ml Intake Oral 540 ml IV Total 400 ml Output Urine Total 950 ml Medications Current Medications Medications Dose Ordered Sig/Gagan Route Start Time Stop Time Status Last Admin Dose Admin Acetaminophen/ Hydrocodone Bitart 1 tab Q4HP PRN PO 05/18/25 16:15 05/22/25 10:32 1 TAB Ondansetron HCl 4 mg Q4HP PRN IV 05/18/25 16:15 Docusate Sodium 100 mg BIDPRN PRN PO 05/18/25 16:15 05/22/25 09:13 100 MG Acetaminophen 650 mg Q6HP PRN PO 05/18/25 16:15 Nitroglycerin 0.4 mg Q5MINP PRN SL 05/18/25 16:15 Morphine Sulfate 2 mg Q30M PRN IV 05/18/25 16:15 Amiodarone HCl 200 mg DAILY PO 05/19/25 10:00 Hold 05/19/25 11:56 200 MG Patient Own Medication 0.5 tab BID PO 05/18/25 22:00 Sertraline HCl 150 mg DAILY PO 05/19/25 10:00 05/22/25 09:13 150 MG Ipratropium [place] 0.5 mg Q6HWA [facility] 05/18/25 18:00 05/22/25 12:01 0.5 MG Albuterol 2.5 mg Q6HWA [facility] 05/18/25 18:00 05/22/25 12:01 2.5 MG Methylprednisolone Sodium Succinate 40 mg BID IV 05/18/25 22:00 05/22/25 09:14 40 MG Doxycycline Hyclate 100 ml @ 50 mls/hr Q12H IV 05/19/25 12:45 05/22/25 00:57 50 MLS/HR Dabigatran 150 mg BID PO 05/19/25 22:00 05/22/25 09:13 150 MG Lactulose 30 ml BID PO 05/20/25 22:00 Lorazepam 0.5 mg Q8HP PRN IV 05/20/25 14:45 Furosemide 40 mg DAILY PO 05/21/25 10:00 05/22/25 09:13 40 MG Polyethylene Glycol 17 gm DAILYPRN PRN PO 05/20/25 15:00 Amiodarone HCL/ Dextrose 200 ml @ 16.66 mls/ hr Q12H IV 05/21/25 18:15 05/22/25 06:31 16.66 MLS/HR Laboratory Results Laboratory Tests 05/21/25 05:22 Urinalysis Test 05/18/25 11:34 Urine Color Light-yellow (Yellow) Urine Clarity Clear (Clear) Urine pH 6.0 (5.0-9.0) Urine Specific [place] 1.016 (1.001-1.035) Urine Protein Negative (Negative) Urine Ketones Trace (Negative) Urine Blood Negative /uL (Negative) Urine Nitrite Negative (Negative) Urine Bilirubin Negative (Negative) Urine Urobilinogen Normal mg/dL (Negative) Urine Leukocyte Esterase Negative /uL (Negative) Urine RBC 1 /hpf (0 - 3) Urine Microscopic WBC 1 /HPF (0-3) Urine Squamous Epithelial Cells Few /hpf (<5) Urine Bacteria None seen /hpf (None Seen) Urine Glucose Normal mg/dL (Normal) Microbiology Microbiology Date/Time Source Procedure Growth Status 05/18/25 09:00 Blood Blood Culture - Preliminary NO GROWTH AFTER 72 HOURS OF INCUBATION. Resulted Labs and/or images reviewed: Labs reviewed by me, Image(s) reviewed by me Assessment/Plan Assessment/Plan Covering for Dr. Franklin #1 acute on chronic resp failure: cont oxygen, on bipap prn #2 copd with exacerbation: iv steroids #3 pneumonia - gram positive/neg: iv doxy: Blood cultures negative #4 ? acute diastolic heart failure: lasix #5 a fib s/p ablation with secondary hypercoagulable state: pradaxa, bisoprolol, amiodarone #6 anxiety/depression #7 obesity Not stable for transfer to [place] Time Spent 66 minutes Advanced care planning time 20 minutes Patient is DNI Luciana at bedside Plan discussed with: Patient Date of Service: May 22, 2025 Billing Provider: SANGEETHA MOMIN MD Common Visit Codes: [id number] INP/OBS CARE(HIGH) SANGEETHA MOMIN MD May 22, 2025 12:11
[2025-05-23] VITALS (16 sets, daily range): BP systolic 126–153; BP diastolic 67–83; PULSE 70–99; RESP 16–21; TEMP 97.6–98.6; O2SAT 83–99
--- NOTE | 2025-05-23 10:52 | DVHPN2 ---
Reviewed: Care Plan, H&P, Labs, Medications, Previous Orders, Radiology Changes from previous H/P or p: No Changes Eyes: No Pain, No Vision change, No Conjunctivae inflammation, No Eyelid inflammation, No Other, No Redness ENT: No Ear pain, No Ear discharge, No Nose pain, No Nose discharge, No Nose congestion, No Mouth pain, No Mouth swelling, No Throat pain, No Throat swelling, No Other Cardiovascular: No Chest Pain, No Palpitations, No Orthopnea, No Paroxysmal Noc. Dyspnea, No Edema, No Lt Headedness, No Other Respiratory: No Cough, No Dry; Shortness of breath, SOB with excertion, W heezing; No Hemoptysis, No Pleuritic Pain, No Sputum, No Other Gastrointestinal: No Nausea, No Vomiting, No Abdominal Pain, No Diarrhea, No Constipation, No Melena, No Hematochezia, No Other Genitourinary: No Dysuria, No Frequency, No Incontinence, No Hematuria, No Retention, No Other Musculoskeletal: No other, No neck pain, No shoulder pain, No arm pain, No back pain, No hand pain, No leg pain, No foot pain Skin: No Rash, No Lesions, No Jaundice, No Bruising, No Other Objective Vitals Vital Signs Date Time Temp Pulse Resp B/P (MAP) Pulse Ox O2 Delivery O2 Flow Rate FiO2 05/23/25 09:42 136/67 05/23/25 09:00 97.9 85 21 94 97.9 05/23/25 08:00 Nasal Cannula* 5 40 Intake/Output Intake and Output 05/23/25 07:00 Intake Total 1770 ml Output Total 400 ml Balance 1370 ml Intake Oral 1170 ml IV Total 600 ml Output Urine Total 400 ml # Voids 10 Medications Current Medications Medications Dose Ordered Sig/Gagan Route Start Time Stop Time Status Last Admin Dose Admin Acetaminophen/ Hydrocodone Bitart 1 tab Q4HP PRN PO 05/18/25 16:15 05/23/25 10:25 1 TAB Ondansetron HCl 4 mg Q4HP PRN IV 05/18/25 16:15 Docusate Sodium 100 mg BIDPRN PRN PO 05/18/25 16:15 05/22/25 09:13 100 MG Acetaminophen 650 mg Q6HP PRN PO 05/18/25 16:15 Nitroglycerin 0.4 mg Q5MINP PRN SL 05/18/25 16:15 Morphine Sulfate 2 mg Q30M PRN IV 05/18/25 16:15 Amiodarone HCl 200 mg DAILY PO 05/19/25 10:00 Hold 05/19/25 11:56 200 MG Patient Own Medication 0.5 tab BID PO 05/18/25 22:00 Sertraline HCl 150 mg DAILY PO 05/19/25 10:00 05/23/25 09:43 150 MG Ipratropium [place] 0.5 mg Q6HWA [facility] 05/18/25 18:00 05/23/25 06:21 0.5 MG Albuterol 2.5 mg Q6HWA [facility] 05/18/25 18:00 05/23/25 06:21 2.5 MG Methylprednisolone Sodium Succinate 40 mg BID IV 05/18/25 22:00 05/23/25 09:45 40 MG Doxycycline Hyclate 100 ml @ 50 mls/hr Q12H IV 05/19/25 12:45 05/23/25 00:34 50 MLS/HR Dabigatran 150 mg BID PO 05/19/25 22:00 05/23/25 09:44 150 MG Lactulose 30 ml BID PO 05/20/25 22:00 Lorazepam 0.5 mg Q8HP PRN IV 05/20/25 14:45 Furosemide 40 mg DAILY PO 05/21/25 10:00 05/23/25 09:42 40 MG Polyethylene Glycol 17 gm DAILYPRN PRN PO 05/20/25 15:00 Amiodarone HCL/ Dextrose 200 ml @ 16.66 mls/ hr Q12H IV 05/21/25 18:15 05/23/25 03:55 16.66 MLS/HR Laboratory Results Laboratory Tests 05/21/25 05:22 Urinalysis Test 05/18/25 11:34 Urine Color Light-yellow (Yellow) Urine Clarity Clear (Clear) Urine pH 6.0 (5.0-9.0) Urine Specific [place] 1.016 (1.001-1.035) Urine Protein Negative (Negative) Urine Ketones Trace (Negative) Urine Blood Negative /uL (Negative) Urine Nitrite Negative (Negative) Urine Bilirubin Negative (Negative) Urine Urobilinogen Normal mg/dL (Negative) Urine Leukocyte Esterase Negative /uL (Negative) Urine RBC 1 /hpf (0 - 3) Urine Microscopic WBC 1 /HPF (0-3) Urine Squamous Epithelial Cells Few /hpf (<5) Urine Bacteria None seen /hpf (None Seen) Urine Glucose Normal mg/dL (Normal) Microbiology Microbiology Date/Time Source Procedure Growth Status 05/18/25 09:00 Blood Blood Culture - Final NO GROWTH AFTER 5 DAYS OF INCUBATION. Complete Labs and/or images reviewed: Labs reviewed by me, Image(s) reviewed by me Assessment/Plan Assessment/Plan Covering for Dr. Franklin #1 acute on chronic resp failure: cont oxygen, on bipap prn #2 copd with exacerbation: iv steroids #3 pneumonia - gram positive/neg: iv doxy: Blood cultures negative #4 ? acute diastolic heart failure: lasix #5 a fib s/p ablation with secondary hypercoagulable state: pradaxa, bisoprolol, amiodarone #6 anxiety/depression #7 obesity Not stable for transfer to [place] Time Spent 50 minutes Advanced care planning time 20 minutes Patient is DNI Luciana at bedside Ordered CBC and CMP for Saturday Plan discussed with: Patient Date of Service: May 23, 2025 Billing Provider: SANGEETHA MOMIN MD Common Visit Codes: [id number] INP/OBS CARE(HIGH) SANGEETHA MOMIN MD May 23, 2025 10:52
[2025-05-24] VITALS (12 sets, daily range): BP systolic 140–152; BP diastolic 79–89; PULSE 64–78; RESP 14–20; TEMP 97.8–98.8; O2SAT 91–99
[2025-05-24 05:42] LABS: Hematocrit 36.6 % (41.0-53.0); Hemoglobin 12.1 g/dL (13.5-17.5); Mean Corpuscular Hemoglobin 30.0 pg (28.0-32.0); Mean Corpuscular Volume 91.1 fL (80.0-100.0); Nucleated Red Blood Cells % 0.0 %
[2025-05-24 05:58] LABS: Albumin 3.8 g/dL (3.2-4.8); Alkaline Phosphatase 58 U/L (46-116); Anion Gap 5 (5-15); BUN/Creatinine Ratio 28.4 (10.0-20.0); Calcium 9.1 mg/dL (8.7-10.4); Potassium 4.7 mmol/L (3.5-5.1); Sodium 138 mmol/L (136-145); Total Protein 6.1 g/dL (5.7-8.2)
[2025-05-24 05:59] LABS: Bilirubin, Total 0.3 mg/dL (0.2-1.0)
[2025-05-24 06:04] LABS: Alanine Aminotransferase 58 U/L (7-40); Blood Urea Nitrogen 23 mg/dL (9-23); Carbon Dioxide 38 mmol/L (20-31); Chloride 95 mmol/L (98-107); Glucose 141 mg/dL (74-106)
--- NOTE | 2025-05-24 11:53 | DVHDS2 ---
Discharge Summary Date of Admission May 18, 2025 at 16:11 Date of Discharge: May 24, 2025 Labs/Diagnostic Data: Laboratory Results Test 05/24/25 05:24 05/21/25 06:53 05/20/25 03:58 05/18/25 23:08 White Blood Count 10.5 10^3/uL (4.4-10.8) Red Blood Count 4.01 10^6/uL (4.5-5.90) Hemoglobin 12.1 g/dL (13.5-17.5) Hematocrit 36.6 % (41.0-53.0) Mean Corpuscular Volume 91.1 fL (80.0-100.0) Mean Corpuscular Hemoglobin 30.0 pg (28.0-32.0) Mean Corpuscular Hemoglobin Concent 33.0 g/dL (32.0-36.0) Red Cell Distribution Width 13.5 % (11.8-14.3) Platelet Count 322 10^3/uL (140-450) Mean Platelet Volume 8.3 fL (6.9-10.8) Neutrophils (%) (Auto) 93.9 % (37.0-80.0) Lymphocytes (%) (Auto) 3.4 % (10.0-50.0) Monocytes (%) (Auto) 2.5 % (0.0-12.0) Eosinophils (%) (Auto) 0.0 % (0.0-7.0) Basophils (%) (Auto) 0.2 % (0.0-2.0) Neutrophils # (Auto) 9.8 10 ^3/uL (1.6-8.6) Lymphocytes # (Auto) 0.4 10 ^3/uL (0.4-5.4) Monocytes # (Auto) 0.3 10 ^3/uL (0-1.3) Eosinophils # (Auto) 0 10 ^3/uL (0-0.8) Basophils # (Auto) 0 10 ^3/uL (0-0.2) Nucleated Red Blood Cells 0.0 % Sodium Level 138 mmol/L (136-145) Potassium Level 4.7 mmol/L (3.5-5.1) Chloride Level 95 mmol/L (98-107) Carbon Dioxide Level 38 mmol/L (20-31) Anion Gap 5 (5-15) Blood Urea Nitrogen 23 mg/dL (9-23) Creatinine 0.81 mg/dL (0.700-1.30) Glomerular Filtration Rate Calc 97 mL/min (>90) BUN/Creatinine Ratio 28.4 (10.0-20.0) Serum Glucose 141 mg/dL (74-106) Calcium Level 9.1 mg/dL (8.7-10.4) Total Bilirubin 0.3 mg/dL (0.2-1.0) Aspartate Amino Transferase (AST) 30 U/L (13-40) Alanine Aminotransferase (ALT) 58 U/L (7-40) Alkaline Phosphatase 58 U/L (46-116) Total Protein 6.1 g/dL (5.7-8.2) Albumin 3.8 g/dL (3.2-4.8) Blood Gas Specimen Type Arterial Blood Gas Sample Site Right radial Blood Gas Patient Temperature 37.0 Arterial Blood Date Drawn [id number] Arterial Blood pH 7.402 (7.350-7.450) Arterial Blood Partial Pressure CO2 66.5 mmHg (35.0-48.0) Arterial Blood Partial Pressure O2 86.0 mmHg (83.0-108.0) Arterial Blood HCO3 40.5 mmol/L (21.0-28.0) Arterial Blood Oxygen Saturation 96.5 % (94.0-98.0) Arterial Blood Base Excess 12.9 mmol/L (-2.0-3.0) Arterial Blood Oxyhemoglobin 95.4 % (94.0-98.0) Arterial Blood Carboxyhemoglobin 0.7 % (0.5-1.5) Arterial Blood Methemoglobin 0.4 % (0.0-1.5) Reji Test Yes Blood Gas Total Hemoglobin 12.80 g/dL (13.5-17.5) Blood Gas Set Respiration Rate 12.0 Blood Gas Modality Mask - bipap FiO2 % 40.0 Blood Gas EPAP 5 Blood Gas IPAP 14 Blood Gas Critical Value Read Back yes Blood Gas Notified Whom sandra espinoza Blood Gas Notified Time [id number] Blood Gas Notified By s iron worker norberto Magnesium Level 2.0 mg/dL (1.6-2.6) Blood Gas Spontaneous Rate 22 Test 05/18/25 11:50 05/18/25 11:34 05/18/25 08:50 Lactic Acid Level 1.5 mmol/L (0.4-2.0) Troponin I High Sensitivity 45 ng/L (</=54) Urine Color Light-yellow (Yellow) Urine Clarity Clear (Clear) Urine pH 6.0 (5.0-9.0) Urine Specific [place] 1.016 (1.001-1.035) Urine Protein Negative (Negative) Urine Ketones Trace (Negative) Urine Blood Negative /uL (Negative) Urine Nitrite Negative (Negative) Urine Bilirubin Negative (Negative) Urine Urobilinogen Normal mg/dL (Negative) Urine Leukocyte Esterase Negative /uL (Negative) Urine RBC 1 /hpf (0 - 3) Urine Microscopic WBC 1 /HPF (0-3) Urine Squamous Epithelial Cells Few /hpf (<5) Urine Bacteria None seen /hpf (None Seen) Urine Glucose Normal mg/dL (Normal) Prothrombin Time 10.8 sec (9.3-11.8) Prothrombin Time INR 1.02 (0.9-1.15) Activated Partial Thromboplast Time 29.1 SEC (24.5-34.5) B-Type Natriuretic Peptide 64.34 pg/mL (0-100) Other Laboratory Tests 05/24/25 05:24 Brief Hx & Hospital Course: see dictated note Condition at Discharge: Fair Final Diagnosis/Problems List copd Discharge Disposition: Home Discharge Instruct/Medications Diet: Cardiac 2g Na,low cholest Activity: No Restrictions, As Tolerated Follow Up/Referral: fu with pcp in 1 wk Medications: resume home meds script to pharmacy Scheduled Amiodarone HCl (Amiodarone HCl), 1 TAB PO DAILY, (Reported) Bisoprolol Fumarate (Bisoprolol Fumarate), 0.5 TAB PO BID, (Reported) Dabigatran Etexilate Mesylate (Dabigatran Etexilate), 1 CAP PO BID, (Reported) Enoxaparin Sodium (Lovenox), 0.4 ML SUBCUT DAILY, (Reported) Ergocalciferol (Vitamin D 00410 Unit), 50,000 UNIT PO QWEEKLY, (Reported) Sertraline Hcl (Zoloft), 150 MG PO DAILY, (Reported) Tiotropium [place] Monohydrate (Spiriva Respimat), 2 PUFF INH DAILY, (Reported) Scheduled PRN Hydrocodone-Acetaminophen (Hydrocodone Bitartrate/AC 10-325 mg), 1 TAB PO Q4HPRN PRN for PAIN SCALE 1 THRU 6, (Reported) Hydrocodone-Acetaminophen (Hydrocodone Bitartrate/AC 10-325 mg), 2 TAB PO Q6HPRN PRN for PAIN SCALE 7 THRU 10, (Reported) Miscellaneous Medications Albuterol Sulfate (Albuterol Sulfate Hfa), INH, (Reported) Discontinued Medications Azithromycin (Azithromycin), 1 TAB PO DAILY, (Reported) Bisoprolol Fumarate (Bisoprolol Fumarate), 0.5 TAB PO Q2HR, (Reported) Ciprofloxacin Hcl (Ciprofloxacin Hcl), 500 MG PO Q12HR, (Reported) Doxycycline Monohydrate (Doxycycline Monohydrate), 1 CAP PO BID Methylprednisolone (Medrol Dosepak), 4 MG PO UD Sertraline Hcl (Sertraline Hcl), TAB PO, (Reported) Discharge Statement: "Patient was advised to return to the ER or call 911 if any headaches, dizziness, shortness of breath, chest pain, abdominal pain, bleeding, fevers, or worsening of medical condition. Patient was counseled about treatment plan, medications, possible side effects, patientverbalized understanding. All questions were answered to the best of my ability. This discharge took greater then 30 minutes in planning, reviewing documentation, counseling the patient, and discussing with other team members." ASSESSMENT ASSESSMENT Assessment copd Date of Service: May 24, 2025 Billing Provider: JOHN SMITH MD Common Visit Codes: [id number] DISCH DAY >30min JOHN SMITH MD May 24, 2025 11:53
[2025-05-24] MEDS ORDERED: DOXY-286 PO (11:56)
[2025-05-24] MEDS ORDERED: PRED20TA2 PO (11:56)
--- NOTE | 2025-05-24 12:53 | DVHDS ---
DATE OF DISCHARGE: 05/24/2025 The patient is a 65-year-old gentleman who was admitted with history of increasing shortness of breath and has history of atrial fibrillation, COPD, respiratory failure, and asthma. HOSPITAL COURSE: The patient had severe hypoxia and shortness of breath. The patient was placed on BiPAP. His blood cultures were negative. His chest x-ray showed evidence of multifocal airspace disease. He was placed on intravenous antibiotics. The patient's symptoms are now improved. He will be discharged home to resume his home medications as well as to be on prednisone 20 mg daily for seven days and doxycycline 100 mg p.o. b.i.d. for five days. He will follow up with his primary in [place]. FINAL DIAGNOSES: * Acute on chronic respiratory failure. * COPD exacerbation. * Pneumonia, gram positive, gram negative. * Questionable acute diastolic heart failure. * History of atrial fibrillation with rapid ventricular rate with previous ablation. * Anxiety/depression. * Obesity. Time spent in discharge planning and review of plan with the patient and nursing was 38 minutes. MD LESIA Driscoll/CARLOS MANUEL TID: [id number] RECEIPT: [id number]
== END 2025-05-24 14:50 | disposition home or self-care (01) | DRG 208 ==
LOC: ER 08:38 → EDBD 08:38 → OVERFLOW 16:11 → TELE-WESTW 05-20 15:13
PROVIDERS: ADMIT Internal Medicine; ATTEND Internal Medicine
PROC: 5A09357 Assistance with Respiratory Ventilation, Less than 24 Consecutive Hours, Continuous Positive Airway Pressure (ICD-10-PCS; 2025-05-18)
PROC: 5A1935Z Respiratory Ventilation, Less than 24 Consecutive Hours (ICD-10-PCS; principal; 2025-05-19)
PROC: 5A09357 Assistance with Respiratory Ventilation, Less than 24 Consecutive Hours, Continuous Positive Airway Pressure (ICD-10-PCS; 2025-05-19)
PROC: 5A09357 Assistance with Respiratory Ventilation, Less than 24 Consecutive Hours, Continuous Positive Airway Pressure (ICD-10-PCS; 2025-05-20)
PROC: 5A09357 Assistance with Respiratory Ventilation, Less than 24 Consecutive Hours, Continuous Positive Airway Pressure (ICD-10-PCS; 2025-05-21)
PROC: 5A09357 Assistance with Respiratory Ventilation, Less than 24 Consecutive Hours, Continuous Positive Airway Pressure (ICD-10-PCS; 2025-05-22)
PROC: 5A09357 Assistance with Respiratory Ventilation, Less than 24 Consecutive Hours, Continuous Positive Airway Pressure (ICD-10-PCS; 2025-05-23)
PROC: 5A09357 Assistance with Respiratory Ventilation, Less than 24 Consecutive Hours, Continuous Positive Airway Pressure (ICD-10-PCS; 2025-05-24)
DX: J15.69 Pneumonia due to other Gram-negative bacteria (principal); J96.21 Acute and chronic respiratory failure with hypoxia; I50.31 Acute diastolic (congestive) heart failure; J44.1 Chronic obstructive pulmonary disease with (acute) exacerbation; J44.0 Chronic obstructive pulmonary disease with (acute) lower respiratory infection; D68.69 Other thrombophilia; I48.91 Unspecified atrial fibrillation; F32.A Depression, unspecified; F41.9 Anxiety disorder, unspecified; Z96.643 Presence of artificial hip joint, bilateral; E66.9 Obesity, unspecified; Z90.5 Acquired absence of kidney; Z99.81 Dependence on supplemental oxygen; Z68.29 Body mass index [BMI] 29.0-29.9, adult; J15.9 Unspecified bacterial pneumonia
CPT/HCPCS: 36415; 36600; 71045; 80048; 80053; 81001; 82805; 83605; 83735; 83880; 84484; 85025; 85610; 85730; 87040; 93005; 94640; 94660; 96361; 96365; 96366; 96367; 96375; 97110; 97116; 97163; 97530; 99291; 99292; G0378; J0131

== ENCOUNTER 2025-06-20 13:02 | Inpatient (IN) | payer OTHER ==
[~2025-06-20] VITALS: Ht 175.3 cm; Wt 109.0 kg
[~2025-06-20 13:02] MED LIST changes: -AZIT-43 PO; -CIPR500T4 PO; +DABI150C7 PO; -DOXY-267 PO; +DOXY-286 PO; -METH4PAK PO; +PRED20TA2 PO; -SERT-160 PO
[2025-06-20] MEDS: SODIUM CHLORIDE 0.9% 1,000 ML IV ONE ×2 (13:24→14:17)
[2025-06-20] MEDS: MAGNESIUM SULFATE 1GM/100ML 100 ML IV ONE (13:25)
--- NOTE | 2025-06-20 13:25 | ED.PDOC ---
SOB-HPI HPI Comments This is a 65-year-old male, with a PMHx of COPD, who presents to the ED via EMS with a chief complaint of SOB as of X2 days ago. Patient is currently on CPAP, initial saturation of 70, 90% with med nebulizer treatment. Patient was admitted x2 weeks ago for the same symptoms. Patient has no further complaints or modifying factors at this time. Chief Complaint: Shortness of Breath Time Seen by MD: 13:11 Reviewed notes: Broadcast Maintenance Technician Notes, Medications, Allergies Information Source: Emergency Med Personnel Mode of Arrival: EMS Severity: Moderate Timing: Hours Duration: Since onset Context: At Rest, With Light Exertion, With Heavy Exertion History of: COPD Prehospital treatment: 12 Lead EKG, Oxygen Past Medical History PAST MEDICAL HISTORY: AFIB, Asthma, COPD Surgical History: Denies all surgeries Family History Family History: Reviewed,noncontributory to illness, Unknown Social History Smoker: Non-Smoker Alcohol: Denies ETOH Use Drugs: Denies Drug Use Lives In: Home Constitutional: denies: chills, diaphoresis, fatigue, fever, malaise, sweats, weakness, others EENTM: denies: blurred vision, double vision, ear bleeding, ear discharge, ear drainage, ear pain, ear ringing, eye pain, eye redness, hearing loss, mouth pain, mouth swelling, nasal discharge, nose bleeding, nose congestion, nose pain, photophobia, tearing, throat pain, throat swelling, voice changes, others Respiratory: reports: SOB at rest, shortness of breath, SOB with excertion; denies: cough, hemoptysis, orthopnea, stridor, wheezing, others Cardiovascular: denies: chest pain, dizzy spells, diaphoresis, Dyspnea on exertion, edema, irregular heart beat, left arm pain, lightheadedness, palpitations, PND, syncope, others Gastrointestinal: denies: abdomen distended, abdominal pain, blood streaked bowels, constipated, diarrhea, dysphagia, difficulty swallowing, hematemesis, melena, nausea, poor appetite, poor fluid intake, rectal bleeding, rectal pain, vomiting, others Genitourinary: denies: burning, dysuria, flank pain, frequency, hematuria, incontinence, penile discharge, penile sore, pain, testicle pain, testicle swelling, urgency, others Neurological: denies: dizziness, fainting, headache, left sided numbness, left sided weakness, numbness, paresthesia, pre-existing deficit, right sided numbness, right sided weakness, seizure, speech problems, tingling, tremors, weakness, others Musculoskeletal: denies: back pain, gout, joint pain, joint swelling, muscle pain, muscle stiffness, neck pain, others Integumetry: denies: bruises, change in color, change in hair/nails, dryness, laceration, lesions, lumps, rash, wounds, others Allergic/Immunocompromised: denies: Difficulty Healing, Frequent Infections, Hives, Itching, others Hematologic/Lymphatic: denies: anemia, blood clots, easy bleeding, easy bruising, swollen glands, others Endocrine: denies: excessive hunger, excessive sweating, excessive thirst, excessive urination, flushing, intolerance to cold, intolerance to heat, unexplained weight gain, unexplained weight loss, others Psychiatric: denies: anxiety, bipolar disorder, depression, hopeless, panic disorder, schizophrenia, sleepless, suicidal, others All Other Systems: Reviewed and Negative Physical Exam General Appearance: Severe Distress HEENT: Normal ENT Inspection, Pharynx Normal, TMs Normal Neck: Full Range of Motion, Non-Tender, Normal, Normal Inspection Respiratory: Accessory Muscle Use, Respiratory Distress Cardiovascular: No Edema, No JVD, No Murmur, No Gallop, Normal Peripheral Pulses, Regular Rate/Rhythm Breast Exam: Deferred Gastrointestinal: No Organomegaly, Non Tender, No Pulsatile Mass, Normal Bowel Sounds, Soft Genitalia: Deferred Pelvic: Deferred Rectal: Deferred Extremities: No calf tenderness, No pedal edema Musculoskeletal : Apperance: Normal Neurologic: Alert, No Motor Deficits, No Sensory Deficits Cerebellar Function: NOT DONE Reflexes: NOT DONE Skin: Normal Color Peripheral Pulses: 3+ Radial (R), 3+ Radial (L) Lymphatic: No Adenopathy Was a procedure done? Was a procedure done?: No Differential Dx Differential Diagnosis: Anxiety, Asthma, Bronchitis, CHF, COPD, Pneumonia, Sinusitis, Allergic Rhinitis, Otitis Media X-Ray, Labs, Meds, VS Vital Signs Date Time Temp Pulse Resp B/P (MAP) Pulse Ox O2 Delivery O2 Flow Rate FiO2 06/20/25 15:11 94 Facial BiPAP Mask 50 06/20/25 13:33 39 96 Bi-Pap+ 50 50 06/20/25 13:08 98.7 99 21 155/77 96 98.7 06/20/25 13:07 98.7 96 22 155/77 (103) 99 98.7 06/20/25 13:05 95 155/77 Facial BiPAP Mask 50 Lab Test 06/20/25 14:20 06/20/25 13:10 Range/Units Blood Gas Specimen Type Arterial Blood Gas Sample Site Right radial Blood Gas Patient Temperature 37.0 Arterial Blood Date Drawn [id number] Arterial Blood pH 7.201 *L 7.350-7.450 Arterial Blood Partial Pressure CO2 95.0 *H 35.0-48.0 mmHg Arterial Blood Partial Pressure O2 80.8 L 83.0-108.0 mmHg Arterial Blood HCO3 36.4 H 21.0-28.0 mmol/L Arterial Blood Oxygen Saturation 94.1 94.0-98.0 % Arterial Blood Base Excess 5.1 H -2.0-3.0 mmol/L Arterial Blood Oxyhemoglobin 92.2 L 94.0-98.0 % Arterial Blood Carboxyhemoglobin 1.7 H 0.5-1.5 % Arterial Blood Methemoglobin 0.3 0.0-1.5 % Reji Test Yes Blood Gas Total Hemoglobin 13.40 L 13.5-17.5 g/dL Blood Gas Set Respiration Rate 14.0 Blood Gas Modality Mask - bipap FiO2 % 50.0 Blood Gas EPAP 6 Blood Gas IPAP 18 Blood Gas Critical Value Read Back Yes Blood Gas Notified Whom fatou Delgado md Blood Gas Notified Time [id number] Blood Gas Notified By vera Holden rrt White Blood Count 11.8 H 4.4-10.8 10^3/uL Red Blood Count 4.52 4.5-5.90 10^6/uL Hemoglobin 13.3 L 13.5-17.5 g/dL Hematocrit 42.1 41.0-53.0 % Mean Corpuscular Volume 93.1 80.0-100.0 fL Mean Corpuscular Hemoglobin 29.3 28.0-32.0 pg Mean Corpuscular Hemoglobin Concent 31.5 L 32.0-36.0 g/dL Red Cell Distribution Width 13.6 11.8-14.3 % Platelet Count 270 140-450 10^3/uL Mean Platelet Volume 8.2 6.9-10.8 fL Neutrophils (%) (Auto) 79.6 37.0-80.0 % Lymphocytes (%) (Auto) 9.8 L 10.0-50.0 % Monocytes (%) (Auto) 9.9 0.0-12.0 % Eosinophils (%) (Auto) 0.3 0.0-7.0 % Basophils (%) (Auto) 0.4 0.0-2.0 % Neutrophils # (Auto) 9.4 H 1.6-8.6 10 ^3/uL Lymphocytes # (Auto) 1.2 0.4-5.4 10 ^3/uL Monocytes # (Auto) 1.2 0-1.3 10 ^3/uL Eosinophils # (Auto) 0 0-0.8 10 ^3/uL Basophils # (Auto) 0 0-0.2 10 ^3/uL Nucleated Red Blood Cells 0.1 % Prothrombin Time 10.9 9.3-11.8 sec Prothrombin Time INR 1.03 0.9-1.15 Activated Partial Thromboplast Time 33.5 24.5-34.5 SEC Sodium Level 140 136-145 mmol/L Potassium Level 4.4 3.5-5.1 mmol/L Chloride Level 97 L 98-107 mmol/L Carbon Dioxide Level 36 H 20-31 mmol/L Anion Gap 7 5-15 Blood Urea Nitrogen 13 9-23 mg/dL Creatinine 0.72 0.700-1.30 mg/dL Glomerular Filtration Rate Calc 101 >90 mL/min BUN/Creatinine Ratio 18.1 10.0-20.0 Serum Glucose 130 H 74-106 mg/dL Lactic Acid Level 1.0 0.4-2.0 mmol/L Calcium Level 9.3 8.7-10.4 mg/dL Total Bilirubin 0.3 0.2-1.0 mg/dL Aspartate Amino Transferase (AST) 16 13-40 U/L Alanine Aminotransferase (ALT) 13 7-40 U/L Alkaline Phosphatase 83 46-116 U/L Total Protein 7.3 5.7-8.2 g/dL Albumin 4.3 3.2-4.8 g/dL Current Medications Medications (Trade) Dose Ordered Sig/Gagan Route Start Time Stop Time Status Last Admin Cefepime HCl 50 ml @ 12.5 mls/hr Q8HR IV 06/20/25 14:00 06/20/25 14:00 Azithromycin 250 ml @ 125 mls/hr ONCE ONCE IV 06/20/25 13:15 06/20/25 15:14 DC 06/20/25 14:17 Magnesium Sulfate/ Dextrose 100 ml @ 100 mls/hr ONCE ONCE IV 06/20/25 13:15 06/20/25 14:14 DC 06/20/25 13:25 Methylprednisolone Sodium Succinate (Solu Medrol) 125 mg ONCE ONCE IV 06/20/25 13:15 06/20/25 13:16 DC 06/20/25 13:50 Albuterol (Ventolin Medneb) 5 mg ONCE ONCE NEB 06/20/25 13:15 06/20/25 13:16 DC 06/20/25 13:33 Ipratropium [facility] (Atrovent Medneb) 0.5 mg ONCE ONCE NEB 06/20/25 13:15 06/20/25 13:16 DC 06/20/25 13:34 Sodium Chloride 1,000 ml @ 1,000 mls/hr Q1H ONCE IV 06/20/25 13:15 06/20/25 14:14 DC 06/20/25 13:24 Sodium Chloride 1,000 ml @ 150 mls/hr Q6H40M ONCE IV 06/20/25 13:15 06/20/25 19:54 06/20/25 14:17 [place] [address] Ph: [phone] DIAGNOSTIC IMAGING Diagnostic Imaging Report : [id number] Signed PATIENT: CHANEL RICHARDSONT: [id number] UNIT: [id number] : 1960 LOC: ER ROOM / BED: / AGE / SEX: 65 / M ADM STATUS: REG ER SERVICE 1306 ORDERING PHYSICIAN: RANULFO DELGADO MD PROCEDURE(s): CXRP - CHEST PORTABLE REASON: sob ORDER NUMBER(s): [id number], ACCESSION NUMBER(s): [id number] CHEST RADIOGRAPH Indication: sob Technique: Single frontal view of the chest was obtained Comparison: XY CHEST PORTABLE on DOS: 05/20/25, XY CHEST PORTABLE on DOS: 05/18/25, XY CHEST PORTABLE on DOS: 02/28/25 FINDINGS: Lines and Tubes: None Lungs: Patchy airspace disease right lower lung field unchanged. Appears to be developing airspace disease left cardiophrenic angle. Pleura: No effusion. No pneumothorax. Cardiomediastinal contours: Unremarkable Bones: No acute osseous abnormality. IMPRESSION: 1. Unimproved airspace disease right base. Worsening airspace disease left base. Patient alert. Complaining of shortness a breath. Came in on CPAP. History of COPD. Was seen here few weeks ago for which was diagnosed with pneumonia. Chest x-ray shows worsening. Was given steroid. Was given breathing treatment. Was given magnesium. ABG shows respiratory acidosis with retention of CO2. Explained to the family that he will need to be intubated. They do not want any intubation. They are very insists on not being intubated. Was given antibiotics. Continue monitoring. [place] approved inpatient admission [id number]. Time of 1ST Reevaluation: 14:24 Reevaluation 1ST: Unchanged Patient Education/Counseling: Diagnosis, Treatment Family Education/Counseling: No Family Present SEPSIS Sepsis Screen Date sepsis recognized/suspect: Jun 20, 2025 Time Sepsis recognized/suspect: 1310 Recent Procedure: No Respiratory Rate >20: Yes Heart Rate >90: No Temp<36 C (96.8 F) or >38.3 C: No SBP <90 or MAP <65 mmHG: No New Acute Mental Status Change: No Is the patient on CPAP, BIPAP,: No Physician Orders Urinalysis (06/20/25 13:06) Chest Portable (06/20/25 13:06) Accucheck (06/20/25 13:06) Blood Culture (06/20/25 13:06) Cefepime 1gm/50ml (Maxipime 1gm/50ml) (06/20/25 14:00) Notify Md If Map <65 Or Bp<90 (06/20/25 13:06) If Map<65 Start Vasopressor (06/20/25 13:06) Sepsis Reassesment After Fluid (06/20/25 14:06) Sodium Chloride 0.9% (06/20/25 13:15) Abg W/ Co-Ox (06/20/25 14:05) BIPAP (06/20/25 14:02) BIPAP (06/20/25 15:15) Abg W/ Co-Ox (06/20/25 16:00) Vital Signs Date Time Temp Pulse Resp B/P (MAP) Pulse Ox O2 Delivery O2 Flow Rate FiO2 06/20/25 15:11 94 Facial BiPAP Mask 50 06/20/25 13:33 39 96 Bi-Pap+ 50 50 06/20/25 13:08 98.7 99 21 155/77 96 98.7 06/20/25 13:07 98.7 96 22 155/77 (103) 99 98.7 06/20/25 13:05 95 155/77 Facial BiPAP Mask 50 Laboratory Tests Test 06/20/25 13:10 Lactic Acid Level 1.0 mmol/L (0.4-2.0) White Blood Count 11.8 10^3/uL (4.4-10.8) H Medications Medications Dose Ordered Sig/Gagan Route Start Time Stop Time Status Last Admin Dose Admin Albuterol 5 mg ONCE ONCE NEB 06/20/25 13:15 06/20/25 13:16 DC 06/20/25 13:33 Azithromycin 250 ml @ 125 mls/hr ONCE ONCE IV 06/20/25 13:15 06/20/25 15:14 DC 06/20/25 14:17 Cefepime HCl 50 ml @ 12.5 mls/hr Q8HR IV 06/20/25 14:00 06/20/25 14:00 Ipratropium [facility] 0.5 mg ONCE ONCE NEB 06/20/25 13:15 06/20/25 13:16 DC 06/20/25 13:34 Magnesium Sulfate/ Dextrose 100 ml @ 100 mls/hr ONCE ONCE IV 06/20/25 13:15 06/20/25 14:14 DC 06/20/25 13:25 Methylprednisolone Sodium Succinate 125 mg ONCE ONCE IV 06/20/25 13:15 06/20/25 13:16 DC 06/20/25 13:50 Sodium Chloride 1,000 ml @ 150 mls/hr Q6H40M ONCE IV 06/20/25 13:15 06/20/25 19:54 06/20/25 14:17 Sodium Chloride 1,000 ml @ 1,000 mls/hr Q1H ONCE IV 06/20/25 13:15 06/20/25 14:14 DC 06/20/25 13:24 Departure 1 Departure Time of Disposition: 14:55 Impression: Primary Impression: Acute respiratory failure with hypoxia Additional Impression: COPD with acute exacerbation Disposition: ADMITTED INPATIENT Admit to: Med Surg Condition: Guarded Critical Care Note Critical Care Time?: Yes (90 min-critical care time only) Stability Stability form required: No Heart Score Heart Score: Heart Score Response (Comments) Value History Moderate Suspicious 1 EKG N/A 0 Age >65 2 Risk Factors 1 or 2 risk factors 1 Troponin Normal limit 0 Total 4 I personally scribed for RANULFO DELGADO MD ([email or web address]) on 06/20/25 at 13:25. Electronically submitted by Jessica Adrian ([email or web address]). I personally scribed for RANULFO DELGADO MD ([email or web address]) on 06/20/25 at 13:26. Electronically submitted by Jessica Adrian ([email or web address]). I personally scribed for RANULFO DELGADO MD ([email or web address]) on 06/20/25 at 13:28. Electronically submitted by Jessica Adrian ([email or web address]). I personally scribed for RANULFO DELGADO MD ([email or web address]) on 06/20/25 at 13:55. Electronically submitted by Jessica Adrian ([email or web address]). RANULFO DELGADO MD Jun 20, 2025 13:25
[2025-06-20] MEDS: ALBUTEROL SULF 2.5 MG/0.5ML(0.5%) NEB SOLN NEB ONE (13:33)
[2025-06-20] MEDS: IPRATROPIUM BROM 0.5 MG/2.5ML INH SOL NEB ONE (13:34)
[2025-06-20 13:48] LABS: Hematocrit 42.1 % (41.0-53.0); Hemoglobin 13.3 g/dL (13.5-17.5); Mean Corpuscular Hemoglobin 29.3 pg (28.0-32.0); Mean Corpuscular Volume 93.1 fL (80.0-100.0); Nucleated Red Blood Cells % 0.1 %
--- NOTE | 2025-06-20 13:48 | DVH ---
CHEST RADIOGRAPH Indication: sob Technique: Single frontal view of the chest was obtained Comparison: XY CHEST PORTABLE on DOS: 05/20/25, XY CHEST PORTABLE on DOS: 05/18/25, XY CHEST PORTABLE o n DOS: 02/28/25 FINDINGS: Lines and Tubes: None Lungs: Patchy airspace disease right lower lung field unchanged. Appears to be developing airspace di sease left cardiophrenic angle. Pleura: No effusion. No pneumothorax. Cardiomediastinal contours: Unremarkable Bones: No acute osseous abnormality. IMPRESSION: 1. Unimproved airspace disease right base. Worsening airspace disease left base.
[2025-06-20] MEDS: methylPREDNISolone SOD SUCC 125 MG/2 ML VL IV ONE (13:50)
[2025-06-20] MEDS: CEFEPIME 1GM/50ML 50 ML IV SCH (14:00)
[2025-06-20 14:01] LABS: Alanine Aminotransferase 13 U/L (7-40); Albumin 4.3 g/dL (3.2-4.8); Alkaline Phosphatase 83 U/L (46-116); Anion Gap 7 (5-15); BUN/Creatinine Ratio 18.1 (10.0-20.0); Blood Urea Nitrogen 13 mg/dL (9-23); Calcium 9.3 mg/dL (8.7-10.4); Potassium 4.4 mmol/L (3.5-5.1); Sodium 140 mmol/L (136-145); Total Protein 7.3 g/dL (5.7-8.2)
[2025-06-20 14:02] LABS: Bilirubin, Total 0.3 mg/dL (0.2-1.0); Carbon Dioxide 36 mmol/L (20-31); Chloride 97 mmol/L (98-107); Glucose 130 mg/dL (74-106); INR 1.03 (0.9-1.15); Partial Thromboplastin Time 33.5 SEC (24.5-34.5); Prothrombin Time 10.9 sec (9.3-11.8)
[2025-06-20] MEDS: AZITHROMYCIN 500MG/ 250ML 250 ML IV ONE (14:17)
[2025-06-20 14:47] LABS: Base Excess 5.1 mmol/L (-2.0-3.0)
[2025-06-20 15:49] VITALS: BP 155/77; PULSE 94; RESP 36; TEMP 98.7; O2SAT 96
[2025-06-20 16:17] LABS: Base Excess 4.7 mmol/L (-2.0-3.0)
--- NOTE | 2025-06-20 17:20 | DVHHPRES ---
History of Present Illness Resident Creating Document: ASHER SALOMON RESIDENT History of Present Illness Saul Bajwa is a 65-year-old male patient who presents to ED with chief complaint of dyspnea, productive cough with green/yellowish phlegm, slurred speech, jerky movements which initiated a proximally one week ago but progressively got worse, with evidence of desaturation (pulse ox at home measure 53 % oxygenation), prompting evaluation by EMS to bring him to the ED. Patient has had multiple similar episodes with diagnosis of COPD exacerbation/pneumonia. Last admission due to COPD exacerbation was six weeks ago. Patient is a DNR/DNI. Denies any other associated symptoms. Past medical history: COPD with requirement of home oxygen with 6 L/min and BiPAP as tolerated, paroxysmal atrial fibrillation status post ablation 15 years ago (chads Vasc 1), kidney cancer status post right nephrectomy in 2009, anxiety Surgical history: Ablation, right-sided nephrectomy, right ankle surgery Family history: Noncontributory Social history: Lives in [place] with ([id number]/nystatin kin). Ex tobacco abuse (60 pack-year history of smoking quit approximately 20 years ago. Drinks 5-6 beers a day, has been drinking less due to dyspnea. Denies current tobacco, alcohol and other drug abuse. Allergies: Denies Home medication: Prednisone and azithromycin which was indicated six weeks ago, sertraline, bisoprolol, amiodarone, dabigatran, Spiriva, Combivent, Breo. Patient seen and examined at bedside. Currently on BiPAP, with respiratory distress. Completed ABG which showed respiratory acidosis, on admission patient was more confused than during my evaluation, initially patient and family were prompted of patient's critical clinical status, that he required endotracheal intubation, but family clearly states patient is DNR/DNI code status. Patient was admitted to D for further management. Past Medical History Per HPI Past Surgical History Per HPI Family History Per HPI Past Social History Per HPI Review of Systems Review of Systems Per HPI Allergies: Coded Allergies: NO KNOWN ALLERGIES (Unverified , 12/01/21) Medications Current Medications Medications Dose Ordered Sig/Gagan Route Start Time Stop Time Status Last Admin Dose Admin Cefepime HCl 50 ml @ 12.5 mls/hr Q8HR IV 06/20/25 14:00 06/20/25 14:00 12.5 MLS/HR Exam Vital Signs Vital Signs Date Time Temp Pulse Resp B/P (MAP) Pulse Ox O2 Delivery O2 Flow Rate FiO2 06/20/25 16:20 87 147/117 Facial BiPAP Mask 50 06/20/25 16:05 18 96 06/20/25 15:49 98.7 98.7 Exam Patient lying in bed, in mild acute distress General: Lucid, afebrile, mucosae are dry Cardiovascular: Distant heart sounds, Normal S1 and S2. No murmurs, gallops or rubs Respiratory: Regular ventilation mechanics, tachypnea, uses accessory muscles of breathing. Absent lung sounds. Currently on BiPAP with FiO2 50% Abdomen: Soft, nontender, no organomegaly, normal bowel sounds MSK/skin: Mobilizes 4 limbs. Skin is dry and warm Neurological: Oriented in 3 spheres. No motor no sensitive deficits. Pupils are isocoric and reactive Labs/Xrays Labs Test 06/20/25 16:06 06/20/25 13:10 Range/Units Blood Gas Specimen Type Arterial Blood Gas Sample Site Right radial Blood Gas Patient Temperature 37.0 Arterial Blood Date Drawn [id number] Arterial Blood pH 7.248 *L 7.350-7.450 Arterial Blood Partial Pressure CO2 81.2 *H 35.0-48.0 mmHg Arterial Blood Partial Pressure O2 89.8 83.0-108.0 mmHg Arterial Blood HCO3 34.6 H 21.0-28.0 mmol/L Arterial Blood Oxygen Saturation 96.1 94.0-98.0 % Arterial Blood Base Excess 4.7 H -2.0-3.0 mmol/L Arterial Blood Oxyhemoglobin 93.9 L 94.0-98.0 % Arterial Blood Carboxyhemoglobin 1.8 H 0.5-1.5 % Arterial Blood Methemoglobin 0.5 0.0-1.5 % Reji Test Yes Blood Gas Total Hemoglobin 13.20 L 13.5-17.5 g/dL Blood Gas Set Respiration Rate 14.0 Blood Gas Modality Mask - bipap FiO2 % 50.0 Blood Gas EPAP 6 Blood Gas IPAP 20 Blood Gas Critical Value Read Back Yes Blood Gas Notified Whom fatou Rachel md Blood Gas Notified Time [id number] Blood Gas Notified By vera Holden rrt White Blood Count 11.8 H 4.4-10.8 10^3/uL Red Blood Count 4.52 4.5-5.90 10^6/uL Hemoglobin 13.3 L 13.5-17.5 g/dL Hematocrit 42.1 41.0-53.0 % Mean Corpuscular Volume 93.1 80.0-100.0 fL Mean Corpuscular Hemoglobin 29.3 28.0-32.0 pg Mean Corpuscular Hemoglobin Concent 31.5 L 32.0-36.0 g/dL Red Cell Distribution Width 13.6 11.8-14.3 % Platelet Count 270 140-450 10^3/uL Mean Platelet Volume 8.2 6.9-10.8 fL Neutrophils (%) (Auto) 79.6 37.0-80.0 % Lymphocytes (%) (Auto) 9.8 L 10.0-50.0 % Monocytes (%) (Auto) 9.9 0.0-12.0 % Eosinophils (%) (Auto) 0.3 0.0-7.0 % Basophils (%) (Auto) 0.4 0.0-2.0 % Neutrophils # (Auto) 9.4 H 1.6-8.6 10 ^3/uL Lymphocytes # (Auto) 1.2 0.4-5.4 10 ^3/uL Monocytes # (Auto) 1.2 0-1.3 10 ^3/uL Eosinophils # (Auto) 0 0-0.8 10 ^3/uL Basophils # (Auto) 0 0-0.2 10 ^3/uL Nucleated Red Blood Cells 0.1 % Prothrombin Time 10.9 9.3-11.8 sec Prothrombin Time INR 1.03 0.9-1.15 Activated Partial Thromboplast Time 33.5 24.5-34.5 SEC Sodium Level 140 136-145 mmol/L Potassium Level 4.4 3.5-5.1 mmol/L Chloride Level 97 L 98-107 mmol/L Carbon Dioxide Level 36 H 20-31 mmol/L Anion Gap 7 5-15 Blood Urea Nitrogen 13 9-23 mg/dL Creatinine 0.72 0.700-1.30 mg/dL Glomerular Filtration Rate Calc 101 >90 mL/min BUN/Creatinine Ratio 18.1 10.0-20.0 Serum Glucose 130 H 74-106 mg/dL Lactic Acid Level 1.0 0.4-2.0 mmol/L Calcium Level 9.3 8.7-10.4 mg/dL Total Bilirubin 0.3 0.2-1.0 mg/dL Aspartate Amino Transferase (AST) 16 13-40 U/L Alanine Aminotransferase (ALT) 13 7-40 U/L Alkaline Phosphatase 83 46-116 U/L Total Protein 7.3 5.7-8.2 g/dL Albumin 4.3 3.2-4.8 g/dL SEPSIS Sepsis Screen Date sepsis recognized/suspect: Jun 20, 2025 Time Sepsis recognized/suspect: 1310 Recent Procedure: No Respiratory Rate >20: Yes Heart Rate >90: No Temp<36 C (96.8 F) or >38.3 C: No SBP <90 or MAP <65 mmHG: No New Acute Mental Status Change: No Is the patient on CPAP, BIPAP,: No Physician Orders Urinalysis (06/20/25 13:06) Chest Portable (06/20/25 13:06) Accucheck (06/20/25 13:06) Blood Culture (06/20/25 13:06) Cefepime 1gm/50ml (Maxipime 1gm/50ml) (06/20/25 14:00) Notify Md If Map <65 Or Bp<90 (06/20/25 13:06) If Map<65 Start Vasopressor (06/20/25 13:06) Sepsis Reassesment After Fluid (06/20/25 14:06) Sodium Chloride 0.9% (06/20/25 13:15) Abg W/ Co-Ox (06/20/25 14:05) BIPAP (06/20/25 14:02) BIPAP (06/20/25 15:15) Abg W/ Co-Ox (06/20/25 16:00) Vital Signs Date Time Temp Pulse Resp B/P (MAP) Pulse Ox O2 Delivery O2 Flow Rate FiO2 06/20/25 16:20 87 147/117 Facial BiPAP Mask 50 06/20/25 16:05 85 18 147/117 (127) 96 06/20/25 15:49 98.7 94 36 155/77 96 50 98.7 06/20/25 15:11 94 Facial BiPAP Mask 50 06/20/25 13:33 39 96 Bi-Pap+ 50 50 06/20/25 13:08 98.7 99 21 155/77 96 98.7 06/20/25 13:07 98.7 96 22 155/77 (103) 99 98.7 06/20/25 13:05 95 155/77 Facial BiPAP Mask 50 Laboratory Tests Test 06/20/25 13:10 Lactic Acid Level 1.0 mmol/L (0.4-2.0) White Blood Count 11.8 10^3/uL (4.4-10.8) H Medications Medications Dose Ordered Sig/Gagan Route Start Time Stop Time Status Last Admin Dose Admin Albuterol 5 mg ONCE ONCE NEB 06/20/25 13:15 06/20/25 13:16 DC 06/20/25 13:33 5 MG Azithromycin 250 ml @ 125 mls/hr ONCE ONCE IV 06/20/25 13:15 06/20/25 15:14 DC 06/20/25 14:17 125 MLS/HR Cefepime HCl 50 ml @ 12.5 mls/hr Q8HR IV 06/20/25 14:00 06/20/25 14:00 12.5 MLS/HR Ipratropium [facility] 0.5 mg ONCE ONCE NEB 06/20/25 13:15 06/20/25 13:16 DC 06/20/25 13:34 0.5 MG Magnesium Sulfate/ Dextrose 100 ml @ 100 mls/hr ONCE ONCE IV 06/20/25 13:15 06/20/25 14:14 DC 06/20/25 13:25 100 MLS/HR Methylprednisolone Sodium Succinate 125 mg ONCE ONCE IV 06/20/25 13:15 06/20/25 13:16 DC 06/20/25 13:50 125 MG Sodium Chloride 1,000 ml @ 150 mls/hr Q6H40M ONCE IV 06/20/25 13:15 06/20/25 19:54 06/20/25 14:17 150 MLS/HR Sodium Chloride 1,000 ml @ 1,000 mls/hr Q1H ONCE IV 06/20/25 13:15 06/20/25 14:14 DC 06/20/25 13:24 1,000 MLS/HR Assessment/Plan Assessment/Plan ASSESSMENT Acute on chronic hypoxic/hypercapnic respiratory failure Hypercapnic encephalopathy Community-acquired pneumonia Gram positive/Gram-negative COPD exacerbation Emphysema Respiratory acidosis Simple hyperglycemia Obesity History of kidney cancer status post right nephrectomy Paroxysmal atrial fibrillation (chads Vasc 1)-hypercoagulability state status post ablation Anxiety PLAN Patient on admission was more confused, presented slurred speech and showed respiratory acidosis. Patient is a DNR/DNI, accepts noninvasive ventilation with BiPAP. Currently on BiPAP. If patient does not respond to noninvasive treatment, we will indicate comfort measures. Currently under empiric IV antibiotic (cefepime and vancomycin) Ordered tan cultures and respiratory swabs On oxygen therapy, bronchodilators and IV steroids Goals of care discussed with patient and family ( and daughter) for over 18 minutes: DNR/DNI (modified since they do accept noninvasive ventilation). Discussed plan with Dr. Karimi, patient and nurses: Patient admitted to [facility] status. On BiPAP with high requirement of FiO2. On oxygen therapy, bronchodilators, IV antibiotics and IV steroids. Patient has poor prognosis. Critical care time spent including discussion with nursing and family, excluding procedures: 79 minutes Plan discussed with: Patient, Spouse, Daughter, Other (Nurses) Date of Service: Jun 20, 2025 Billing Provider: TAYO KARIMI MD Common Visit Codes: [id number] INP/OBS CARE (HIGH) Secondary Visit Codes: [id number] CARE PLAN 30 MINUTES ASHER SALOMON RESIDENT Jun 20, 2025 17:20
[2025-06-20 17:28] VITALS: BP 150/77; PULSE 87; O2SAT 94
[2025-06-20] MEDS ORDERED: VANCOMYCIN PER PHARMACY 0 MG IV SCH (17:30)
[2025-06-20] MEDS ORDERED: VANCOMYCIN 1GM/250ML KIT 250 ML IV ONE (17:30)
[2025-06-20] MEDS ORDERED: ONDANSETRON HCL 4 MG/2 ML VIAL IV PRN (17:30)
[2025-06-20] MEDS ORDERED: MORPHINE SULFATE INJ 2 MG/ml SYRG IV PRN (17:30)
[2025-06-20] MEDS: LEVALBUTEROL HCL 1.25 MG/3 ML NEB NEB SCH (18:15)
[2025-06-20 18:16] LABS: Magnesium 1.9 mg/dL (1.6-2.6); Triglycerides 131.0 mg/dL (< 150)
[2025-06-20] MEDS: IPRATROPIUM BROM 0.5 MG/2.5ML INH SOL NEB SCH (18:16)
[2025-06-20 18:18] LABS: Cholesterol 187.0 mg/dL (< 200)
[2025-06-20 18:36] LABS: HDL Cholesterol 84.0 mg/dL (40-59)
[2025-06-20] MEDS: VANCOMYCIN 1GM/250ML KIT 250 ML IV SCH (18:44)
[2025-06-20 19:54] VITALS: PULSE 89; RESP 13; O2SAT 93
[2025-06-20 20:08] LABS: COVID19 ANTIGEN SOFIA FIA NEGATIVE (NEGATIVE)
[2025-06-20 20:14] VITALS: BP 138/81; PULSE 87; O2SAT 92
[2025-06-20] MEDS: methylPREDNISolone SOD SUCC 40 MG/ML VL IV SCH (21:11)
[2025-06-20 21:39] LABS: Base Excess 6.1 mmol/L (-2.0-3.0)
[2025-06-20 21:56] VITALS: BP 126/74; PULSE 81; O2SAT 95
[2025-06-20] MEDS ORDERED: ENOXAPARIN SOD 100 MG/1 ML SYRINGE SC SCH (22:00)
[2025-06-20] MEDS: ENOXAPARIN SOD 100 MG/1 ML SYRINGE SC SCH (22:12)
[2025-06-21] VITALS (37 sets, daily range): BP systolic 96–140; BP diastolic 57–96; PULSE 71–105; RESP 10–31; TEMP 97.2–98.1; O2SAT 88–98
[2025-06-21 03:56] LABS: Hematocrit 37.1 % (41.0-53.0); Hemoglobin 12.1 g/dL (13.5-17.5); Mean Corpuscular Hemoglobin 30.2 pg (28.0-32.0); Mean Corpuscular Volume 93.0 fL (80.0-100.0); Nucleated Red Blood Cells % 0.0 %
[2025-06-21 04:22] LABS: Alanine Aminotransferase 13 U/L (7-40); Albumin 4.0 g/dL (3.2-4.8); Alkaline Phosphatase 73 U/L (46-116); Anion Gap 8 (5-15); BUN/Creatinine Ratio 19.0 (10.0-20.0); Blood Urea Nitrogen 12 mg/dL (9-23); Calcium 9.2 mg/dL (8.7-10.4); Chloride 100 mmol/L (98-107); Potassium 4.9 mmol/L (3.5-5.1); Sodium 140 mmol/L (136-145); Total Protein 6.7 g/dL (5.7-8.2)
[2025-06-21 04:33] LABS: Bilirubin, Total 0.2 mg/dL (0.2-1.0); Carbon Dioxide 32 mmol/L (20-31); Glucose 146 mg/dL (74-106)
[2025-06-21] MEDS: HYDROcodone-ACET 5/325MG TAB PO PRN (07:49)
[2025-06-21 08:39] LABS: Base Excess 7.1 mmol/L (-2.0-3.0)
[2025-06-21] MEDS ORDERED: ENOXAPARIN SOD 40 MG/0.4 ML SYRINGE SC SCH (10:00)
[2025-06-21] MEDS: AMIODARONE HCL 200 MG TAB PO SCH (10:30)
[2025-06-21] MEDS: SERTRALINE HCL 50 MG TAB PO SCH (10:30)
[2025-06-21] MEDS: ENOXAPARIN SOD 120 MG/0.8 ML SYRINGE SC SCH (10:31)
--- NOTE | 2025-06-21 11:01 | DVHPN2 ---
Progress Note Date Seen: Jun 21, 2025 Medical Necessity Reason Pt with a Central, PICC or Fol: No Subjective Patient reports: No new complaints Review of Systems: HEENT:Normal, CVS:Normal, RESPIRATORY:Normal, GI:Normal, :Normal, MSK:Normal, NEURO:Normal Objective vital signs Vital Sign Date Time Temp Pulse Resp B/P (MAP) Pulse Ox O2 Delivery O2 Flow Rate FiO2 06/21/25 09:37 78 14 90 Oxymizer 6 N/A 06/21/25 09:15 97.2 115/95 (102) 97.2 Total Intake and Output 06/20/25 06/20/25 06/21/25 15:00 23:00 07:00 Intake Total 162.5 ml 2125.0 ml 62.5 ml Output Total 260 ml Balance 162.5 ml 2125.0 ml -197.5 ml medications Current Medications Medications Dose Ordered Sig/Gagan Route Start Time Stop Time Status Last Admin Dose Admin Cefepime HCl 50 ml @ 12.5 mls/hr Q8HR IV 06/20/25 14:00 06/21/25 05:18 12.5 MLS/HR Acetaminophen 325 mg Q4HP PRN PO 06/20/25 17:30 Ondansetron HCl 4 mg Q4HP PRN IV 06/20/25 17:30 Morphine Sulfate 2 mg Q4HPRN PRN IV 06/20/25 17:30 Methylprednisolone Sodium Succinate 40 mg Q8HR IV 06/20/25 22:00 06/21/25 05:18 40 MG Levalbuterol HCl 0.625 mg Q6HR NEB 06/20/25 18:00 06/21/25 07:01 0.625 MG Ipratropium [place] 0.5 mg Q6HWA [facility] 06/20/25 18:00 06/21/25 07:01 0.5 MG Vancomycin HCl 0 ml @ 0 mls/hr PER PHARMACY IV 06/20/25 17:30 Amiodarone HCl 200 mg DAILY PO 06/21/25 10:00 06/21/25 10:30 200 MG Sertraline HCl 50 mg DAILY PO 06/21/25 10:00 06/21/25 10:30 50 MG Acetaminophen/ Hydrocodone Bitart 1 tab Q4HPRN PRN PO 06/21/25 07:45 06/21/25 07:49 1 TAB Enoxaparin Sodium 110 mg Q12HR SC 06/21/25 10:00 06/21/25 10:31 110 MG Vancomycin HCl 250 ml @ 250 mls/hr Q8H IV 06/21/25 12:00 UNV Examination: GENERAL:Normal, HEENT:Normal, NECK:Normal, LUNGS:Normal, LUNGS:Abnormal (no oxygmizer, bipap), CVS:Normal, ABDOMEN:Normal, MSK:Normal, SKIN:Normal, NEURO:Normal, :Normal laboratory and microbiology Laboratory Tests 06/21/25 03:37 Test 06/21/25 03:37 Range/Units Serum Glucose 146 H 74-106 mg/dL Problem List/Assessment/Plan Problem List/Assessment/Plan * Acute on chronic respiratory failure: bipap as needed * COPD exacerbation: iv steroids * Pneumonia, gram positive, gram negative: iv cefepime * Questionable acute diastolic heart failure. * History of atrial fibrillation with rapid ventricular rate with previous ablation: lovenox/ amiodarone * Anxiety/depression. * Obesity. Plan discussed with: Patient My Orders My Orders Orders - JOHN SMITH MD Procedure Category Date Status Time Sertraline Hcl PHA 06/22/25 Transmitted (Zoloft) 10:00 Regular Diet DIET 06/21/25 Transmitted Lunch Urinalysis LAB 06/21/25 Uncollected 10:53 Basic Metabolic Panel LAB 06/22/25 Verified 06:00 Complete Blood Count LAB 06/22/25 Verified 06:00 Magnesium LAB 06/22/25 Verified 05:00 Critical Care Time (mins): 41 (critical care time excluding procedures is 41 mins) Date of Service: Jun 21, 2025 Billing Provider: JOHN SMITH MD Common Visit Codes: [id number] CARE 30-74 MIN JOHN SMITH MD Jun 21, 2025 11:01
[2025-06-21 11:12] LABS: Base Excess 7.2 mmol/L (-2.0-3.0)
[2025-06-21] MEDS ORDERED: VANCOMYCIN 1GM/250ML KIT 250 ML IV SCH (12:00)
[2025-06-21 13:32] LABS: Urine Protein, UAD 1+ (Negative)
[2025-06-21 13:41] LABS: Benzodiazephine Screen, Urine Pos (NEGATIVE); Opiate Scree,Urine Neg (NEGATIVE); Phencyclidine Screen, Urine Neg (NEGATIVE)
[2025-06-21 13:43] LABS: Amphetamine Screen, Urine Neg (NEGATIVE); Barbiturate Scree,Urine Neg (NEGATIVE); Cannabinoid Screen, Urine Neg (NEGATIVE); Cocaine Screen, Urine Neg (NEGATIVE)
[2025-06-21] MEDS: MELATONIN 5 MG TAB PO SCH (21:39)
[2025-06-22] VITALS (28 sets, daily range): BP systolic 99–169; BP diastolic 64–78; PULSE 65–114; RESP 12–22; TEMP 97.5–98.6; O2SAT 86–99
[2025-06-22] MEDS: ACETAMINOPHEN 325 MG TAB PO PRN (02:45)
[2025-06-22 06:11] LABS: Hematocrit 36.6 % (41.0-53.0); Hemoglobin 11.8 g/dL (13.5-17.5); Mean Corpuscular Hemoglobin 29.7 pg (28.0-32.0); Mean Corpuscular Volume 92.3 fL (80.0-100.0); Nucleated Red Blood Cells % 0.1 %
[2025-06-22 06:21] LABS: Chloride 99 mmol/L (98-107); Potassium 4.7 mmol/L (3.5-5.1); Sodium 141 mmol/L (136-145)
[2025-06-22 06:22] LABS: Anion Gap 5 (5-15); Calcium 9.0 mg/dL (8.7-10.4)
[2025-06-22 06:27] LABS: BUN/Creatinine Ratio 23.8 (10.0-20.0); Blood Urea Nitrogen 19 mg/dL (9-23); Magnesium 2.1 mg/dL (1.6-2.6)
[2025-06-22 06:31] LABS: Carbon Dioxide 37 mmol/L (20-31); Glucose 139 mg/dL (74-106)
[2025-06-22] MEDS: SERTRALINE HCL 50 MG TAB PO SCH (09:32)
--- NOTE | 2025-06-22 10:41 | DVHPN2 ---
Progress Note Date Seen: Jun 22, 2025 Medical Necessity Reason Pt with a Central, PICC or Fol: No Subjective Patient reports: No new complaints Review of Systems: HEENT:Normal, CVS:Normal, RESPIRATORY:Normal, GI:Normal, :Normal, MSK:Normal, NEURO:Normal Objective vital signs Vital Sign Date Time Temp Pulse Resp B/P (MAP) Pulse Ox O2 Delivery O2 Flow Rate FiO2 06/22/25 08:00 98.0 74 22 122/70 (87) 96 98.0 06/22/25 08:00 Nasal Cannula* 6 44 Total Intake and Output 06/21/25 06/21/25 06/22/25 14:59 22:59 06:59 Intake Total 87.5 ml 800 ml 550 ml Output Total 300 ml 425 ml Balance 87.5 ml 500 ml 125 ml medications Current Medications Medications Dose Ordered Sig/Gagan Route Start Time Stop Time Status Last Admin Dose Admin Cefepime HCl 50 ml @ 12.5 mls/hr Q8HR IV 06/20/25 14:00 06/22/25 06:04 12.5 MLS/HR Acetaminophen 325 mg Q4HP PRN PO 06/20/25 17:30 06/22/25 02:45 325 MG Ondansetron HCl 4 mg Q4HP PRN IV 06/20/25 17:30 Morphine Sulfate 2 mg Q4HPRN PRN IV 06/20/25 17:30 Methylprednisolone Sodium Succinate 40 mg Q8HR IV 06/20/25 22:00 06/22/25 06:04 40 MG Levalbuterol HCl 0.625 mg Q6HR NEB 06/20/25 18:00 06/22/25 05:40 0.625 MG Ipratropium [place] 0.5 mg Q6HWA [facility] 06/20/25 18:00 06/22/25 05:40 0.5 MG Amiodarone HCl 200 mg DAILY PO 06/21/25 10:00 06/22/25 09:33 200 MG Acetaminophen/ Hydrocodone Bitart 1 tab Q4HPRN PRN PO 06/21/25 07:45 06/22/25 09:55 1 TAB Enoxaparin Sodium 110 mg Q12HR SC 06/21/25 10:00 06/22/25 09:32 110 MG Vancomycin HCl 250 ml @ 250 mls/hr Q8H IV 06/21/25 12:00 UNV Sertraline HCl 100 mg DAILY PO 06/22/25 10:00 06/22/25 09:32 100 MG Melatonin 10 mg HS PO 06/21/25 22:00 06/21/25 21:39 10 MG Examination: GENERAL:Normal, HEENT:Normal, NECK:Normal, LUNGS:Normal, LUNGS:Abnormal (on oxymizer, bipap), CVS:Normal, ABDOMEN:Normal, MSK:Normal, SKIN:Normal, NEURO:Normal, :Normal laboratory and microbiology Laboratory Tests 06/22/25 05:09 Test 06/22/25 05:09 Range/Units Serum Glucose 139 H 74-106 mg/dL Microbiology Date/Time Source Procedure Growth Status 06/21/25 08:04 Nose MRSA Screen - Final Complete 06/20/25 13:20 Blood Blood Culture - Preliminary NO GROWTH AFTER 24 HOURS OF INCUBATION. Resulted Problem List/Assessment/Plan Problem List/Assessment/Plan * Acute on chronic respiratory failure: bipap as needed * COPD exacerbation: steroids * Pneumonia, gram positive, gram negative: iv cefepime * Questionable acute diastolic heart failure. * History of atrial fibrillation with rapid ventricular rate with previous ablation: lovenox/ amiodarone * Anxiety/depression. * Obesity. unstable for transfer Plan discussed with: Patient My Orders My Orders Orders - JOHN SMITH MD Procedure Category Date Status Time Sertraline Hcl PHA 06/22/25 In Process (Zoloft) 10:00 Regular Diet DIET 06/21/25 Transmitted Lunch Bipap/Cpap For Sleep RT 06/21/25 Logged Apnea 10:56 Melatonin (Melatonin) PHA 06/21/25 In Process 22:00 Dabigatran Capsule PHA 06/22/25 Transmitted (Pradaxa Capsule) 22:00 Prednisone Tablet PHA 06/23/25 Transmitted 10:00 Chest Portable XY 06/23/25 Transmitted 06:00 Transfer Orders XFER 06/22/25 Transmitted 10:36 Critical Care Time (mins): 36 (critical care time excluding procedures is 36 mins) Date of Service: Jun 22, 2025 Billing Provider: JOHN SMITH MD Common Visit Codes: [id number] CARE 30-74 MIN JOHN SMITH MD Jun 22, 2025 10:40
[2025-06-22] MEDS: DABIGATRAN 75 MG CAP PO SCH (21:12)
[2025-06-23] VITALS (9 sets, daily range): BP systolic 122–150; BP diastolic 63–79; PULSE 61–98; RESP 16–18; TEMP 97.2–98.4; O2SAT 92–100
--- NOTE | 2025-06-23 05:53 | DVH ---
CHEST RADIOGRAPH Indication: pneumonia Technique: Single frontal view of the chest was obtained COMPARISON: XY CHEST PORTABLE on DOS: 06/20/25, XY CHEST PORTABLE on DOS: 05/20/25, XY CHEST PORTABLE on DOS: 05/18/25, XY CHEST PORTABLE on DOS: 02/28/25, XY CHEST PORTABLE on DOS: 02/14/25 FINDINGS: Lines and Tubes: None Lungs: Clear Pleura: No effusion. No pneumothorax. Cardiomediastinal contours: Unremarkable Bones: Unremarkable IMPRESSION: 1. No acute disease.
[2025-06-23] MEDS: predniSONE 20 MG TAB PO SCH (09:19)
--- NOTE | 2025-06-23 09:58 | DVHDS2 ---
Discharge Summary Date of Admission Jun 20, 2025 at 17:20 Date of Discharge: Jun 23, 2025 Labs/Diagnostic Data: Laboratory Results Test 06/22/25 05:09 06/21/25 13:01 06/21/25 11:04 06/21/25 08:27 White Blood Count 12.7 10^3/uL (4.4-10.8) Red Blood Count 3.97 10^6/uL (4.5-5.90) Hemoglobin 11.8 g/dL (13.5-17.5) Hematocrit 36.6 % (41.0-53.0) Mean Corpuscular Volume 92.3 fL (80.0-100.0) Mean Corpuscular Hemoglobin 29.7 pg (28.0-32.0) Mean Corpuscular Hemoglobin Concent 32.1 g/dL (32.0-36.0) Red Cell Distribution Width 13.9 % (11.8-14.3) Platelet Count 273 10^3/uL (140-450) Mean Platelet Volume 8.2 fL (6.9-10.8) Neutrophils (%) (Auto) 92.1 % (37.0-80.0) Lymphocytes (%) (Auto) 3.7 % (10.0-50.0) Monocytes (%) (Auto) 4.1 % (0.0-12.0) Eosinophils (%) (Auto) 0.0 % (0.0-7.0) Basophils (%) (Auto) 0.1 % (0.0-2.0) Neutrophils # (Auto) 11.7 10 ^3/uL (1.6-8.6) Lymphocytes # (Auto) 0.5 10 ^3/uL (0.4-5.4) Monocytes # (Auto) 0.5 10 ^3/uL (0-1.3) Eosinophils # (Auto) 0 10 ^3/uL (0-0.8) Basophils # (Auto) 0 10 ^3/uL (0-0.2) Nucleated Red Blood Cells 0.1 % Sodium Level 141 mmol/L (136-145) Potassium Level 4.7 mmol/L (3.5-5.1) Chloride Level 99 mmol/L (98-107) Carbon Dioxide Level 37 mmol/L (20-31) Anion Gap 5 (5-15) Blood Urea Nitrogen 19 mg/dL (9-23) Creatinine 0.80 mg/dL (0.700-1.30) Glomerular Filtration Rate Calc 98 mL/min (>90) BUN/Creatinine Ratio 23.8 (10.0-20.0) Serum Glucose 139 mg/dL (74-106) Calcium Level 9.0 mg/dL (8.7-10.4) Magnesium Level 2.1 mg/dL (1.6-2.6) Urine Color Yellow (Yellow) Urine Clarity Clear (Clear) Urine pH 6.0 (5.0-9.0) Urine Specific [place] 1.034 (1.001-1.035) Urine Protein 1+ (Negative) Urine Ketones 1+ (Negative) Urine Blood Negative /uL (Negative) Urine Nitrite Negative (Negative) Urine Bilirubin Negative (Negative) Urine Urobilinogen Normal mg/dL (Negative) Urine Leukocyte Esterase Negative /uL (Negative) Urine RBC 3 /hpf (0 - 3) Urine Microscopic WBC 1 /HPF (0-3) Urine Squamous Epithelial Cells None seen /hpf (<5) Urine Bacteria Few /hpf (None Seen) Urine Mucus Few (None Seen) Urine Glucose Normal mg/dL (Normal) Urine Opiates Screen Neg (NEGATIVE) Urine Fentanyl Screen Neg (NEGATIVE) Urine Barbiturates Screen Neg (NEGATIVE) Urine Phencyclidine Screen Neg (NEGATIVE) Urine Amphetamines Screen Neg (NEGATIVE) Urine Benzodiazepines Screen Pos (NEGATIVE) Urine Cocaine Screen Neg (NEGATIVE) Urine Cannabinoids Screen Neg (NEGATIVE) Blood Gas Specimen Type Arterial Blood Gas Sample Site Left radial Blood Gas Patient Temperature 37.0 Arterial Blood Date Drawn [id number] Arterial Blood pH 7.379 (7.350-7.450) Arterial Blood Partial Pressure CO2 59.0 mmHg (35.0-48.0) Arterial Blood Partial Pressure O2 61.9 mmHg (83.0-108.0) Arterial Blood HCO3 34.0 mmol/L (21.0-28.0) Arterial Blood Oxygen Saturation 92.1 % (94.0-98.0) Arterial Blood Base Excess 7.2 mmol/L (-2.0-3.0) Arterial Blood Oxyhemoglobin 90.4 % (94.0-98.0) Arterial Blood Carboxyhemoglobin 1.4 % (0.5-1.5) Arterial Blood Methemoglobin 0.4 % (0.0-1.5) Reji Test Yes Blood Gas Total Hemoglobin 12.40 g/dL (13.5-17.5) Blood Gas Liter Flow 6.00 Blood Gas Modality Oxymizer FiO2 % 52.0 Blood Gas Set Respiration Rate 14.0 Blood Gas EPAP 6 Blood Gas IPAP 20 Blood Gas Critical Value Read Back Yes Blood Gas Notified 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 Test 06/21/25 03:37 06/20/25 19:04 06/20/25 18:35 06/20/25 13:10 Total Bilirubin 0.2 mg/dL (0.2-1.0) Aspartate Amino Transferase (AST) 14 U/L (13-40) Alanine Aminotransferase (ALT) 13 U/L (7-40) Alkaline Phosphatase 73 U/L (46-116) Total Protein 6.7 g/dL (5.7-8.2) Albumin 4.0 g/dL (3.2-4.8) Random Vancomycin Level 15.6 ug/mL (5-10) Influenza Type A Antigen Negative (Negative) Influenza Type B Antigen Negative (Negative) SARS-CoV-2 Antigen (Rapid) Negative (NEGATIVE) Lactic Acid Level 0.7 mmol/L (0.4-2.0) Prothrombin Time 10.9 sec (9.3-11.8) Prothrombin Time INR 1.03 (0.9-1.15) Activated Partial Thromboplast Time 33.5 SEC (24.5-34.5) Hemoglobin A1c 5.3 % A1C (<5.7) Phosphorus Level 2.8 mg/dL (2.4-5.1) Triglycerides Level 131 mg/dL (< 150) Cholesterol Level 187 mg/dL (< 200) LDL Cholesterol 79 mg/dL (< 100) HDL Cholesterol 84 mg/dL (40-59) Vitamin B12 Level 850 pg/mL (211-911) Vitamin D 25-Hydroxy 66.4 ng/mL (30.0-100) Thyroid Stimulating Hormone (TSH) 0.35 uIU/mL (0.55-4.78) Other Laboratory Tests 06/22/25 05:09 Brief Hx & Hospital Course: SEE DICTATED NOTE Condition at Discharge: Fair Final Diagnosis/Problems List COPD Discharge Disposition: Home Discharge Instruct/Medications Diet: Cardiac 2g Na,low cholest Activity: No Restrictions, As Tolerated Follow Up/Referral: FU WITH [facility] Medications: RESUME HOME MEDS SCRIPT TO PHARMACY Scheduled Amiodarone HCl (Amiodarone HCl), 1 TAB PO DAILY, (Reported) Bisoprolol Fumarate (Bisoprolol Fumarate), 0.5 TAB PO BID, (Reported) Dabigatran Etexilate Mesylate (Dabigatran Etexilate), 1 CAP PO BID, (Reported) Doxycycline Hyclate (Doxycycline Hyclate), 100 MG PO BID Enoxaparin Sodium (Lovenox), 0.4 ML SUBCUT DAILY, (Reported) Ergocalciferol (Vitamin D 84352 Unit), 50,000 UNIT PO QWEEKLY, (Reported) Prednisone (Prednisone), 20 MG PO QAM Sertraline Hcl (Zoloft), 150 MG PO DAILY, (Reported) Tiotropium [place] Monohydrate (Spiriva Respimat), 2 PUFF INH DAILY, (Reported) Scheduled PRN Hydrocodone-Acetaminophen (Hydrocodone Bitartrate/AC 10-325 mg), 1 TAB PO Q4HPRN PRN for PAIN SCALE 1 THRU 6, (Reported) Hydrocodone-Acetaminophen (Hydrocodone Bitartrate/AC 10-325 mg), 2 TAB PO Q6HPRN PRN for PAIN SCALE 7 THRU 10, (Reported) Miscellaneous Medications Albuterol Sulfate (Albuterol Sulfate Hfa), INH, (Reported) Discharge Statement: "Patient was advised to return to the ER or call 911 if any headaches, dizziness, shortness of breath, chest pain, abdominal pain, bleeding, fevers, or worsening of medical condition. Patient was counseled about treatment plan, medications, possible side effects, patientverbalized understanding. All questions were answered to the best of my ability. This discharge took greater then 30 minutes in planning, reviewing documentation, counseling the patient, and discussing with other team members." ASSESSMENT ASSESSMENT Assessment COPD Date of Service: Jun 23, 2025 Billing Provider: JOHN SMITH MD Common Visit Codes: [id number]/OBS DISCH DAY >30min JOHN SMITH MD Jun 23, 2025 09:58
[2025-06-23] MEDS ORDERED: CEFU500T43 PO (10:07)
[2025-06-23] MEDS ORDERED: PRED10TA PO (10:07)
[2025-06-23] MEDS ORDERED: PRED20TA2 PO (10:07)
--- NOTE | 2025-06-23 12:18 | DVHDS ---
DATE OF DISCHARGE: 06/23/2025 HISTORY OF PRESENT ILLNESS: The patient is a 65-year-old gentleman who is admitted with a history of increasing shortness of breath, cough, and low oxygen saturations. He has a history of COPD requiring 6 liters of oxygen, paroxysmal A-fib, status post ablation, status post right nephrectomy. HOSPITAL COURSE: The patient had a chest x-ray that showed left base infiltrate. The patient was placed on steroids, antibiotics, as well as on BiPAP. The patient has had since improvement in his symptoms. Blood cultures have been negative. The patient will now be discharged home to be on cefuroxime 500 mg p.o. b.i.d. for 7 days and prednisone in a tapering dose. He will follow up with his primary at [place]. FINAL DIAGNOSES: * Acute on chronic respiratory failure. * COPD exacerbation. * Left-sided pneumonia, gram positive and gram negative. * Questionable acute diastolic heart failure. * History of atrial fibrillation with rapid ventricular rate with previous ablation. * Obesity. * Sleep apnea. * Anxiety/depression. Time spent in discharge planning and review of plan with the patient and nursing was 38 minutes. MD LESIA Driscoll/MINNIE TID: [id number] RECEIPT: [id number]
== END 2025-06-23 14:15 | disposition home or self-care (01) | DRG 871 ==
LOC: EDBD 13:02 → ER 13:05 → OVERFLOW 17:20 → TELE-CENTR 06-21 07:55 → DOU 06-21 08:11 → TELE-CENTR 06-22 15:19
PROVIDERS: ADMIT Internal Medicine; ATTEND Internal Medicine
PROC: 5A09357 Assistance with Respiratory Ventilation, Less than 24 Consecutive Hours, Continuous Positive Airway Pressure (ICD-10-PCS; 2025-06-20)
PROC: 5A09357 Assistance with Respiratory Ventilation, Less than 24 Consecutive Hours, Continuous Positive Airway Pressure (ICD-10-PCS; principal; 2025-06-21)
PROC: 5A09357 Assistance with Respiratory Ventilation, Less than 24 Consecutive Hours, Continuous Positive Airway Pressure (ICD-10-PCS; 2025-06-22)
PROC: 5A09357 Assistance with Respiratory Ventilation, Less than 24 Consecutive Hours, Continuous Positive Airway Pressure (ICD-10-PCS; 2025-06-23)
DX: A41.9 Sepsis, unspecified organism (principal); I50.31 Acute diastolic (congestive) heart failure; J15.69 Pneumonia due to other Gram-negative bacteria; J96.21 Acute and chronic respiratory failure with hypoxia; J96.22 Acute and chronic respiratory failure with hypercapnia; J15.9 Unspecified bacterial pneumonia; G93.49 Other encephalopathy; E87.29 Other acidosis; J44.0 Chronic obstructive pulmonary disease with (acute) lower respiratory infection; E66.9 Obesity, unspecified; F32.A Depression, unspecified; J44.1 Chronic obstructive pulmonary disease with (acute) exacerbation; Z66 Do not resuscitate; Z20.822 Contact with and (suspected) exposure to COVID-19; J43.9 Emphysema, unspecified; I48.0 Paroxysmal atrial fibrillation; F41.9 Anxiety disorder, unspecified; G47.30 Sleep apnea, unspecified; R73.9 Hyperglycemia, unspecified; Z90.5 Acquired absence of kidney; Z68.35 Body mass index [BMI] 35.0-35.9, adult; Z79.899 Other long term (current) drug therapy
CPT/HCPCS: 36415; 36600; 71045; 80048; 80053; 80061; 80202; 80307; 81001; 82306; 82607; 82805; 83036; 83605; 83735; 84100; 84443; 85025; 85610; 85730; 87040; 87081; 87426; 87804; 94640; 94660; 96365; 96366; 96367; 96368; 96375; 99291; 99292; G0378